=== PATIENT | male | born 1955 | race American Indian/Alaskan Native ===

== ENCOUNTER 2016-07-02 23:49 | Inpatient (IN) | payer MEDICARE, MEDICAID, OTHER ==
[2016-07-02 23:49] VITALS: BMI 31.0
--- NOTE | 2016-07-03 00:04 | C.PDOC ---
History Of Present Illness pt presents with increased shortness of breath, some chest discomfort with coughing. No f/c/n/v. Patient still smokes. Speaking in 3-4 word sentences. Time Seen by Provider: 07/03/16 00:03 History Per: Patient History/Exam Limitations: no limitations Onset/Duration Of Symptoms: Days Current Symptoms Are (Timing): Worse Initiating Event: Upper Respiratory Illness, Other Quality: Dull Exacerbating Factor(s): Coughing Current Respiratory Medications: See Home Med List Severity: Moderate Pain Scale Rating Of: 5 Associated Symptoms: Productive Cough. denies: Fever, Chills, Ankle/Leg Swelling Reports Recently: Seen In ED, Treated By A Physician, Hospitalized Recent travel outside of the [place]: No Additional History Per: Patient Past Medical History Reviewed: Historical Data, Nursing Documentation, Vital Signs Vital Signs: Last Vital Signs Temp 98.7 F 07/03/16 00:12 Pulse 102 H 07/03/16 01:22 Resp 20 07/03/16 01:22 BP 145/76 07/03/16 01:22 Pulse Ox 100 07/03/16 01:22 - Medical History PMH: Anxiety, Asthma, Bronchitis, COPD, Emphysema, HTN, Hypercholesterolemia Denies: Diabetes, Hepatitis, HIV, Chronic Kidney Disease, Seizures, Sexually Transmitted Disease - [facility] Procedures ALCOHOL DETOXIFICATION (07/16/14) DETOXIFICATION SERVICES FOR SUBSTANCE ABUSE TREATMENT (10/01/15) EXCISION OF TOE NAIL, EXTERNAL APPROACH (02/12/15) FLUOROSCOPY OF SUPERIOR VENA CAVA, GUIDANCE (02/21/15) HOME MANAGEMENT TREATMENT (02/12/15) INFLUENZA VACCINATION (12/19/14) INJECT/INFUSE NEC (02/12/14) INSERTION OF INFUSION DEV INTO SUP VENA CAVA, PERC APPROACH (09/09/15) INTRODUCE OF OTH THERAP SUBST INTO RESP TRACT, VIA OPENING (02/12/15) INTRODUCTION OF ANTI-INFLAM INTO RESP TRACT, VIA OPENING (08/27/15) MEDS MGMT FOR SUBSTANCE ABUSE TREATMENT, OTH REPL MED (01/11/16) NEBULIZER THERAPY (12/19/14) OXYGEN ENRICHMENT NEC (09/25/13) THERAPEUTIC EXERCISE TREATMENT OF MUSCULOSK WHOLE (02/12/15) ULTRASONOGRAPHY OF SUPERIOR VENA CAVA, GUIDANCE (02/21/15) VACCINATION NEC (09/25/13) Family History: States: No Known Family Hx - Social History Hx Tobacco Use: Yes Hx Alcohol Use: Yes (drinks vodka every day.) Hx Substance Use: No - Immunization History Hx Tetanus Toxoid Vaccination: Yes Hx Influenza Vaccination: Yes (01/2015) Hx Pneumococcal Vaccination: Yes (2011) Review Of Systems Constitutional: Negative for: Fever, Chills ENT: Negative for: Throat Pain Cardiovascular: Negative for: Chest Pain, Palpitations Respiratory: Positive for: Cough, Shortness of Breath Gastrointestinal: Negative for: Nausea, Vomiting, Abdominal Pain Genitourinary: Negative for: Dysuria Musculoskeletal: Negative for: Back Pain Skin: Negative for: Rash, Lesions, Jaundice Neurological: Negative for: Weakness Psych: Negative for: Anxiety Physical Exam - Physical Exam Appears: Non-toxic Skin: Warm, Dry Head: Atraumatic Teeth: Other (poor dentition) Neck: Supple Chest: Symmetrical Cardiovascular: Rhythm Regular Respiratory: No Rales, No Rhonchi, No Wheezing Gastrointestinal/Abdominal: Soft, No Tenderness, No Distention, No Guarding Back: Normal Inspection Extremity: Normal ROM Extremity: Bilateral: Atraumatic Neurological/Psych: Oriented x3, Normal Speech, Normal Cognition Gait: Other (with walker) ED Course And Treatment - Laboratory Results Result Diagrams: 07/03/16 00:46 07/03/16 01:18 ECG: Interpreted By Me, Viewed By Me ECG Rhythm: Sinus Rhythm (96), Nonspecific Changes Pulse Ox Interpretation: Normal - Radiology CXR: Interpreted by Me, Viewed By Me CXR Interpretation: Yes: Other (unchanged from 05/14/16). No: Infiltrates, Fracture, Pnemothorax Progress Note: blood work, solumedrol, duonebs, cxr, blood cultures. corrected calcium in 6.3 Critical Care Time - Critical Care Note Total Time (in mins): 30 Documented critical care: time excludes all time spent performing seperately billable procedures. Disposition Discussed With : Carlene Mayberry Comment: accepted the pt on her service and took over the care at 2:52 AM Doctor Will See Patient In The: Hospital Counseled Patient/Family Regarding: Studies Performed, Diagnosis - Disposition Disposition: HOSPITALIZED Disposition Time: 00:04 Condition: FAIR - POA Present On Arrival: Poor Glycemic Control - Clinical Impression Clinical Impression: Chronic obstructive lung disease, Dyspnea, Hypokalemia, Hypocalcemia Decision To Admit - Pt Status Changed To: Hospital Disposition Of: Inpatient - Admit Certification Admit to Inpatient:: After my assessment, the patient will require hospitalization for at least two midnights. This is because of the severity of symptoms shown, intensity of services needed, and/or the medical risk in this patient being treated as an outpatient. - InPatient: Physician Admission Certification: I certify that this patient requires 2 or more midnights of care for the following reason:: After my assessment, the patient will require hospitalization for at least two midnights. This is because of the severity of symptoms shown, intensity of services needed, and/or the medical risk in this patient being treated as an outpatient. - . Bed Request Type: Telemetry Admitting Physician: Carlene Mayberry Patient Diagnosis: Chronic obstructive lung disease, Dyspnea, Hypokalemia, Hypocalcemia
[2016-07-03] MEDS ORDERED: Albuterol-Ipratrop 3 mg / 0.5 (3 ml) UD ONE (00:40)
[2016-07-03] MEDS: Albuterol-Ipratrop 3 mg / 0.5 (3 ml) UD IH SCH ×5 (00:45→20:27)
[2016-07-03 00:49] LABS: BASO # 0.1 K/uL (0.0-0.2); EOS # 0.1 K/uL (0.0-0.7); EOS % 0.6 % (0.0-4.0); LYMPH # 1.8 K/uL (1.0-4.3); MEAN CELL VOLUME 79.2 fL (80.0-94.0); MEAN CORPUSCULAR HEMOGLOBIN 24.7 pg (27.0-31.0); MEAN CORPUSCULAR HGB CONC 31.2 g/dL (33.0-37.0); MEAN PLATELET VOLUME 8.9 fL (7.2-11.7); MONO % 9.7 % (0.0-10.0); RED CELL DISTRIBUTION WIDTH 18.6 % (11.5-14.5); WHITE BLOOD COUNT 9.8 K/uL (4.8-10.8)
[2016-07-03 00:50] LABS: ABG ALLEN TEST POS; DRAW SITE RRAD
[2016-07-03 01:02] LABS: INR 1.1
[2016-07-03 01:30] LABS: CHLORIDE 115 mmol/L (98-107); SODIUM 138 mmol/L (132-148)
[2016-07-03 01:32] LABS: ALB/GLOB RATIO 0.8 (1.0-2.1); ALKALINE PHOSPHATASE 39 U/L (38-126); AST/SGOT 18 U/L (17-59); BILIRUBIN,TOTAL 0.5 mg/dL (0.2-1.3); BLOOD UREA NITROGEN 8 mg/dL (9-20); GFR AFRICAN-AMERICAN > 60; TOTAL PROTEIN 4.5 g/dL (6.3-8.3)
[2016-07-03 01:33] LABS: ALT/SGPT 23 U/L (21-72); GLUCOSE,RANDOM 49 mg/dL (75-110)
[2016-07-03 02:08] LABS: POTASSIUM 2.3 mmol/L (3.6-5.2)
[2016-07-03 02:09] LABS: CALCIUM 4.7 mg/dl (8.6-10.4); CARBON DIOXIDE 6 mmol/L (22-30)
[2016-07-03] MEDS ORDERED: Potassium Chloride 20 mEq ER Tab PO STA (02:12)
[2016-07-03] MEDS ORDERED: Potassium Chloride 20 mEq ER Tab PO ONE (02:15)
[2016-07-03] MEDS ORDERED: Potassium Chloride 10 mEq ER Tab PO STA (02:17)
[2016-07-03 04:07] VITALS: RESP 20
--- NOTE | 2016-07-03 08:59 | RAD ---
PROCEDURE: CHEST RADIOGRAPH, 1 VIEW HISTORY: SOB COMPARISON: Comparison is made to 05/14/2016 FINDINGS: LUNGS: No evidence of new infiltrate or consolidation in the lungs. PLEURA: No pneumothorax or pleural fluid seen. CARDIOVASCULAR: Normal. OSSEOUS STRUCTURES: No significant abnormalities. VISUALIZED UPPER ABDOMEN: Normal. OTHER FINDINGS: None. IMPRESSION: No active disease.
[2016-07-03] MEDS: MethylPREDNISolone 40 mg Vial IVP SCH ×2 (09:52→21:18)
[2016-07-03] MEDS: Potassium Chloride 20 mEq ER Tab PO SCH (09:52)
[2016-07-03] MEDS: Magnesium Oxide 400 mg Tab UD PO SCH ×2 (09:52→17:26)
[2016-07-03] MEDS: cefTRIAXone IV 1 gm in Dextros 50 ML IVPB SCH (11:46)
[2016-07-03] MEDS: Azithromycin 500 MG in Sodium Chloride 0.9% 250 ML IVPB SCH (11:48)
[2016-07-03] MEDS: Calcium-Vit D 250 mg-125 Units Tab UD PO SCH ×2 (11:53→13:06)
[2016-07-03 19:18] LABS: RBC URINE < 1 /hpf (0-3); URINE BILIRUBIN NEGATIVE (NEGATIVE); URINE BLOOD 1+ (NEGATIVE); URINE COLOR Yellow (YELLOW); URINE GLUCOSE (UA) 3+ mg/dL (Normal); URINE KETONE 2+ mg/dL (NEGATIVE); URINE LEUKOCYTE ESTERASE NEG Leu/uL (Negative); URINE PROTEIN NEGATIVE (NEGATIVE); URINE UROBILINOGEN NORMAL mg/dL (0.2-1.0); WBC URINE < 1 /hpf (0-5)
[2016-07-03] MEDS: Fluticasone-Salmeterol 500-50mcg Diskus INH SCH (20:26)
--- NOTE | 2016-07-03 21:44 | HP ---
CHIEF COMPLAINT: Shortness of breath, coughing. HISTORY OF PRESENT ILLNESS: The patient is a 61-year-old male with history of asthma, COPD, emphysema, hypertension, degenerative joint disease, history of ethanol abuse. Came with increased shortness of breath, chest discomfort with coughing. No fever, no chills. No nausea, vomiting, diarrhea. The patient actively smokes and drinks. He was not able to say complete sentence. Symptoms started days ago, worse, then he came to the Emergency Room. Started with upper respiratory tract infection. Cough is productive. PAST MEDICAL HISTORY: Anxiety, asthma, bronchitis, COPD, emphysema, hypertension, hypercholesterolemia. FAMILY HISTORY: Father and mother noncontributory. SOCIAL HISTORY: Smoking, according to patient one cigarette per day but this is not possible. Alcohol, drinks vodka every day. Substance abuse denied. REVIEW OF SYSTEMS: The patient seen and examined in his room. Having tremors, coughing with shortness of breath. No hematuria or hematochezia. No swelling of the leg. No chest pain, no palpitation, no headache, no dizziness. PHYSICAL EXAMINATION: VITAL SIGNS: Temperature 98.7, pulse 72, blood pressure 132/73, respiratory rate 20. HEENT: Head normocephalic, atraumatic. Eyes PERRLA. Extraocular muscles intact. Conjunctivae pink. Eyelids unremarkable. Nose patent. Mucous membranes moist. NECK: Supple. No carotid bruit, JVD or thyromegaly. CHEST: Bilaterally symmetrical. HEART: S1, S2 positive. LUNGS: Positive wheezing bilaterally. ABDOMEN: Soft. Bowel sounds positive. No organomegaly. EXTREMITIES: No edema, no cyanosis. NEUROLOGIC: The patient is awake, alert, moving all 4 extremities. No focal deficits. LABORATORY DATA: White blood cells 9.8, hemoglobin 103, hematocrit 33.0, platelets noted , Sodium 138, potassium 2.3, BUN 8, creatinine 0.5, calcium 4.7 , magnesium 1.1. ASSESSMENT AND PLAN: The patient is a 61-year-old male with anemia, hypokalemia , hypocalcemia, hypomagnesemia, replaced; emphysema, bronchitis. EKG and chest x-ray done, reviewed by me. According to chest x-ray, no active disease. History of hypertension, hypercholesterolemia, anxiety, degenerative joint disease. Last admission, he got rehab also. Started on Advair. Calcium is replaced. Potassium is replaced. Magnesium replaced. Gastrointestinal protection given. Started on low dose of Solu-Medrol. Aspirin given. Rocephin , azithromycin started. We will start some Librium also. We will follow up. Carlene Mayberry MD cc: [id number] TT: 07/03/2016 21:44:22 sn MTDDonte
[2016-07-04] MEDS: Albuterol-Ipratrop 3 mg / 0.5 (3 ml) UD IH SCH ×4 (01:26→20:57)
[2016-07-04 07:22] LABS: HEMATOCRIT 29.2 % (35.0-51.0); MEAN CELL VOLUME 77.7 fL (80.0-94.0); MEAN CORPUSCULAR HEMOGLOBIN 24.7 pg (27.0-31.0); MEAN CORPUSCULAR HGB CONC 31.8 g/dL (33.0-37.0); MEAN PLATELET VOLUME 8.7 fL (7.2-11.7); RED CELL DISTRIBUTION WIDTH 18.6 % (11.5-14.5); WHITE BLOOD COUNT 8.7 K/uL (4.8-10.8)
[2016-07-04 08:02] LABS: THYROID STIMULATING HORMONE 0.29 mIU/L (0.46-4.68)
[2016-07-04 08:07] LABS: CHLORIDE 101 mmol/L (98-107)
[2016-07-04 08:08] LABS: SODIUM 136 mmol/L (132-148)
[2016-07-04 08:11] LABS: BLOOD UREA NITROGEN 20 mg/dL (9-20); CALCIUM 8.6 mg/dl (8.6-10.4); CARBON DIOXIDE 20 mmol/L (22-30); GFR AFRICAN-AMERICAN > 60; GLUCOSE,RANDOM 149 mg/dL (75-110)
[2016-07-04] MEDS: Fluticasone-Salmeterol 500-50mcg Diskus INH SCH ×2 (08:21→20:57)
[2016-07-04 09:40] LABS: MAGNESIUM 1.8 mg/dL (1.6-2.3)
[2016-07-04] MEDS: Azithromycin 500 MG in Sodium Chloride 0.9% 250 ML IVPB SCH (10:07)
[2016-07-04] MEDS: MethylPREDNISolone 40 mg Vial IVP SCH ×2 (10:07→21:24)
[2016-07-04] MEDS: cefTRIAXone IV 1 gm in Dextros 50 ML IVPB SCH (10:07)
[2016-07-04] MEDS: Calcium-Vit D 250 mg-125 Units Tab UD PO SCH (10:08)
[2016-07-04] MEDS: Magnesium Oxide 400 mg Tab UD PO SCH (10:08)
[2016-07-04] MEDS: Potassium Chloride 20 mEq ER Tab PO SCH (10:44)
--- NOTE | 2016-07-04 23:18 | CARD ---
APPROVED REPORT EKG Measurement Heart [id number] <Conclusion> Normal sinus rhythm Normal ECG
[2016-07-05] MEDS: Albuterol-Ipratrop 3 mg / 0.5 (3 ml) UD IH SCH ×4 (02:19→19:49)
[2016-07-05 07:58] VITALS: O2SAT 100
--- NOTE | 2016-07-05 09:55 | PN ---
DATE: 07/04/2016 SUBJECTIVE: The patient is seen and examined on the bedside, is comfortable, cough is getting better. Shortness of breath is getting better. No nausea, vomiting, or diarrhea. No hematuria or hematochezia. No swelling of the leg. No chest pain or palpitation. PHYSICAL EXAMINATION: VITAL SIGNS: Temperature 97.8, pulse 80, blood pressure 123/79, respiratory rate 20. HEENT: Head normocephalic, atraumatic. Eyes: PERRLA. Extraocular muscles intact. Conjunctivae pink. Eyelids unremarkable. Nose patent. Mucous membranes moist. NECK: Supple. No carotid bruit, JVD or thyromegaly. CHEST: Bilaterally symmetrical. HEART: S1, S2 positive. LUNGS: Positive wheezing bilaterally. ABDOMEN: Soft. Bowel sounds present. No organomegaly. EXTREMITIES: No edema, no cyanosis. NEUROLOGIC: The patient is awake, alert, moving all 4 extremities. No focal deficits. MEDICATIONS: Advair, azithromycin, vitamins, Pepcid, Rocephin, Singulair, Solu -Medrol, and Tylenol. LABORATORY DATA: White blood cell noted , hemoglobin 9.3, hematocrit 29.2, platelets 297. Sodium 136, potassium 4.0, BUN 20, creatinine 1.0, glucose is 149, magnesium 1.8. TSH 0.29. ASSESSMENT AND PLAN: The patient is a 61-year-old male seen by me on 2016. Has anemia, history of hypokalemia, replaced, now is within normal limits. History of hypomagnesemia, replaced, now it is within normal limits. History of hypocalcemia, replaced, now it is within normal limits. Hypothyroidism, came with elevation of chronic obstructive pulmonary disease, asthma, history of hypertension, degenerative joint disease, history of ethanol abuse, emphysema, hypercholesterolemia, anxiety, multiple times bronchitis and noncompliant. Still drinking and smoking getting Librium for alcohol delirium tremens and getting tapering dose of steroids. Physical therapy, out of bed. GI prophylaxis. Repeat labs. We will follow up. Carlene Mayberry MD cc: [id number] TT: 07/05/2016 09:54:49 Confirmation # [id number] Dictation # [id number] an MTDD
[2016-07-05] MEDS: Fluticasone-Salmeterol 500-50mcg Diskus INH SCH ×2 (10:02→19:49)
[2016-07-05] MEDS: MethylPREDNISolone 40 mg Vial IVP SCH ×3 (11:21→22:55)
[2016-07-05] MEDS: cefTRIAXone IV 1 gm in Dextros 50 ML IVPB SCH (11:21)
[2016-07-05] MEDS: Azithromycin 500 MG in Sodium Chloride 0.9% 250 ML IVPB SCH (11:21)
[2016-07-05] MEDS: Calcium-Vit D 250 mg-125 Units Tab UD PO SCH (11:21)
--- NOTE | 2016-07-06 01:50 | PN ---
DATE: 07/05/2016 SUBJECTIVE: The patient is a 61-year-old male. The patient is seen and examined at the bedside, loo ks comfortable. No nausea, vomiting, or diarrhea. No hematuria or hematochezia. No swelling of the leg. No chest pain, palpitations. No dizziness. No fever, no chills. PHYSICAL EXAMINATION: VITAL SIGNS: Temperature is 97.8, pulse 79, blood pressure 122/70, respiratory rate 20. HEAD: Normocephalic, atraumatic. EYES: PERRLA, extraocular muscles intact, conjunctivae clear. Nose: Patent. Mucous membranes mois t. NECK: Supple. No carotid bruit, JVD, or thyromegaly. CHEST: Bilaterally symmetrical. HEART: S1, S2 positive. LUNGS: Clear to auscultation. ABDOMEN: Soft. Bowel sounds present. No organomegaly. EXTREMITIES: No edema, no cyanosis. NEUROLOGIC: The patient is awake, alert, moving all 4 extremities. No focal deficits. MEDICATIONS: Advair, azithromycin, DuoNeb, heparin, Librium on a tapering dose, Pepcid, Rocephin, Si ngulair, Solu-Medrol tapering dose, Tylenol. LABORATORY DATA: We do not have recent labs today, but I reviewed old labs. ASSESSMENT AND PLAN: The patient is a 61-year-old male with anemia, history of hypokalemia; replaced , hypocalcemia; replaced, diabetes mellitus, glucosuria, ketosuria, hematuria. Came with exacerbatio n of chronic obstructive pulmonary disease, asthma, bronchitis, emphysema. History of hypertension, degenerative joint disease, history of ethanol abuse. Getting a tapering dose of Librium and getting a tapering dose of steroids and antibiotics. We will continue azithromycin and Rocephin for bronchi tis, Advair, Singulair for breathing, Pepcid for GI prophylaxis. Repeat labs. We will follow up. Carlene Mayberry MD cc: [id number] TT: 07/06/2016 01:49:34 Confirmation # [id number] Dictation # [id number] vn
[2016-07-06] MEDS: Albuterol-Ipratrop 3 mg / 0.5 (3 ml) UD IH SCH ×2 (01:56→07:44)
[2016-07-06] MEDS: Fluticasone-Salmeterol 500-50mcg Diskus INH SCH (07:44)
[2016-07-06 08:44] VITALS: BP 109/70; TEMP 98.2
[2016-07-06] MEDS: Calcium-Vit D 250 mg-125 Units Tab UD PO SCH (09:42)
[2016-07-06] MEDS: MethylPREDNISolone 40 mg Vial IVP SCH (09:42)
[2016-07-06] MEDS: cefTRIAXone IV 1 gm in Dextros 50 ML IVPB SCH (09:44)
[2016-07-06] MEDS ORDERED: Pneumococcal 23-Valent Vaccine IM ONE (10:00)
[2016-07-06] MEDS: Azithromycin 500 MG in Sodium Chloride 0.9% 250 ML IVPB SCH (11:53)
[2016-07-06 12:34] VITALS: PULSE 81
--- NOTE | 2016-07-06 12:44 | CP.PCM.PN ---
Subjective - Date & Time of Evaluation Date of Evaluation: 07/06/16 Time of Evaluation: 12:00 - Subjective Subjective: Pt seen an d examined today states feels better, sob improved, denies any chest pain, sob, palpitations no tremors noted Objective - Vital Signs/Intake and Output Vital Signs (last 24 hours): Temp Pulse Resp BP Pulse Ox 98.2 F 81 20 109/70 100 07/06/16 08:42 07/06/16 10:00 07/06/16 08:42 07/06/16 08:42 07/06/16 08:42 Intake and Output: 07/06/16 07/06/16 06:59 18:59 Output Total 450 Balance -450 - Medications Medications: Current Medications Acetaminophen (Tylenol 325mg Tab) 650 mg PO Q4H PRN PRN Reason: pain fever Albuterol/Ipratropium (Duoneb 3 Mg/0.5 Mg (3 Ml) Ud) 3 ml IH RQ6 [facility] Last Admin: 07/06/16 07:44 Dose: 3 ml Calcium/Vitamin D (Oscal-D 250 Mg-125 Units Tab) 1 tab PO DAILY [facility] Last Admin: 07/06/16 09:42 Dose: 1 tab Chlordiazepoxide (Librium) 5 mg PO Q8 [facility] Last Admin: 07/06/16 05:55 Dose: 5 mg Famotidine (Pepcid) 40 mg PO DAILY [facility] Last Admin: 07/06/16 09:43 Dose: 40 mg Heparin Sodium (Porcine) (Heparin) 5,000 units SC Q12 [facility] Last Admin: 07/06/16 09:41 Dose: 5,000 units Azithromycin 500 mg/ Sodium (Chloride) 250 mls @ 250 mls/hr IVPB DAILY [facility] Last Admin: 07/06/16 11:53 Dose: 250 mls/hr Ceftriaxone Sodium (Rocephin Iv 1 Gm Duplex) 50 mls @ 100 mls/hr IVPB DAILY [facility] Last Admin: 07/06/16 09:44 Dose: 100 mls/hr Methylprednisolone (Solu-Medrol) 10 mg IVP Q12 [facility] Last Admin: 07/06/16 09:42 Dose: 10 mg Montelukast Sodium (Singulair) 10 mg PO HS [facility] Last Admin: 07/05/16 21:10 Dose: 10 mg Fluticasone/Salmeterol (Advair Diskus 500/50) 1 puff INH RQ12 [facility] Last Admin: 07/06/16 07:44 Dose: 1 puff - Labs Labs: 07/04/16 07:13 07/04/16 07:13 PT 12.0 SECONDS (9.7-12.2) 07/03/16 00:46 INR 1.1 07/03/16 00:46 APTT 29 SECONDS (21-34) 07/03/16 00:46 Assessment and Plan - Assessment and Plan (Free Text) Assessment: A/P 61 YR old male admitted for exc. asthma/ alcohol intoxication vss- stable spo2- 100 % Room air seen by Dr. Ramirez, cleared for discharge home today an df/u with Dr. Ramirez office next week discharge plan discussed with patient who understands and agrees with plan Pt instructed to returns to ED if symptoms get worse Meds to bedside offered and patient accepted
--- NOTE | 2016-07-19 09:20 | DS ---
CHIEF COMPLAINT: Shortness of breath, coughing. HISTORY OF PRESENT ILLNESS: The patient is a 61-year-old male with history of asthma, COPD, emphysem a, hypertension, degenerative joint disease, history of ethanol abuse. Came with increasing shortnes s of breath, chest discomfort, coughing. No fever, no chills. No nausea, vomiting, diarrhea. The p atient is actively smoking and is drinking. We admitted the patient, gave nebulizer treatment, stero ids, antibiotics, improved, discharged home. Banana bag was given, thiamine given, Librium given. PAST MEDICAL HISTORY: Anxiety, asthma, bronchitis, COPD, emphysema, hypertension, hypercholesterolem ia. FAMILY HISTORY: Father and mother noncontributory. SOCIAL HISTORY: Smoking, according to patient, 1 cigarette per day. Alcohol yes, using vodka every day. Substance abuse denied. REVIEW OF SYSTEMS: The patient was seen and examined on the bedside. Looks comfortable. No nausea, vomiting, diarrhea. No hematuria, no hematochezia. Cough is better. Shortness of breath is better . Wheezing is better. Tremors are better. Feels better. No palpitation. PHYSICAL EXAMINATION: VITAL SIGNS: Temperature 98.2, pulse 81, respiratory rate 20, blood pressure 109/70, pulse oximetry 100%. HEENT: Head normocephalic, atraumatic. Eyes, PERRLA. Extraocular muscles intact. Conjunctivae [place]. Eyelids unremarkable. Nose patent. Mucous membranes moist. NECK: Supple. No carotid bruit, no JVD, no thyromegaly. CHEST: Bilaterally symmetrical. HEART: S1, S2 positive. LUNGS: Clear to auscultation. ABDOMEN: Soft. Bowel sounds present. No organomegaly. EXTREMITIES: No edema, no cyanosis. NEUROLOGIC: The patient is awake, alert, moving all 4 extremities. No focal deficits. LABORATORIES: White blood cells 8.7, hemoglobin 9.3, hematocrit 29.2, platelets 297. Sodium 136, po tassium 4.0, BUN 20, creatinine 1.0, glucose 149. ASSESSMENT AND PLAN: The patient is a 61-year-old male with anemia, hyperglycemia, came with exacerb ation of asthma, chronic obstructive pulmonary disease, bronchitis, history of ethanol toxicity, hype rtension, hypercholesterolemia, noncompliant. The patient was admitted, antibiotics, gave bronchodil ators, Solu-Medrol given, got better, discharged home on 07/06/2016 with followup with primary care ysician next week. Discharge instruction was given. The patient understands and agreed with the susanne n. Prescription of medications given by the nurse practitioner, Opal Link APN. Will follow up a s outpatient. Carlene Mayberry MD cc: [id number] TT: 07/19/2016 09:19:48 en
== END 2016-07-06 14:30 | disposition home or self-care (01) | DRG 191 ==
LOC: C.ER 23:49 → C.9E 07-03 02:53 → C.5T 07-03 03:27
PROVIDERS: ADMIT Internal Medicine; ATTEND Internal Medicine
DX: J44.1 Chronic obstructive pulmonary disease with (acute) exacerbation (principal); F10.231 Alcohol dependence with withdrawal delirium; E83.42 Hypomagnesemia; E83.51 Hypocalcemia; J45.901 Unspecified asthma with (acute) exacerbation; D64.9 Anemia, unspecified; I10 Essential (primary) hypertension; E03.9 Hypothyroidism, unspecified; E78.00 Pure hypercholesterolemia, unspecified; F17.200 Nicotine dependence, unspecified, uncomplicated; E11.9 Type 2 diabetes mellitus without complications; E87.6 Hypokalemia; F41.9 Anxiety disorder, unspecified

== ENCOUNTER 2016-07-29 20:18 | Inpatient (IN) | payer MEDICARE, OTHER ==
[2016-07-29 20:18] VITALS: BMI 31.0
--- NOTE | 2016-07-29 21:18 | C.PDOC ---
History Of Present Illness patient presents with shortness of breath, speaking in 4-5 word sentences. No f/ c/n/v. Still smokes and drinks. No cp or palpitations Time Seen by Provider: 07/29/16 21:18 Chief Complaint (Nursing): Shortness Of Breath History Per: Patient History/Exam Limitations: no limitations Onset/Duration Of Symptoms: Days Current Symptoms Are (Timing): Still Present Initiating Event: Upper Respiratory Illness Quality: Dull Exacerbating Factor(s): Coughing Current Respiratory Medications: See Home Med List Severity: Moderate Pain Scale Rating Of: 5 Associated Symptoms: denies: Fever, Chills, Anxiety Reports Recently: Seen In ED, Treated By A Physician, Hospitalized Recent travel outside of the [place]: No Additional History Per: Patient Past Medical History Reviewed: Historical Data, Nursing Documentation, Vital Signs Vital Signs: Last Vital Signs Temp 98.6 F 07/29/16 20:26 Pulse 100 H 07/29/16 21:30 Resp 24 07/29/16 20:32 BP 134/87 07/29/16 20:26 Pulse Ox 100 07/29/16 22:58 - Medical History PMH: Anxiety, Asthma, Bronchitis, COPD, Emphysema, HTN, Hypercholesterolemia Denies: Diabetes, Hepatitis, HIV, Chronic Kidney Disease, Seizures, Sexually Transmitted Disease - [facility] Procedures ALCOHOL DETOXIFICATION (07/16/14) DETOXIFICATION SERVICES FOR SUBSTANCE ABUSE TREATMENT (10/01/15) EXCISION OF TOE NAIL, EXTERNAL APPROACH (02/12/15) FLUOROSCOPY OF SUPERIOR VENA CAVA, GUIDANCE (02/21/15) HOME MANAGEMENT TREATMENT (02/12/15) INFLUENZA VACCINATION (12/19/14) INJECT/INFUSE NEC (02/12/14) INSERTION OF INFUSION DEV INTO SUP VENA CAVA, PERC APPROACH (09/09/15) INTRODUCE OF OTH THERAP SUBST INTO RESP TRACT, VIA OPENING (02/12/15) INTRODUCTION OF ANTI-INFLAM INTO RESP TRACT, VIA OPENING (08/27/15) MEDS MGMT FOR SUBSTANCE ABUSE TREATMENT, OTH REPL MED (01/11/16) NEBULIZER THERAPY (12/19/14) OXYGEN ENRICHMENT NEC (09/25/13) THERAPEUTIC EXERCISE TREATMENT OF MUSCULOSK WHOLE (02/12/15) ULTRASONOGRAPHY OF SUPERIOR VENA CAVA, GUIDANCE (02/21/15) VACCINATION NEC (09/25/13) Family History: States: No Known Family Hx - Social History Hx Tobacco Use: Yes Hx Alcohol Use: Yes (drinks vodka everyday) Hx Substance Use: No - Immunization History Hx Tetanus Toxoid Vaccination: Yes Hx Influenza Vaccination: Yes (01/2015) Hx Pneumococcal Vaccination: Yes (2011) Review Of Systems Constitutional: Negative for: Fever, Chills Eyes: Negative for: Redness ENT: Negative for: Throat Pain Cardiovascular: Negative for: Chest Pain Respiratory: Positive for: Cough, Shortness of Breath Gastrointestinal: Negative for: Nausea, Vomiting Genitourinary: Negative for: Dysuria Musculoskeletal: Negative for: Back Pain Skin: Negative for: Rash, Lesions, Jaundice, Bruising Neurological: Negative for: Weakness Psych: Negative for: Anxiety Physical Exam - Physical Exam Appears: Non-toxic Skin: Warm, Dry Head: Atraumatic Oral Mucosa: Moist Neck: Supple Chest: Symmetrical Cardiovascular: Rhythm Regular Respiratory: Decreased Breath Sounds, No Rales, No Rhonchi, Wheezing Gastrointestinal/Abdominal: Soft, Tenderness (mild rlq lymph node), No Distention Back: Normal Inspection, No CVA Tenderness Extremity: Normal ROM Extremity: Bilateral: Atraumatic, Normal Color And Temperature, Normal ROM Neurological/Psych: Oriented x3, Normal Speech, Normal Cognition Gait: Steady ED Course And Treatment - Laboratory Results Result Diagrams: 07/29/16 22:08 07/29/16 22:08 ECG: Interpreted By Me, Viewed By Me ECG Rhythm: Sinus Rhythm (102), Nonspecific Changes O2 Sat by Pulse Oximetry: 100 Pulse Ox Interpretation: Normal - Radiology CXR: Interpreted by Me, Viewed By Me CXR Interpretation: Yes: Other (unchanged from 07/03/16). No: Infiltrates, Fracture, Pnemothorax Progress Note: nebs, steroids, fluids Disposition Discussed With : Carlene Mayberry Comment: accepted the pt on his service and took over the care at 12:08AM Doctor Will See Patient In The: Hospital Counseled Patient/Family Regarding: Studies Performed, Diagnosis - Disposition Disposition: HOSPITALIZED Disposition Time: 21:18 Condition: FAIR - POA Present On Arrival: Poor Glycemic Control - Clinical Impression Clinical Impression: COPD (chronic obstructive pulmonary disease), Alcohol abuse, Alcohol withdrawal Decision To Admit - Pt Status Changed To: Hospital Disposition Of: Inpatient - Admit Certification Admit to Inpatient:: After my assessment, the patient will require hospitalization for at least two midnights. This is because of the severity of symptoms shown, intensity of services needed, and/or the medical risk in this patient being treated as an outpatient. - InPatient: Physician Admission Certification: I certify that this patient requires 2 or more midnights of care for the following reason:: After my assessment, the patient will require hospitalization for at least two midnights. This is because of the severity of symptoms shown, intensity of services needed, and/or the medical risk in this patient being treated as an outpatient. - . Bed Request Type: Regular Admitting Physician: Carlene Mayberry Patient Diagnosis: COPD (chronic obstructive pulmonary disease), Alcohol abuse, Alcohol withdrawal
[2016-07-29] MEDS: Albuterol-Ipratrop 3 mg / 0.5 (3 ml) UD IH SCH ×3 (21:30→21:56)
[2016-07-29] MEDS ORDERED: Albuterol-Ipratrop 3 mg / 0.5 (3 ml) UD ONE (21:34)
[2016-07-29 22:11] LABS: HEMATOCRIT 30.4 % (35.0-51.0); MEAN CELL VOLUME 76.8 fL (80.0-94.0); MEAN CORPUSCULAR HEMOGLOBIN 24.7 pg (27.0-31.0); MEAN CORPUSCULAR HGB CONC 32.2 g/dL (33.0-37.0); MEAN PLATELET VOLUME 8.1 fL (7.2-11.7); PLATELET COUNT 367 K/uL (130-400); RED CELL DISTRIBUTION WIDTH 19.8 % (11.5-14.5)
[2016-07-29 22:19] LABS: CHLORIDE 102 mmol/L (98-107)
[2016-07-29 22:20] LABS: POTASSIUM 3.3 mmol/L (3.6-5.2); SODIUM 139 mmol/L (132-148)
[2016-07-29 22:22] LABS: ALB/GLOB RATIO 1.1 (1.0-2.1); ALKALINE PHOSPHATASE 93 U/L (38-126); AST/SGOT 20 U/L (17-59); BILIRUBIN,TOTAL 0.8 mg/dL (0.2-1.3); BLOOD UREA NITROGEN 13 mg/dL (9-20); CARBON DIOXIDE 20 mmol/L (22-30); GFR AFRICAN-AMERICAN > 60; TOTAL PROTEIN 7.5 g/dL (6.3-8.3)
[2016-07-29 22:23] LABS: ALCOHOL SERUM 25 mg/dl (0-10); ALT/SGPT 14 U/L (21-72); CALCIUM 8.7 mg/dl (8.6-10.4); GLUCOSE,RANDOM 133 mg/dL (75-110)
[2016-07-29 22:29] LABS: ABG ALLEN TEST POS; DRAW SITE RRA
[2016-07-30 00:08] LABS: NEUTROPHIL 86 % (50-75); TOTAL CELLS COUNTED 100
[2016-07-30 02:18] VITALS: RESP 20
[2016-07-30] MEDS: Albuterol-Ipratrop 3 mg / 0.5 (3 ml) UD INH SCH ×2 (05:36→08:59)
--- NOTE | 2016-07-30 08:28 | RAD ---
HISTORY: SOB COMPARISON: Chest x-ray performed 07/03/16 TECHNIQUE: Chest, one view. FINDINGS: LUNGS: No focal consolidation. Please note that chest x-ray has limited sensitivity for the detection of pulmonary masses. PLEURA: No significant pleural effusion identified. No definite pneumothorax . CARDIOVASCULAR: The cardiomediastinal silhouette appears within normal limits of size. OSSEOUS STRUCTURES: No acute osseous abnormality identified. VISUALIZED UPPER ABDOMEN: Unremarkable. OTHER FINDINGS: None. IMPRESSION: No focal consolidation, significant pleural effusion, or definite pneumothorax identified.
[2016-07-30] MEDS ORDERED: Potassium Chloride 20 mEq ER Tab PO STA (09:37)
[2016-07-30] MEDS ORDERED: Multivitamin (MVI) 10 ML, Thiamine 100 MG, Folic Acid 1 MG in Sodium Chloride 0.9% 1,00... IV ONE (10:30)
[2016-07-30 11:13] LABS: RBC URINE < 1 /hpf (0-3); URINE BILIRUBIN NEGATIVE (NEGATIVE); URINE BLOOD NEGATIVE (NEGATIVE); URINE COLOR Yellow (YELLOW); URINE GLUCOSE (UA) 3+ mg/dL (Normal); URINE KETONE TRACE mg/dL (NEGATIVE); URINE LEUKOCYTE ESTERASE NEG Leu/uL (Negative); URINE PROTEIN 1+ mg/dL (NEGATIVE); URINE UROBILINOGEN NORMAL mg/dL (0.2-1.0); WBC URINE < 1 /hpf (0-5)
[2016-07-30] MEDS: Albuterol-Ipratrop 3 mg / 0.5 (3 ml) UD IH SCH ×3 (11:38→19:39)
[2016-07-30 12:14] LABS: BASO % 0.2 % (0.0-2.0); HEMATOCRIT 29.4 % (35.0-51.0); LYMPH # 0.3 K/uL (1.0-4.3); LYMPH % 9.8 % (20.0-40.0); MEAN CELL VOLUME 77.4 fL (80.0-94.0); MEAN CORPUSCULAR HEMOGLOBIN 23.9 pg (27.0-31.0); MEAN CORPUSCULAR HGB CONC 30.9 g/dL (33.0-37.0); MEAN PLATELET VOLUME 8.7 fL (7.2-11.7); MONO # 0.2 K/uL (0.0-0.8); MONO % 8.2 % (0.0-10.0); NRBC % 0.1 % (0.0-2.0); PLATELET COUNT 334 K/uL (130-400); RED CELL DISTRIBUTION WIDTH 19.6 % (11.5-14.5); WHITE BLOOD COUNT 2.8 K/uL (4.8-10.8)
[2016-07-30 12:17] LABS: CHLORIDE 101 mmol/L (98-107)
[2016-07-30 12:18] LABS: POTASSIUM 3.7 mmol/L (3.6-5.2); SODIUM 137 mmol/L (132-148)
[2016-07-30 12:20] LABS: ALB/GLOB RATIO 1.2 (1.0-2.1); ALKALINE PHOSPHATASE 74 U/L (38-126); AST/SGOT 17 U/L (17-59); BILIRUBIN,TOTAL 0.9 mg/dL (0.2-1.3); BLOOD UREA NITROGEN 14 mg/dL (9-20); CARBON DIOXIDE 21 mmol/L (22-30); GFR AFRICAN-AMERICAN > 60; TOTAL PROTEIN 6.9 g/dL (6.3-8.3)
[2016-07-30 12:21] LABS: ALT/SGPT 10 U/L (21-72); CALCIUM 8.2 mg/dl (8.6-10.4); GLUCOSE,RANDOM 144 mg/dL (75-110)
[2016-07-30 13:54] LABS: NEUTROPHIL 87 % (50-75); TOTAL CELLS COUNTED 100
[2016-07-30] MEDS: Fluticasone-Salmeterol 500-50mcg Diskus INH SCH (19:39)
[2016-07-30] MEDS: MethylPREDNISolone 40 mg Vial IVP SCH (21:26)
[2016-07-31] MEDS: Albuterol-Ipratrop 3 mg / 0.5 (3 ml) UD IH SCH ×4 (01:39→20:39)
[2016-07-31] MEDS: Fluticasone-Salmeterol 500-50mcg Diskus INH SCH ×2 (07:52→20:39)
--- NOTE | 2016-07-31 09:18 | HP ---
The patient is a 61-year-old male. The patient is seen and examined on 2016. CHIEF COMPLAINT: Shortness of breath, coughing, cannot speak even 1 sentence. HISTORY OF PRESENT ILLNESS: The patient is a 61-year-old male with past medical history of asthma, emphysema. Came with shortness of breath, coughing. No fever, chills. No nausea, vomiting, diarrhea. Still smokes and drinks. No chest pain, no palpitation, but has shortness of breath, not exacerbation and relieving factors. It is from days. Still present at the time of admission. History of upper respiratory tract illness, history of ethanol abuse. Denies fever, chills, anxiety. Tried to use inhalers, but it was not helping as outpatient. She came in the hospital after failure of outpatient treatment. PAST MEDICAL HISTORY: Anxiety, asthma, bronchitis, COPD, emphysema, hypertension, hypercholesterolemia. FAMILY HISTORY: Father and mother noncontributory. HABITS: Smoking yes. Alcohol yes, drinks vodka every day. Substance abuse. ALLERGIES: The patient is not allergic with any medications. HOME MEDICATIONS: Reviewed by me. REVIEW OF SYSTEMS: The patient seen and examined on the bedside, looks comfortable. No nausea, vomiting, diarrhea. No hematuria, no hematochezia. No swelling of the legs, but having shortness of breath, even cannot say a few sentences together. No fever, no chills. PHYSICAL EXAMINATION: VITAL SIGNS: Temperature 98.1, pulse 103, blood pressure 128/74, respiratory rate 20. HEENT: Head normocephalic, atraumatic. Eyes: PERRLA. Extraocular muscles intact. Conjunctivae pink. Eyelids unremarkable. Nose patent. NECK: Supple. No carotid bruit, no JVD, no thyromegaly. CHEST: Bilaterally symmetrical. HEART: S1, S2 positive. LUNGS: Clear to auscultation. ABDOMEN: Soft. Bowel sounds positive. No organomegaly. EXTREMITIES: No edema, no cyanosis. NEUROLOGIC: The patient is awake, alert, moving all 4 extremities. No focal deficits. LABORATORIES: White blood cells 2.8, on admission was 4, hemoglobin 9.1, hematocrit 29.4, platelets 334. Sodium 137, potassium 3.7, BUN 14, creatinine 0.8, glucose 144. Total bilirubin 8.4. ASSESSMENT AND PLAN: The patient is a 61-year-old male with leukopenia, anemia , increased carbon dioxide, hyperglycemia, hypocalcemia, proteinuria, glucosuria. Alcohol level was 25. Came with exacerbation of chronic obstructive pulmonary disease, asthma, ethanol abuse. Put on bana drip and Librium to avoid delirium tremens and withdrawal. History of hypertension, hypercholesterolemia, degenerative joint disease. Gastrointestinal and deep venous thrombosis prophylaxis. Repeat labs. All medication started, even steroids started. Will follow up. Carlene Mayberry MD cc: [id number] TT: 07/31/2016 09:17:42 en MTDD
[2016-07-31] MEDS: Azithromycin 500 MG in Sodium Chloride 0.9% 250 ML IVPB SCH (09:31)
[2016-07-31] MEDS: MethylPREDNISolone 40 mg Vial IVP SCH ×2 (09:32→21:04)
--- NOTE | 2016-07-31 12:27 | CP.PCM.PN ---
Subjective - Date & Time of Evaluation Date of Evaluation: 07/31/16 Time of Evaluation: 12:15 - Subjective Subjective: House Doctor Note: CODE STAR. Code star was called for patient for unwitnessed fall. Patient was admitted for COPD and asthma. He reports feeling overall weakness. He went to the bathroom and fell when he went to lower himself into the toilet. He fell on his "behind" and did not hit his head. He hit his right elbow and it is hurting a bit now as he lays in bed. Fall was unwitnessed and patient reported it to the nurse when she came into the room to dispense medications. No other complaints at this time. No dizziness, chest pain, fevers, chills, nausea, vomiting. He is still a little SOB secondary to asthma. Will X ray right wrist and elbow. No CT head needed since patient did not hit his head and maintained consciousness. PT order recommended. Bed side commode and urinal ordered. Gen: AAO X3, NAD Cardio: RRR, no murmurs Pulm: some wheezing and rhonchi Skin: clean with no bruising, cuts or abrasions. Extremities: moving all extremities and no edema Farzana, DO- PGY 2 Objective - Vital Signs/Intake and Output Vital Signs (last 24 hours): Temp Pulse Resp BP Pulse Ox 98.2 F 95 H 20 157/80 H 98 07/31/16 08:04 07/31/16 08:04 07/31/16 08:04 07/31/16 08:04 07/31/16 08:04 Intake and Output: 07/31/16 07/31/16 06:59 18:59 Intake Total 120 Output Total 220 Balance -100 - Medications Medications: Current Medications Acetaminophen (Tylenol 325mg Tab) 650 mg PO Q4H PRN PRN Reason: pain fever Albuterol/Ipratropium (Duoneb 3 Mg/0.5 Mg (3 Ml) Ud) 3 ml IH RQ6 [facility] Last Admin: 07/31/16 07:52 Dose: 3 ml Chlordiazepoxide (Librium) 25 mg PO Q8 PRN PRN Reason: anxiety , ethnol withdrawl Famotidine (Pepcid) 40 mg PO DAILY [facility] Last Admin: 07/31/16 09:31 Dose: 40 mg Heparin Sodium (Porcine) (Heparin) 5,000 units SC Q12 [facility] Last Admin: 07/31/16 09:31 Dose: 5,000 units Azithromycin 500 mg/ Sodium (Chloride) 250 mls @ 166.667 mls/hr IVPB DAILY [facility] Last Admin: 07/31/16 09:31 Dose: 166.667 mls/hr Methylprednisolone (Solu-Medrol) 40 mg IVP Q12 [facility] [place] Last Admin: 07/31/16 09:32 Dose: 40 mg Fluticasone/Salmeterol (Advair Diskus 500/50) 1 puff INH RQ12 [facility] [place] Last Admin: 07/31/16 07:52 Dose: 1 puff - Labs Labs: 07/30/16 11:55 07/30/16 11:55 PT 10.8 SECONDS (9.7-12.2) 07/29/16 22:08 INR 1.0 07/29/16 22:08 APTT 27 SECONDS (21-34) 07/29/16 22:08 - Constitutional Appears: No Acute Distress - Head Exam Head Exam: NORMAL INSPECTION, NORMOCEPHALIC - Eye Exam Eye Exam: EOMI, Normal appearance - ENT Exam ENT Exam: Mucous Membranes Moist - Neck Exam Neck Exam: Full ROM - Respiratory Exam Respiratory Exam: Wheezes, NORMAL BREATHING PATTERN - Cardiovascular Exam Cardiovascular Exam: REGULAR RHYTHM, +S1, +S2 - GI/Abdominal Exam GI & Abdominal Exam: Soft. absent: Distended, Tenderness - Extremities Exam Extremities Exam: Normal Inspection, Tenderness (right wrist). absent: Pedal Edema - Back Exam Back Exam: NORMAL INSPECTION - Neurological Exam Neurological Exam: Alert, Awake, Oriented x3 - Psychiatric Exam Psychiatric exam: Normal Affect, Normal Mood - Skin Skin Exam: Normal Color, Warm
--- NOTE | 2016-07-31 15:07 | RAD ---
PROCEDURE: Right Wrist Radiographs. HISTORY: code star COMPARISON: None available. FINDINGS: BONES: No acute displaced fracture. JOINTS: No dislocation. SOFT TISSUES: Unremarkable. No evidence of radiopaque foreign body OTHER FINDINGS: None. IMPRESSION: No acute displaced fracture, dislocation, or significant joint effusion identified. If symptoms persist, or if there is continued clinical concern, x-ray follow-up in 7-10 days should be considered.
--- NOTE | 2016-07-31 15:10 | RAD ---
PROCEDURE: Radiographs of the right elbow. HISTORY: code star COMPARISON: None available. FINDINGS: BONES: No acute displaced fracture. Well corticated ossific density medial to the ulna likely related to remote injury. JOINTS: No dislocation. SOFT TISSUES: Unremarkable. No evidence of radiopaque foreign body. JOINT EFFUSION: No significant joint effusion. OTHER FINDINGS: None IMPRESSION: No acute displaced fracture, dislocation, or significant joint effusion identified. If high clinical index of suspicion for occult fracture persists, recommend cross-sectional imaging for further evaluation.
[2016-08-01] MEDS: Albuterol-Ipratrop 3 mg / 0.5 (3 ml) UD IH SCH ×4 (03:19→20:03)
--- NOTE | 2016-08-01 08:29 | PN ---
DATE: 07/31/2016 The patient is a 61-year-old male. The patient was seen and examined on the bedside early in the [place] emergency department, looks comfortable, just complaining of pain in the hip area. Otherwise, no nausea, vomiting, d iarrhea. No hematuria, no hematochezia. No swelling of the legs. No chest pain, no palpitation, no headache, no dizziness, no fever, no chills. Later on, I heard that patient has fall. Seen by the house physician and patient was put on fall precautions and x-rays were done. PHYSICAL EXAMINATION: VITAL SIGNS: Temperature 98.8, pulse 80, blood pressure 143/84, respiratory rate 20. HEENT: Head normocephalic, atraumatic. Eyes, PERRLA. Extraocular muscles intact. Conjunctivae pin k, clear. Nose patent. NECK: Supple. No carotid bruit, no JVD, no thyromegaly. CHEST: Bilaterally symmetrical. HEART: S1, S2 positive. LUNGS: Clear to auscultation. ABDOMEN: Soft, bowel sounds positive. No organomegaly. EXTREMITIES: No edema, no cyanosis. NEUROLOGIC: The patient is awake, alert and moving all 4 extremities, no focal deficit. MEDICATIONS: Advair, azithromycin, DuoNeb, heparin, Librium, Pepcid, Solu-Medrol, Tylenol, tramadol. LABORATORIES: White blood cells 2.8, hemoglobin 9.1, hematocrit 29.4, platelets 334. Sodium 134, po tassium 3.7, BUN 14, creatinine 0.8, glucose 144. ASSESSMENT AND PLAN: The patient is a 61-year-old male with leukopenia, anemia, hyperglycemia, hypoc alcemia, proteinuria, glucosuria, history of ethanol abuse, had fall today, sent for x-rays, wrist an d elbow by house physician. No acute displaced fracture, dislocation or significant joint effusion i dentified in the elbow in 3 views routine and in wrist. The patient has history of chronic obstructi ve pulmonary disease, asthma, hypertension, hypercholesterolemia, degenerative joint disease, has [facility] admissions for ethanol abuse. The patient is getting Librium and tapering dose of steroids. C ontalbino present treatment. Gastrointestinal and deep venous thrombosis prophylaxis. Repeat labs. W e will follow up. Carlene Mayberry MD cc: [id number] TT: 08/01/2016 08:29:11 Confirmation # [id number] Dictation # [id number]
[2016-08-01 08:33] LABS: HEMATOCRIT 28.3 % (35.0-51.0); MEAN CELL VOLUME 76.6 fL (80.0-94.0); MEAN CORPUSCULAR HEMOGLOBIN 24.9 pg (27.0-31.0); MEAN CORPUSCULAR HGB CONC 32.4 g/dL (33.0-37.0); MEAN PLATELET VOLUME 8.7 fL (7.2-11.7); RED CELL DISTRIBUTION WIDTH 19.8 % (11.5-14.5)
[2016-08-01 08:36] LABS: WHITE BLOOD COUNT 8.1 K/uL (4.8-10.8)
[2016-08-01 08:55] LABS: CHLORIDE 105 mmol/L (98-107); SODIUM 138 mmol/L (132-148)
[2016-08-01 08:56] LABS: POTASSIUM 4.2 mmol/L (3.6-5.2)
[2016-08-01 08:58] LABS: ALB/GLOB RATIO 1.1 (1.0-2.1); ALKALINE PHOSPHATASE 68 U/L (38-126); ALT/SGPT 13 U/L (21-72); AST/SGOT 14 U/L (17-59); BILIRUBIN,TOTAL 0.6 mg/dL (0.2-1.3); BLOOD UREA NITROGEN 23 mg/dL (9-20); CARBON DIOXIDE 22 mmol/L (22-30); GFR AFRICAN-AMERICAN > 60; TOTAL PROTEIN 6.4 g/dL (6.3-8.3)
[2016-08-01 08:59] LABS: CALCIUM 8.3 mg/dl (8.6-10.4); GLUCOSE,RANDOM 92 mg/dL (75-110)
[2016-08-01] MEDS: Fluticasone-Salmeterol 500-50mcg Diskus INH SCH ×2 (09:50→20:03)
[2016-08-01] MEDS: MethylPREDNISolone 40 mg Vial IVP SCH ×2 (10:02→22:08)
[2016-08-01] MEDS: Azithromycin 500 MG in Sodium Chloride 0.9% 250 ML IVPB SCH (10:03)
[2016-08-01 15:26] LABS: LYMPH # 0.8 K/uL (1.0-4.3); MONO # 0.7 K/uL (0.0-0.8)
[2016-08-02] MEDS: Albuterol-Ipratrop 3 mg / 0.5 (3 ml) UD IH SCH ×3 (02:13→14:41)
--- NOTE | 2016-08-02 06:41 | PN ---
DATE: 08/01/2016 SUBJECTIVE: The patient was seen and examined on the bedside. Looks comfortable. No nausea, vomiti ng, or diarrhea. No hematuria or hematochezia. No swelling of the leg. Tremors are getting better. Breathing is getting better. PHYSICAL EXAMINATION: VITAL SIGNS: Temperature 98.4, pulse 90, blood pressure 134/76, respiratory rate 20. HEENT: Head normocephalic, atraumatic. Eyes: PERRLA. Extraocular muscles intact. Conjunctivae cl ear. Nose patent. Mucous membranes moist. NECK: Supple. No carotid bruit, JVD or thyromegaly. CHEST: Bilaterally symmetrical. HEART: S1, S2 positive. LUNGS: Clear to auscultation. ABDOMEN: Soft. Bowel sounds present. No organomegaly. EXTREMITIES: No edema, no cyanosis. NEUROLOGIC: The patient is awake, alert, moving all 4 extremities. No focal deficit. MEDICATIONS: Advair, azithromycin, DuoNeb, heparin, Librium, Pepcid, Solu-Medrol, acetaminophen. LABORATORY DATA: White blood cells 8.1, hemoglobin 9.2, hematocrit 28.3, platelets 341. Sodium 138, potassium 4.2, BUN 26, creatinine 0.9, calcium 8.3, ALT 14, AST 30. ASSESSMENT AND PLAN: The patient is a 61-year-old male with leukopenia, anemia, abnormal liver funct ion test, proteinuria, glucosuria, has history of chronic obstructive pulmonary disease, asthma, hist ory of ethanol abuse, has fall. X-ray of the wrist and elbow done, cannot see any fracture. The pat ient has ataxic giving physical therapy. Tapering dose of steroid and Librium. Continue Advair, alb uterol, heparin, Librium tapering dose, Solu-Medrol. Gastrointestinal and deep venous thrombosis pro phylaxis. Repeat labs. We will follow up. Carlene Mayberry MD cc: [id number] TT: 08/02/2016 06:40:39 Confirmation # [id number] Dictation # [id number] tn
[2016-08-02] MEDS: Fluticasone-Salmeterol 500-50mcg Diskus INH SCH (08:57)
[2016-08-02] MEDS: Azithromycin 500 MG in Sodium Chloride 0.9% 250 ML IVPB SCH (10:43)
[2016-08-02] MEDS: MethylPREDNISolone 40 mg Vial IVP SCH (10:43)
[2016-08-02 15:30] VITALS: BP 145/81; PULSE 84; TEMP 98.3; O2SAT 100
--- NOTE | 2016-08-02 16:53 | CP.PCM.PN ---
Subjective - Date & Time of Evaluation Date of Evaluation: 08/02/16 Time of Evaluation: 13:30 - Subjective Subjective: Pt seen and examined today, states sob improved, denies any chest pain, sob, OOb with PT , ambulates without sob No tremors noted Objective - Vital Signs/Intake and Output Vital Signs (last 24 hours): Temp Pulse Resp BP Pulse Ox 98.3 F 84 20 145/81 100 08/02/16 15:24 08/02/16 15:24 08/02/16 15:24 08/02/16 15:24 08/02/16 15:24 Intake and Output: 08/02/16 08/02/16 06:59 18:59 Intake Total 480 Output Total 600 Balance -120 - Medications Medications: Current Medications Acetaminophen (Tylenol 325mg Tab) 650 mg PO Q4H PRN PRN Reason: pain fever Albuterol/Ipratropium (Duoneb 3 Mg/0.5 Mg (3 Ml) Ud) 3 ml IH RQ6 [facility] Last Admin: 08/02/16 14:41 Dose: 3 ml Chlordiazepoxide (Librium) 10 mg PO Q8 PRN PRN Reason: anxiety , ethnol withdrawl Famotidine (Pepcid) 40 mg PO DAILY [facility] Last Admin: 08/02/16 10:43 Dose: 40 mg Azithromycin 500 mg/ Sodium (Chloride) 250 mls @ 166.667 mls/hr IVPB DAILY [facility] Last Admin: 08/02/16 10:43 Dose: 166.667 mls/hr Methylprednisolone (Solu-Medrol) 20 mg IVP Q12 [facility] Last Admin: 08/02/16 10:43 Dose: 20 mg Fluticasone/Salmeterol (Advair Diskus 500/50) 1 puff INH RQ12 [facility] Last Admin: 08/02/16 08:57 Dose: 1 puff Tramadol HCl (Ultram) 50 mg PO TID PRN PRN Reason: Pain, moderate (4-7) - Labs Labs: 08/01/16 08:22 08/01/16 08:22 PT 10.8 SECONDS (9.7-12.2) 07/29/16 22:08 INR 1.0 07/29/16 22:08 APTT 27 SECONDS (21-34) 07/29/16 22:08 Assessment and Plan - Assessment and Plan (Free Text) Assessment: A/P 61 YR OLD male admitted for exc. COPD/ ETOH withdrawl sob improved with steroid iv Pt accepted at [facility] for rehab and pt in agreement D/W with Dr. Ramirez, stable for discharge to [facility] today and Dr. Ramirez will follow the patient at [facility]
--- NOTE | 2016-08-03 08:53 | CARD ---
APPROVED REPORT EKG Measurement Heart [id number] <Conclusion> Sinus tachycardia Otherwise normal ECG
--- NOTE | 2016-08-06 17:21 | DS ---
CHIEF COMPLAINT: Shortness of breath, coughing, cannot speak even one sentence. HISTORY OF PRESENT ILLNESS: The patient is a 61-year-old male with a past medical history of asthma, emphysema, came for shortness of breath. Even he cannot complete his sentence. No fever, no chills , no nausea, vomiting, or diarrhea. No hematuria or hematochezia. No swelling of the leg. No chest pain, no palpitation. I admitted the patient, gave Solu-Medrol, antibiotics, tapering dose of Libri um, physical therapy. Got better, transferred to [facility] for continued care and for [facility] sical therapy. PAST MEDICAL HISTORY: Anxiety, asthma, bronchitis, COPD, emphysema, hypertension, and hypercholester olemia. FAMILY HISTORY: Father and mother noncontributory. SOCIAL HISTORY: Smoking yes. Alcohol yes, drinking vodka every day. No substance abuse as per edith ent. ALLERGIES: The patient is not allergic to any medications. HOME MEDICATIONS: Reviewed by me. REVIEW OF SYSTEMS: The patient was seen and examined on the bedside, looks comfortable. No nausea, vomiting, or diarrhea. Cough is better. Shortness of breath is better. Now is able to complete one sentence, but still having tremors, that is why we are taking him to subacute rehabilitation. Denie s chest pain. Ambulates without shortness of breath. PHYSICAL EXAMINATION: VITAL SIGNS: Temperature 98.3, pulse 84, respiratory rate 20, blood pressure 145/81, pulse oximetry 100. HEENT: Head normocephalic, atraumatic. Eyes: PERRLA. Extraocular muscles intact. Conjunctivae pin k. Eyelids unremarkable. Nose patent. Mucous membranes moist. NECK: Supple. No carotid bruit, JVD or thyromegaly. CHEST: Bilaterally symmetrical. HEART: S1, S2 positive. LUNGS: Positive wheezing mildly at the bases. ABDOMEN: Soft. Bowel sounds present. No organomegaly. EXTREMITIES: No edema, no cyanosis. NEUROLOGIC: The patient is awake, alert, moving all 4 extremities. No focal deficits. MEDICATIONS: Tylenol, DuoNeb, Librium tapering dose, Pepcid, azithromycin, Solu-Medrol tapering dose , Tramadol. LABORATORY DATA: White blood cells 8.1, hemoglobin 9.2, hematocrit 28.2, platelets 341. Sodium 138, potassium 4.2, BUN 23, creatinine 0.9, glucose 92. ASSESSMENT AND PLAN: The patient is a 61-year-old male with anemia with high BUN, dehydration, came with exacerbation of chronic obstructive pulmonary disease, asthma with ethanol withdrawal, given Nancy rium and got better. Shortness of breath improved with IV steroid tapering dose. The patient was ac cepted to [place] for rehabilitation and patient agreed. Discussion done with nurse practitioner, Ann WELLS. So, discharge patient to ____ will follow up with Dr. Mayberry there. We will cont inue physical therapy and medicine there. The patient has history of hypertension getting under cont rol, abnormal liver function test is getting under control, history of proteinuria glucosuria, histor y of ethanol abuse. Urged to quit smoking and urged to quit drinking. The patient is ataxic, got ph ysical therapy. We will follow up in [place]. Carlene Mayberry MD cc: [id number] TT: 08/06/2016 17:21:00 jn
== END 2016-08-02 20:04 | DRG 191 ==
LOC: C.ER 20:18 → C.5T 07-30 00:10
PROVIDERS: ADMIT Internal Medicine; ATTEND Internal Medicine
DX: J44.1 Chronic obstructive pulmonary disease with (acute) exacerbation (principal); F10.239 Alcohol dependence with withdrawal, unspecified; E83.51 Hypocalcemia; I10 Essential (primary) hypertension; E86.0 Dehydration; W19.XXXA Unspecified fall, initial encounter; F17.210 Nicotine dependence, cigarettes, uncomplicated; E78.00 Pure hypercholesterolemia, unspecified; M19.90 Unspecified osteoarthritis, unspecified site; J45.909 Unspecified asthma, uncomplicated; D64.9 Anemia, unspecified; D72.819 Decreased white blood cell count, unspecified; M25.521 Pain in right elbow; M25.531 Pain in right wrist; R27.0 Ataxia, unspecified; Y90.1 Blood alcohol level of 20-39 mg/100 ml

== ENCOUNTER 2016-09-13 01:25 | Emergency (ER) | payer MEDICARE ==
[2016-09-13 01:25] VITALS: BMI 31.0
--- NOTE | 2016-09-13 01:27 | C.PDOC ---
History Of Present Illness Pt with worsening shortness of breath, for the last 3-4 hours. Received 125 mg solumedrol, 2 nebs. Speaking in complete sentences. No f/c/n/v. Time Seen by Provider: 09/13/16 01:26 History Per: Patient History/Exam Limitations: no limitations Onset/Duration Of Symptoms: Hrs Current Symptoms Are (Timing): Still Present Associated Symptoms: Dyspnea. denies: Fever, Hives, Itching Preciptating Factors: None Severity: Severe Pain Scale Rating Of: 6 Recent travel outside of the [place]: No Additional History Per: EMS - Asthma History Medication Use: Daily Rescue Medications: See Home Medication List Control Medications: See Home Medication List Past Medical History Reviewed: Historical Data, Nursing Documentation, Vital Signs Vital Signs: Last Vital Signs Temp 98.7 F 09/13/16 01:33 Pulse 109 H 09/13/16 01:33 Resp 19 09/13/16 02:56 BP 129/82 09/13/16 01:33 Pulse Ox 98 09/13/16 02:56 - Medical History PMH: Anxiety, Asthma, Bronchitis, COPD, Emphysema, HTN, Hypercholesterolemia Denies: Diabetes, Hepatitis, HIV, Chronic Kidney Disease, Seizures, Sexually Transmitted Disease - [facility] Procedures ALCOHOL DETOXIFICATION (07/16/14) DETOXIFICATION SERVICES FOR SUBSTANCE ABUSE TREATMENT (10/01/15) EXCISION OF TOE NAIL, EXTERNAL APPROACH (02/12/15) FLUOROSCOPY OF SUPERIOR VENA CAVA, GUIDANCE (02/21/15) HOME MANAGEMENT TREATMENT (02/12/15) INFLUENZA VACCINATION (12/19/14) INJECT/INFUSE NEC (02/12/14) INSERTION OF INFUSION DEV INTO SUP VENA CAVA, PERC APPROACH (09/09/15) INTRODUCE OF OTH THERAP SUBST INTO RESP TRACT, VIA OPENING (02/12/15) INTRODUCTION OF ANTI-INFLAM INTO RESP TRACT, VIA OPENING (08/27/15) MEDS MGMT FOR SUBSTANCE ABUSE TREATMENT, OTH REPL MED (01/11/16) NEBULIZER THERAPY (12/19/14) OXYGEN ENRICHMENT NEC (09/25/13) THERAPEUTIC EXERCISE TREATMENT OF MUSCULOSK WHOLE (02/12/15) ULTRASONOGRAPHY OF SUPERIOR VENA CAVA, GUIDANCE (02/21/15) VACCINATION NEC (09/25/13) Family History: States: No Known Family Hx - Social History Hx Tobacco Use: Yes Hx Alcohol Use: Yes (Vodka) Hx Substance Use: Yes (Alcohol) - Immunization History Hx Tetanus Toxoid Vaccination: Yes Hx Influenza Vaccination: Yes (01/2015) Hx Pneumococcal Vaccination: Yes (2011) Review Of Systems Constitutional: Negative for: Fever, Chills Eyes: Negative for: Vision Change ENT: Negative for: Throat Pain Cardiovascular: Negative for: Chest Pain, Palpitations Respiratory: Positive for: Cough, Shortness of Breath, Wheezing Gastrointestinal: Negative for: Nausea, Vomiting, Abdominal Pain Genitourinary: Negative for: Dysuria Musculoskeletal: Negative for: Back Pain Skin: Negative for: Rash, Lesions, Jaundice, Bruising Neurological: Negative for: Weakness Psych: Negative for: Anxiety Physical Exam - Physical Exam Appears: Non-toxic Skin: Warm, Dry Head: Normacephalic Eye(s): bilateral: Normal Inspection Oral Mucosa: Moist Neck: Supple Chest: Symmetrical Cardiovascular: Rhythm Regular Respiratory: Decreased Breath Sounds, No Rales, Rhonchi, Wheezing Gastrointestinal/Abdominal: Soft, No Tenderness, No Distention Back: No CVA Tenderness Extremity: Normal ROM Extremity: Bilateral: Atraumatic Neurological/Psych: Oriented x3, Normal Speech, Normal Cognition Gait: Steady ED Course And Treatment - Laboratory Results Result Diagrams: 09/13/16 02:12 09/13/16 02:12 ECG: Interpreted By Me, Viewed By Me ECG Rhythm: Sinus Rhythm (107), Nonspecific Changes (occ pvc's) O2 Sat by Pulse Oximetry: 98 Pulse Ox Interpretation: Normal - Radiology CXR: Interpreted by Me, Viewed By Me CXR Interpretation: No: Infiltrates, Fracture, Pnemothorax Progress Note: blood work, cxr, nebs Reevaluation Time: 05:51 Reassessment Condition: Improved Critical Care Time - Critical Care Note Total Time (in mins): 30 Documented critical care: time excludes all time spent performing seperately billable procedures. Disposition Counseled Patient/Family Regarding: Studies Performed, Diagnosis, Need For Followup, Rx Given - Disposition Referrals: Shaik Huitron MD [Staff Provider] - Disposition: HOME/ ROUTINE Disposition Time: 01:27 Condition: FAIR Prescriptions: Prednisone [Deltasone] 20 mg PO DAILY #5 tablet Instructions: Asthma (DC) - Clinical Impression Clinical Impression: Exacerbation of asthma
[2016-09-13] MEDS: Albuterol-Ipratrop 3 mg / 0.5 (3 ml) UD IH SCH ×3 (01:45→02:15)
[2016-09-13] MEDS ORDERED: Albuterol-Ipratrop 3 mg / 0.5 (3 ml) UD ONE ×3 (01:54→01:55)
[2016-09-13 02:15] LABS: BASO # 0.1 K/uL (0.0-0.2); BASO % 0.7 % (0.0-2.0); EOS # 0.1 K/uL (0.0-0.7); EOS % 0.9 % (0.0-4.0); HEMATOCRIT 36.4 % (35.0-51.0); LYMPH # 2.3 K/uL (1.0-4.3); LYMPH % 26.5 % (20.0-40.0); MEAN CELL VOLUME 73.5 fL (80.0-94.0); MEAN CORPUSCULAR HGB CONC 31.3 g/dL (33.0-37.0); MEAN PLATELET VOLUME 7.9 fL (7.2-11.7); MONO # 0.5 K/uL (0.0-0.8); MONO % 5.8 % (0.0-10.0); RED CELL DISTRIBUTION WIDTH 19.1 % (11.5-14.5); WHITE BLOOD COUNT 8.8 K/uL (4.8-10.8)
[2016-09-13 02:16] LABS: ABG ALLEN TEST POS; DRAW SITE RR
[2016-09-13 02:24] LABS: INR 0.9
[2016-09-13 02:27] LABS: CHLORIDE 103 mmol/L (98-107)
[2016-09-13 02:28] LABS: POTASSIUM 3.3 mmol/L (3.6-5.2); SODIUM 141 mmol/L (132-148)
[2016-09-13 02:30] LABS: BILIRUBIN,TOTAL 0.6 mg/dL (0.2-1.3); GFR AFRICAN-AMERICAN > 60
[2016-09-13 02:31] LABS: ALB/GLOB RATIO 1.1 (1.0-2.1); ALKALINE PHOSPHATASE 121 U/L (38-126); ALT/SGPT 22 U/L (21-72); AST/SGOT 40 U/L (17-59); BLOOD UREA NITROGEN 15 mg/dL (9-20); CALCIUM 8.6 mg/dl (8.6-10.4); CARBON DIOXIDE 21 mmol/L (22-30); GLUCOSE,RANDOM 104 mg/dL (75-110)
[2016-09-13 02:58] VITALS: O2SAT 98
[2016-09-13 06:09] VITALS: BP 137/83; PULSE 110; RESP 20; TEMP 98.6
--- NOTE | 2016-09-13 14:12 | RAD ---
PROCEDURE: CHEST RADIOGRAPH, 1 VIEW HISTORY: SOB COMPARISON: 07/29/2016 FINDINGS: LUNGS: Clear. PLEURA: No pneumothorax or pleural fluid seen. CARDIOVASCULAR: Normal. OSSEOUS STRUCTURES: No significant abnormalities. VISUALIZED UPPER ABDOMEN: Normal. OTHER FINDINGS: None. IMPRESSION: No active disease.
== END 2016-09-13 06:09 | disposition home or self-care (01) ==
LOC: C.ER 01:25
DX: J45.901 Unspecified asthma with (acute) exacerbation (principal); Z72.0 Tobacco use

== ENCOUNTER 2016-10-12 14:20 | Inpatient (IN) | payer MEDICARE ==
[2016-10-12 14:20] VITALS: BMI 31.0
--- NOTE | 2016-10-12 14:50 | C.PDOC ---
History Of Present Illness 61 y/o male presents to the ED with complaints of syncope [employer]. Pt states he was sitting on the stoop drinking alcohol "and I passed out." Pt states he only had "half my usual" prior to syncope. He also reports "heart racing" and COPD exacerbation, wheezing. Denies associated chest pain, fever, cough, nausea, vomiting or any other complaints. Pt reports history of HTN. No prior history of syncope. SYNCOPE [employer]ER. PS WAS SITTING ON STOOP DRINKING ETOH "AND I JUST PASSED OUT". PS HAD ONLY DRANK "HALF MY USUAL" PRIOR TO SYNCOPE. NO ASSOC CP. +PRIOR HEART RACING". NO PRIOR HO SYNCOPE. ALSO CO COPD EXAC, WHEEZE. NO FEVER, COUGH, NV. PS HO HTN. EXAM MILD DIST NONTOXIC. SBP 99 lungs B/L EXP WHEEZE W RETRACTIONS. SPEAKING FULL SENTENCES CV RRR PSYCH CALM COOPERATIVE MILD INTOX CLEAR SPEECH AND THOUGHT. NEURO INTACT Time Seen by Provider: 10/12/16 14:34 Chief Complaint (Nursing): Substance Abuse History Per: Patient History/Exam Limitations: no limitations Onset/Duration Of Symptoms: Mins Current Symptoms Are (Timing): Gone Activity At Onset Of Symptoms: Sitting Fall Associated With With Symptoms: No Severity: Mild Recent travel outside of the [place]: No Past Medical History Reviewed: Historical Data, Nursing Documentation, Vital Signs Vital Signs: Last Vital Signs Temp 97.9 F 10/12/16 17:38 Pulse 86 10/12/16 17:38 Resp 20 10/12/16 17:38 BP 107/73 10/12/16 17:38 Pulse Ox 96 10/12/16 17:38 - Medical History PMH: Anxiety, Asthma, Bronchitis, COPD, Emphysema, HTN, Hypercholesterolemia - [facility] Procedures ALCOHOL DETOXIFICATION (07/16/14) DETOXIFICATION SERVICES FOR SUBSTANCE ABUSE TREATMENT (10/01/15) EXCISION OF TOE NAIL, EXTERNAL APPROACH (02/12/15) FLUOROSCOPY OF SUPERIOR VENA CAVA, GUIDANCE (02/21/15) HOME MANAGEMENT TREATMENT (02/12/15) INFLUENZA VACCINATION (12/19/14) INJECT/INFUSE NEC (02/12/14) INSERTION OF INFUSION DEV INTO SUP VENA CAVA, PERC APPROACH (09/09/15) INTRODUCE OF OTH THERAP SUBST INTO RESP TRACT, VIA OPENING (02/12/15) INTRODUCTION OF ANTI-INFLAM INTO RESP TRACT, VIA OPENING (08/27/15) MEDS MGMT FOR SUBSTANCE ABUSE TREATMENT, OTH REPL MED (01/11/16) NEBULIZER THERAPY (12/19/14) OXYGEN ENRICHMENT NEC (09/25/13) THERAPEUTIC EXERCISE TREATMENT OF MUSCULOSK WHOLE (02/12/15) ULTRASONOGRAPHY OF SUPERIOR VENA CAVA, GUIDANCE (02/21/15) VACCINATION NEC (09/25/13) Family History: States: Unknown Family Hx - Social History Hx Tobacco Use: Yes Hx Alcohol Use: Yes (Vodka) Hx Substance Use: Yes (Alcohol) - Immunization History Hx Tetanus Toxoid Vaccination: Yes Hx Influenza Vaccination: Yes (01/2015) Hx Pneumococcal Vaccination: Yes (2011) Review Of Systems Except As Marked, All Systems Reviewed And Found Negative. Constitutional: Negative for: Fever Cardiovascular: Negative for: Chest Pain Respiratory: Positive for: Wheezing. Negative for: Cough Gastrointestinal: Negative for: Nausea, Vomiting Neurological: Positive for: Other (syncopal episode) Physical Exam - Physical Exam Appears: Non-toxic, In Acute Distress (mild) Skin: Warm, Dry, No Rash Head: Atraumatic, Normacephalic Nose: Normal, No Epistaxis Neck: Normal, Normal ROM, Supple Chest: Symmetrical Cardiovascular: Rhythm Regular, No Murmur Respiratory: Accessory Muscle Use, No Rales, No Rhonchi, Wheezing (bilateral expiratory wheeze), Other (speaking in full sentences) Extremity: Normal ROM Extremity: Bilateral: Atraumatic Neurological/Psych: Oriented x3, Normal Speech, Normal Cognition, Normal Motor, Normal Sensation, Other (calm, cooperative, mild intoxication, clear speech and thought) ED Course And Treatment - Laboratory Results Result Diagrams: 10/12/16 15:53 10/12/16 15:53 ECG: Interpreted By Me, Viewed By Me ECG Rhythm: Sinus Rhythm Rate From EC (BPM) O2 Sat by Pulse Oximetry: 98 (room air) Pulse Ox Interpretation: Normal Progress - Re-Evaluation Re-evaluation Note: 10/12/16 17:04 PT VERY POOR IV ACCESS. UNABLE TO GET APPROPRIATE IV ACCESS FOR CTA PENDING CALL BACK MED [facility] [employer] 10/12/16 17:26 D/W DR AVELINO STEWARD [employer]GER. CT HEAD PRIOR TO TX FOR POSSIBLE PE 10/12/16 17:35 107/73 PS FEELS BETTER BREATHING IMPROVED. AGREES W ADMISSION 10/12/16 18:21 resident notified - Data Reviewed Data Reviewed: Lab, Diagnostic imaging, EKG, Old records Medical Decision Making Medical Decision Making: Plan: * labs * EKG * CXR * UA * IV fluids * nebulizer treatment Disposition Counseled Patient/Family Regarding: Studies Performed, Diagnosis - Disposition Disposition: HOSPITALIZED Disposition Time: 18:19 Condition: STABLE - POA Present On Arrival: None - Clinical Impression Clinical Impression: COPD with acute exacerbation, Syncope, D-dimer, elevated, Alcohol abuse - Scribe Statement The provider has reviewed the documentation as recorded by the Gia Sanderson Provider Attestation: All medical record entries made by the Gia were at my direction and personally dictated by me. I have reviewed the chart and agree that the record accurately reflects my personal performance of the history, physical exam, medical decision making, and the department course for this patient. I have also personally directed, reviewed, and agree with the discharge instructions and disposition. Decision To Admit - Pt Status Changed To: Hospital Disposition Of: Observation - InPatient: Physician Admission Certification: I certify that this patient requires 2 or more midnights of care for the following reason:: see note - . Bed Request Type: Telemetry Admitting Physician: Gil Mishra Jr. Patient Diagnosis: COPD with acute exacerbation, Syncope, D-dimer, elevated, Alcohol abuse
[2016-10-12] MEDS ORDERED: Sodium Chloride 0.9% 1,000 ML IV ONE (14:55)
[2016-10-12] MEDS ORDERED: MethylPREDNISolone 40 mg Vial IVP STA (14:56)
[2016-10-12] MEDS ORDERED: Sodium Chloride 0.9% 1,000 ML ONE (15:04)
[2016-10-12] MEDS ORDERED: MethylPREDNISolone 40 mg Vial ONE (15:04)
[2016-10-12] MEDS ORDERED: Albuterol-Ipratrop 3 mg / 0.5 (3 ml) UD ONE (15:09)
--- NOTE | 2016-10-12 15:18 | RAD ---
PROCEDURE: CHEST RADIOGRAPH, 1 VIEW HISTORY: syncope, sob COMPARISON: 09/13/2016. FINDINGS: LUNGS: The lungs are well inflated and clear. PLEURA: No pneumothorax or pleural fluid seen. CARDIOVASCULAR: Normal. OSSEOUS STRUCTURES: No significant abnormalities. VISUALIZED UPPER ABDOMEN: Normal. OTHER FINDINGS: None. IMPRESSION: No active pulmonary disease.
[2016-10-12] MEDS: Albuterol-Ipratrop 3 mg / 0.5 (3 ml) UD IH SCH ×3 (15:25→15:45)
[2016-10-12 16:00] LABS: BASO # 0.1 K/uL (0.0-0.2); BASO % 1.1 % (0.0-2.0); EOS # 0.2 K/uL (0.0-0.7); EOS % 2.7 % (0.0-4.0); HEMOGLOBIN 10.1 g/dL (12.0-18.0); LYMPH # 3.2 K/uL (1.0-4.3); LYMPH % 57.2 % (20.0-40.0); MEAN CORPUSCULAR HEMOGLOBIN 24.1 pg (27.0-31.0); MEAN CORPUSCULAR HGB CONC 31.5 g/dL (33.0-37.0); MEAN PLATELET VOLUME 7.6 fL (7.2-11.7); MONO # 0.3 K/uL (0.0-0.8); MONO % 5.4 % (0.0-10.0); NEUT # 1.9 K/uL (1.8-7.0); NEUT % 33.6 % (50.0-75.0); RBC 4.2 Mil/uL (4.40-5.90); RED CELL DISTRIBUTION WIDTH 20.7 % (11.5-14.5); WHITE BLOOD COUNT 5.7 K/uL (4.8-10.8)
[2016-10-12 16:01] LABS: VENOUS BLOOD GAS BASE EXCESS 0.3 mmol/L (0.0-2.0); VENOUS BLOOD GAS PCO2 45 mmHg (40-60); VENOUS BLOOD GAS PO2 50 mm/Hg (30-55); VENOUS BLOOD PH 7.37 (7.32-7.43)
[2016-10-12 16:03] LABS: MEAN CELL VOLUME 76.4 fL (80.0-94.0)
[2016-10-12 16:14] LABS: ALBUMIN 3.3 g/dL (3.5-5.0)
[2016-10-12 16:17] LABS: PROTHROMBIN TIME 11.2 SECONDS (9.7-12.2)
[2016-10-12 16:17] LABS: AST/SGOT 34 U/L (17-59); GFR AFRICAN-AMERICAN > 60; GFR NON-AFRICAN AMERICAN > 60
[2016-10-12 16:18] LABS: ALT/SGPT 20 U/L (21-72); BLOOD UREA NITROGEN 12 mg/dL (9-20); CALCIUM 7.5 mg/dl (8.6-10.4)
[2016-10-12 16:26] LABS: B-TYPE NATRIURETIC PEPTIDE 113 pg/mL (0-900)
[2016-10-12] MEDS ORDERED: Iodixanol 320 MG/ML 100 ML BOTTLE IV ONE (17:23)
[2016-10-12 18:09] LABS: BARBITURATES, UR NEGATIVE (NEGATIVE); BENZODIAZEPINES, UR POSITIVE (NEGATIVE)
[2016-10-12 18:12] LABS: OPIATES, UR NEGATIVE (NEGATIVE)
--- NOTE | 2016-10-12 18:14 | CT ---
PROCEDURE: CT HEAD WITHOUT CONTRAST. HISTORY: SYNCOPE COMPARISON: None available. TECHNIQUE: Axial computed tomography images were obtained through the head/brain without intravenous contrast. Radiation dose: Total exam DLP = 1057.23 mGy-cm. This CT exam was performed using one or more of the following dose reduction techniques: Automated exposure control, adjustment of the mA and/or kV according to patient size, and/or use of iterative reconstruction technique. FINDINGS: HEMORRHAGE: No acute parenchymal, subarachnoid or extra-axial al hemorrhage. BRAIN: No evidence of large acute infarct. There may be some minimal chronic periventricular white matter ischemic changes. . Mild generalized volume loss. VENTRICLES: No obstructive hydrocephalus . Incidental note made of a cavum velum interpositum CALVARIUM: No acute calvarial fractures. PARANASAL SINUSES: Minor mucosal thickening present within both maxillary antra as well as few ethmoid air cells MASTOID AIR CELLS: Unremarkable as visualized. No inflammatory changes. OTHER FINDINGS: None. IMPRESSION: No acute intracranial hemorrhage. Suspect minor chronic periventricular white matter ischemic changes. Mild generalized volume loss.
[2016-10-12 18:24] LABS: PHENCYCLIDINE, UR NEGATIVE (NEGATIVE)
[2016-10-12 18:49] LABS: SQUAMOUS EPITHIAL < 1 /hpf (0-5); URINE BILIRUBIN NEGATIVE (NEGATIVE); URINE BLOOD NEGATIVE (NEGATIVE); URINE CLARITY Clear (Clear); URINE COLOR Yellow (YELLOW); URINE GLUCOSE (UA) NORMAL (Normal); URINE LEUKOCYTE ESTERASE NEG Leu/uL (Negative); URINE NITRATE NEGATIVE (NEGATIVE); URINE PROTEIN NEGATIVE (NEGATIVE); URINE UROBILINOGEN NORMAL mg/dL (0.2-1.0)
--- NOTE | 2016-10-12 19:34 | CP.PCM.HP ---
History of Present Illness - History of Present Illness History of Present Illness: Medicine Note CC: syncope HPI: 61M with PMHx of HTN, HLD, COPD, ETOH Abuse, Tobacco Abuse presents to the ED after a syncopal episode. Patient reports drinking on the stoop earlier today with friends. He recalls passing out, but does not remember the events afterwards. He was told by friends that he landed flat on his back and it appeared that he hit his head. Denied any urinary or bowel incontinence, and tremors or convulsions prior. This has never happened to him before. Patient ambulates with a walker at all times. Denies any history of falls, trauma, weakness, or changes in gait. Denied fever, chills, headache, chest pain, SOB, abdominal pain, n/v/d/c, or urinary symptoms. PMHx: HTN, HLD, COPD, ETOH Abuse, Tobacco Abuse PSHx: Denied Meds: Takes 3 medications but does not recall the names or dosages All: NKDA SHx: Admitted to [address] [place] [address] of [facility], 2-3 times a week for the past 40 years, smokes 1-3 cigarettes per day for the past 40 years, and denied any illicit drug use FHx: Unremarkable PMD: Dr. Eller Present on Admission - Present on Admission Any Indicators Present on Admission: No Review of Systems - Constitutional Constitutional: absent: Headache - EENT Eyes: absent: Change in Vision Ears: absent: Tinnitus Nose/Mouth/Throat: absent: Dysphagia - Cardiovascular Cardiovascular: absent: Chest Pain, Chest Pain at Rest - Respiratory Respiratory: absent: Cough, Dyspnea, Dyspnea on Exertion - Gastrointestinal Gastrointestinal: absent: Abdominal Pain, Change in Bowel Habits - Genitourinary Genitourinary: absent: Dysuria, Hematuria - Musculoskeletal Musculoskeletal: absent: Back Pain - Integumentary Integumentary: absent: Skin Pain, Wounds - Neurological Neurological: Syncope. absent: Abnormal Gait, Abnormal Speech, Confusion, Dizziness, Numbness, Focal Weakness, Headaches, Tremor, Weakness - Psychiatric Psychiatric: absent: Anxiety - Hematologic/Lymphatic Hematologic: absent: Easy Bleeding, Easy Bruising Past Patient History - Infectious Disease Hx of Infectious Diseases: None - Past Medical History & Family History Past Medical History?: Yes - Past Social History Smoking Status: Light Smoker < 10 Cigarettes Daily - CARDIAC Hx Hypercholesterolemia: Yes Hx Hypertension: Yes - PULMONARY Hx Asthma: Yes Hx Bronchitis: Yes Hx Chronic Obstructive Pulmonary Disease (COPD): Yes Hx Emphysema: Yes - NEUROLOGICAL Hx Seizures: No - HEENT Hx HEENT Problems: No - RENAL Hx Chronic Kidney Disease: No - ENDOCRINE/METABOLIC Hx Endocrine Disorders: No - HEMATOLOGICAL/ONCOLOGICAL Hx Human Immunodeficiency Virus (HIV): No - INTEGUMENTARY Hx Dermatological Problems: No - MUSCULOSKELETAL/RHEUMATOLOGICAL Hx Falls: Yes (last fall was last week) - GASTROINTESTINAL Hx Gastrointestinal Disorders: No - GENITOURINARY/GYNECOLOGICAL Hx Sexually Transmitted Disorders: No - PSYCHIATRIC Hx Anxiety: Yes Hx Substance Use: Yes (Alcohol) - SURGICAL HISTORY Hx Surgeries: No - ANESTHESIA Hx Anesthesia: No Hx Anesthesia Reactions: No Hx Malignant Hyperthermia: No Meds Allergies/Adverse Reactions: Allergies Allergy/AdvReac Type Severity Reaction Status Date / Time No Known Allergies Allergy Verified 10/05/16 09:36 Physical Exam - Constitutional Appears: No Acute Distress - Head Exam Head Exam: NORMAL INSPECTION, NORMOCEPHALIC - Eye Exam Eye Exam: EOMI, Normal appearance, PERRL Pupil Exam: NORMAL ACCOMODATION - ENT Exam ENT Exam: Mucous Membranes Moist, Normal Exam - Neck Exam Neck exam: Positive for: Normal Inspection - Respiratory Exam Respiratory Exam: Wheezes (BL lower lung bases ), NORMAL BREATHING PATTERN - Cardiovascular Exam Cardiovascular Exam: REGULAR RHYTHM, RRR, +S1, +S2 - GI/Abdominal Exam GI & Abdominal Exam: Normal Bowel Sounds, Soft. absent: Distended, Tenderness - Extremities Exam Extremities exam: Positive for: normal inspection, pedal pulses present. Negative for: pedal edema, tenderness - Neurological Exam Neurological exam: Alert, CN II-XII Intact, Oriented x3 - Skin Skin Exam: Dry, Intact, Normal Color, Warm Results - Vital Signs Recent Vital Signs: Last Vital Signs Temp 97.9 F 10/12/16 17:38 Pulse 86 10/12/16 17:38 Resp 20 10/12/16 17:38 BP 107/73 10/12/16 17:38 Pulse Ox 98 10/12/16 18:21 - Labs Result Diagrams: 10/12/16 15:53 10/12/16 15:53 Assessment & Plan - Assessment and Plan (Free Text) Assessment: 61M with PMHx of HTN, HLD, COPD, ETOH Abuse, Tobacco Abuse presents to the ED after a syncopal episode. Plan: Syncope * Head CT: negative * EKG: NSR @89 * F/U ECHO, Carotid dopplers, labs Elevated D-Dimer * 270 * CTA unable to be done due to poor IV access * Continue to monitor the patient clinically Hypokalemia * 3.3 * Kdur given * Check AM labs Hx HTN * BP in the ED: 107/73 * Monitor Hx HLD * F/U lipid Panel ETOH Abuse Disorder * Serum Alcohol: 341 * Ativan PRN * Thiamine, Folic Acid, and MV dailly * NS @ 100cc/hr Prophylactic Measures * GI PPX: Protonix 40mg PO daily * DVT PPX: Heparin 5000 SC Q12, SCDs * Heart Healthy Diet * Fall Precautions DW Sherita Vivas DO, PGY-1
[2016-10-12] MEDS: Albuterol-Ipratrop 3 mg / 0.5 (3 ml) UD INH SCH (20:00)
[2016-10-12] MEDS: Sodium Chloride 0.9% 1,000 ML IV SCH (21:43)
[2016-10-13] MEDS: Albuterol-Ipratrop 3 mg / 0.5 (3 ml) UD INH SCH ×4 (02:29→19:35)
[2016-10-13] MEDS: Sodium Chloride 0.9% 1,000 ML IV SCH ×2 (05:45→15:45)
[2016-10-13 08:15] LABS: ALBUMIN 3.2 g/dL (3.5-5.0)
[2016-10-13] MEDS: Fluticasone-Salmeterol 500-50mcg Diskus INH SCH ×2 (08:15→19:34)
[2016-10-13 08:17] LABS: ALB/GLOB RATIO 1.1 (1.0-2.1); ALT/SGPT 17 U/L (21-72); AST/SGOT 20 U/L (17-59); BLOOD UREA NITROGEN 18 mg/dL (9-20); GFR AFRICAN-AMERICAN > 60; GFR NON-AFRICAN AMERICAN > 60
[2016-10-13 08:18] LABS: MAGNESIUM 1.8 mg/dL (1.6-2.3)
[2016-10-13 08:31] LABS: LDL CHOLESTEROL 69 mg/dL (0-129)
[2016-10-13 08:56] LABS: HDL CHOLESTEROL 143 mg/dL (30-70)
[2016-10-13 09:34] LABS: FOLATE 3.9 ng/mL
[2016-10-13] MEDS ORDERED: MethylPREDNISolone 40 mg Vial IVP SCH ×2 (10:00)
--- NOTE | 2016-10-13 10:26 | VASCLAB ---
PROCEDURE: Lower Extremity Venous Duplex Exam. HISTORY: SYNCOPE, SOB PRIORS: None. TECHNIQUE: Bilateral common femoral, femoral, popliteal and posterior tibial, peroneal and great saphenous veins were evaluated. Flow was assessed with color Doppler, compressibility, assessment of phasic flow and augmentation response. Report prepared by Rainer Douglas, KARLEY, RVT FINDINGS: RIGHT: 1. Common Femoral Vein: 1.1. Compressibility - Fully compressible: Thrombus - None : Flow - Phasic: Augmentation -Normal: Reflux - None. 2. Femoral Vein: 2.1. Compressibility - Fully compressible: Thrombus - None : Flow - Phasic: Augmentation -Normal: Reflux - None. 3. Popliteal Vein: 3.1. Compressibility - Fully compressible: Thrombus - None : Flow - Phasic: Augmentation -Normal: Reflux - None. 4. Posterior Tibial Vein: 4.1. Compressibility - Fully compressible: Thrombus - None: Flow - Phasic: Augmentation -Normal: Reflux - None. 5. Peroneal Vein: 5.1. Compressibility - Fully compressible: Thrombus - None: Flow - Phasic: Augmentation -Normal: Reflux - None. 6. Great Saphenous Vein: 6.1. Compressibility - Fully compressible: Thrombus - None: Flow - Phasic: Augmentation - Normal: Reflux - None. LEFT: 1. Common Femoral Vein: 1.1. Compressibility - Fully compressible: Thrombus - None: Flow - Phasic: Augmentation -Normal: Reflux - None. 2. Femoral Vein: 2.1. Compressibility - Fully compressible: Thrombus - None: Flow - Phasic: Augmentation -Normal: Reflux - None. 3. Popliteal Vein: 3.1. Compressibility - Fully compressible: Thrombus - None : Flow - Phasic: Augmentation -Normal: Reflux - None. 4. Posterior Tibial Vein: 4.1. Compressibility - Fully compressible: Thrombus - None: Flow - Phasic: Augmentation -Normal: Reflux - None. 5. Peroneal Vein: 5.1. Compressibility - Fully compressible: Thrombus - None: Flow - Phasic: Augmentation -Normal: Reflux - None. 6. Great Saphenous Vein: 6.1. Compressibility - Fully compressible: Thrombus - None: Flow - Phasic: Augmentation - Normal: Reflux - None. OTHER FINDINGS: Right: None significant. Left: None significant. IMPRESSION: Right: No evidence of deep or superficial vein thrombosis of the right lower extremity. Normal valve function noted of the right side. Left: No evidence of deep or superficial vein thrombosis of the left lower extremity. Normal valve function noted of the left side.
[2016-10-13] MEDS: Pantoprazole 40 mg EC Tab PO SCH (10:59)
[2016-10-13] MEDS: Multiple Vitamins Tab PO SCH (10:59)
[2016-10-13] MEDS: Enoxaparin 40 mg Syringe SC SCH (10:59)
[2016-10-13 11:58] LABS: HEMOGLOBIN 9.5 g/dL (12.0-18.0); MEAN CELL VOLUME 76.4 fL (80.0-94.0); MEAN CORPUSCULAR HEMOGLOBIN 24.3 pg (27.0-31.0); MEAN CORPUSCULAR HGB CONC 31.8 g/dL (33.0-37.0); MEAN PLATELET VOLUME 8.4 fL (7.2-11.7); PLATELET COUNT 265 K/uL (130-400); RBC 3.91 Mil/uL (4.40-5.90); RED CELL DISTRIBUTION WIDTH 20.3 % (11.5-14.5); WHITE BLOOD COUNT 9.8 K/uL (4.8-10.8)
[2016-10-13 12:23] LABS: LYMPH # 0.8 K/uL (1.0-4.3); MONO # 0.2 K/uL (0.0-0.8); NEUT # 8.8 K/uL (1.8-7.0)
[2016-10-13 12:25] LABS: LYMPHOCYTE 7 % (20-40); MONOCYTE 4 % (0-10); NEUTROPHIL 89 % (50-75); PLATELET ESTIMATE NORMAL (NORMAL); TOTAL CELLS COUNTED 100
[2016-10-13 12:26] LABS: ANISOCYTOSIS SLIGHT; HYPOCHROMIC SLIGHT; OVALOCYTES SLIGHT; POLYCHROMIC SLIGHT
--- NOTE | 2016-10-13 14:28 | VASCLAB ---
PROCEDURE: HISTORY: syncope COMPARISON: None available. TECHNIQUE: Grayscale and duplex Doppler evaluation of the cervical carotid and vertebral arteries were performed. The common carotid, carotid bifurcations and cervical Internal Carotid Artery (ICA) and proximal External Carotid Artery (ECA) were evaluated. The vertebral arteries were evaluated for gross patency and flow direction. Report prepared by Rainer Douglas, BS, RVT FINDINGS: RIGHT CAROTID ARTERIES: 1. Common Carotid Artery: No significant focal plaque formation of the right common carotid artery. Maximum Peak Systolic velocity: 71 cm/sec: End-diastolic velocity 11 cm/sec. 2. Carotid Bifurcation: plaque formation. Maximum Peak Systolic velocity: 57 cm/sec: End-diastolic velocity 11 cm/sec. 3. Internal Carotid Artery: Plaque description: 3.1. Proximal Segment: Peak systolic velocity 89 cm/sec: End-diastolic velocity 21 cm/sec - % stenosis 0-15% 3.2. Middle Segment: Peak systolic velocity 78 cm/sec: End-diastolic velocity 25 cm/sec - % stenosis 0-15% 3.3. Distal Segment: Peak systolic velocity 86 cm/sec: End-diastolic velocity 25 cm/sec - % stenosis 0-15% 4. External Carotid Artery: No significant focal plaque formation. Peak systolic velocity 118 cm/sec 5. ICA/CCA Ratio: 1.3 LEFT CAROTID ARTERIES: 1. Common Carotid Artery: No significant focal plaque formation of the left common carotid artery. Maximum Peak Systolic velocity: 85 cm/sec: End-diastolic velocity 9 cm/sec. 2. Carotid Bifurcation: plaque formation. Maximum Peak Systolic velocity: 70 cm/sec: End-diastolic velocity 7 cm/sec. 3. Internal Carotid Artery: Plaque description: 3.1. Proximal Segment: Peak systolic velocity 129 cm/sec: End-diastolic velocity 22 cm/sec - % stenosis 0-15% 3.2. Middle Segment: Peak systolic velocity 66 cm/sec: End-diastolic velocity 21 cm/sec - % stenosis 0-15% 3.3. Distal Segment: Peak systolic velocity 134 cm/sec: End-diastolic velocity 30 cm/sec - % stenosis 0-15% 4. External Carotid Artery: No significant focal plaque formation. Peak systolic velocity 93 cm/sec 5. ICA/CCA Ratio: 1.6 VERTEBRAL ARTERIES: 1. Right Vertebral Artery: The right vertebral artery flow direction is antegrade. 2. Left Vertebral Artery: The left vertebral artery flow direction is antegrade. OTHER FINDINGS: 1. Right Brachial Blood pressure: 172 mmHg. 2. Left Brachial Blood pressure: 170 mmHg. IMPRESSION: RIGHT: Duplex scan does not suggest hemodynamically significant stenosis of the right extracranial carotid arteries. LEFT: Duplex scan does not suggest hemodynamically significant stenosis of the left extracranial carotid arteries.
--- NOTE | 2016-10-13 18:08 | CP.PCM.PN ---
<Deana Wang - Last Filed: 10/13/16 18:06> Subjective - Date & Time of Evaluation Date of Evaluation: 10/13/16 Time of Evaluation: 07:00 - Subjective Subjective: PGY1-Medicine Note-Dr. Mishra's Service Patient seen and examined at bedside and in no acute distress. Patient says his breathing is better than yesterday but he still feels some shortness of breath. Patient denies chest pain, palpitations, nausea, vomiting, abdominal pain, constipation, diarrhea. Patient has mild tremor in hands bilaterally. Patient has extremely poor IV access. Objective - Vital Signs/Intake and Output Vital Signs (last 24 hours): Temp Pulse Resp BP Pulse Ox 98.5 F 78 20 156/81 H 99 10/13/16 15:20 10/13/16 16:26 10/13/16 15:20 10/13/16 15:20 10/13/16 15:20 Intake and Output: 10/13/16 10/13/16 06:59 18:59 Intake Total 1000 450 Output Total 950 700 Balance 50 -250 - Medications Medications: Current Medications Albuterol/Ipratropium (Duoneb 3 Mg/0.5 Mg (3 Ml) Ud) 3 ml INH RQ4 [facility] Amlodipine Besylate (Norvasc) 5 mg PO DAILY [facility] Enoxaparin Sodium (Lovenox) 40 mg SC DAILY [facility] Last Admin: 10/13/16 10:59 Dose: 40 mg Folic Acid (Folic Acid) 1 mg PO DAILY [facility] Last Admin: 10/13/16 10:58 Dose: 1 mg Sodium Chloride (Sodium Chloride 0.9%) 1,000 mls @ 100 mls/hr IV .Q10H [facility] Last Admin: 10/13/16 05:45 Dose: Not Given Lorazepam (Ativan) 1 mg IVP Q6H PRN PRN Reason: Anxiety Last Admin: 10/13/16 05:25 Dose: 1 mg Methylprednisolone (Solu-Medrol) 40 mg IVP Q12H [facility] Last Admin: 10/13/16 11:41 Dose: Not Given Multivitamins (Hexavitamin) 1 tab PO DAILY [facility] Last Admin: 10/13/16 10:59 Dose: 1 tab Nicotine (Nicoderm Cq) 1 patch TD DAILY [facility] Last Admin: 10/13/16 10:58 Dose: 1 patch Pantoprazole Sodium (Protonix Ec Tab) 40 mg PO DAILY [facility] Last Admin: 10/13/16 10:59 Dose: 40 mg Fluticasone/Salmeterol (Advair Diskus 500/50) 1 puff INH RQ12 [facility] Last Admin: 10/13/16 08:15 Dose: Not Given Fluticasone/Salmeterol (Advair Diskus 250/50) 1 puff INH RQ12 [facility] Thiamine HCl (Vitamin B1 Tab) 100 mg PO DAILY [facility] Last Admin: 10/13/16 10:58 Dose: 100 mg Tiotropium [place] (Spiriva) 18 mcg INH RQ24 [facility] Tiotropium [place] (Spiriva Inhalation Handihaler Device) 1 inhaler INH ONCE ONE Stop: 10/13/16 18:04 - Labs Labs: 10/13/16 11:36 10/13/16 07:28 PT 11.2 SECONDS (9.7-12.2) 10/12/16 15:54 INR 1.0 10/12/16 15:54 APTT 30 SECONDS (21-34) 10/12/16 15:54 - Constitutional Appears: Non-toxic, No Acute Distress - Eye Exam Eye Exam: EOMI, Normal appearance, PERRL - ENT Exam ENT Exam: Mucous Membranes Moist, Normal Exam - Neck Exam Neck Exam: Full ROM, Normal Inspection. absent: Lymphadenopathy - Respiratory Exam Respiratory Exam: Wheezes, NORMAL BREATHING PATTERN. absent: Respiratory Distress - Cardiovascular Exam Cardiovascular Exam: REGULAR RHYTHM, RRR. absent: Gallop, Rubs, Murmur - GI/Abdominal Exam GI & Abdominal Exam: Soft, Normal Bowel Sounds. absent: Distended, Firm, Guarding, Rigid - Extremities Exam Extremities Exam: Full ROM, Normal Inspection - Back Exam Back Exam: NORMAL INSPECTION. absent: rash noted - Neurological Exam Neurological Exam: Alert, Awake, Oriented x3 - Psychiatric Exam Psychiatric exam: Normal Affect, Normal Mood - Skin Skin Exam: Intact, Normal Color, Warm Assessment and Plan - Assessment and Plan (Free Text) Assessment: COPD Exacerbation * Duoneb treatment q4 * Advair 250/50 BID * Spiriva * Prednisone 40 mg BID * Dr. Burks consulted, help appreciated * pt using 2l nasal canula, 02 sat 100% Syncope * Head CT: negative * EKG: NSR @89 * F/U ECHO, Carotid dopplers-mild dysfunction * vit b12: 299, folate:3.9 vit D:<12.8, tsh:.13 Elevated D-Dimer * 270 * CTA unable to be done due to poor IV access * Continue to monitor the patient clinically Hypokalemia * 3.3 * Kdur given * Check AM labs HTN * Amlodipine 5mg po daily * Monitor Hx HLD * lipids- Cholesterol:220, HDL:143, LDL:69 ETOH Abuse Disorder * Serum Alcohol: 341 * Ativan PRN * Thiamine, Folic Acid, and MV dailly * encourage fluid drinking, poor IV access Prophylactic Measures * GI PPX: Protonix 40mg PO daily * DVT PPX: Heparin 5000 SC Q12, SCDs * Heart Healthy Diet * Fall Precautions <Gil Mishra Jr. - Last Filed: 10/15/16 10:25> Objective - Vital Signs/Intake and Output Vital Signs (last 24 hours): Temp Pulse Resp BP Pulse Ox 98.4 F 54 L 18 149/79 100 10/15/16 07:25 10/15/16 07:25 10/15/16 07:25 10/15/16 07:25 10/15/16 07:25 - Medications Medications: Current Medications Albuterol/Ipratropium (Duoneb 3 Mg/0.5 Mg (3 Ml) Ud) 3 ml INH RQ4 [facility] Last Admin: 10/15/16 08:08 Dose: 3 ml Amlodipine Besylate (Norvasc) 5 mg PO DAILY [facility] Last Admin: 10/14/16 09:06 Dose: 5 mg Enoxaparin Sodium (Lovenox) 40 mg SC DAILY [facility] Last Admin: 10/14/16 09:04 Dose: 40 mg Folic Acid (Folic Acid) 1 mg PO DAILY [facility] Last Admin: 10/14/16 09:04 Dose: 1 mg Lorazepam (Ativan) 1 mg IVP Q6H PRN PRN Reason: Anxiety Last Admin: 10/14/16 00:09 Dose: 1 mg Multivitamins (Hexavitamin) 1 tab PO DAILY [facility] Last Admin: 10/14/16 09:04 Dose: 1 tab Nicotine (Nicoderm Cq) 1 patch TD DAILY [facility] Last Admin: 10/14/16 09:04 Dose: 1 patch Pantoprazole Sodium (Protonix Ec Tab) 40 mg PO DAILY [facility] Last Admin: 10/14/16 09:04 Dose: 40 mg Prednisone (Prednisone Tab) 40 mg PO BID [facility] Last Admin: 10/14/16 18:06 Dose: 40 mg Fluticasone/Salmeterol (Advair Diskus 500/50) 1 puff INH RQ12 [facility] Last Admin: 10/15/16 08:08 Dose: 1 500 Thiamine HCl (Vitamin B1 Tab) 100 mg PO DAILY [facility] Last Admin: 10/14/16 09:04 Dose: 100 mg Tiotropium [place] (Spiriva) 18 mcg INH RQ24 [facility] Last Admin: 10/15/16 08:10 Dose: 18 mcg - Labs Labs: 10/15/16 08:17 10/15/16 08:17 PT 11.2 SECONDS (9.7-12.2) 10/12/16 15:54 INR 1.0 10/12/16 15:54 APTT 30 SECONDS (21-34) 10/12/16 15:54 Attending/Attestation - Attestation I have personally seen and examined this patient.: Yes I have fully participated in the care of the patient.: Yes I have reviewed all pertinent clinical information, including history, physical exam and plan: Yes Notes (Text): 10/15/16 10:25 Agree with resident note and findings
[2016-10-13] MEDS ORDERED: Potassium Chloride 20 mEq ER Tab PO ONE (19:37)
[2016-10-13] MEDS ORDERED: Fluticasone-Salmeterol 250-50mcg Diskus INH SCH (20:00)
--- NOTE | 2016-10-13 22:38 | CARD ---
APPROVED REPORT EXAM: Two-dimensional and M-mode echocardiogram with Doppler and color Doppler. Other Information Quality : GoodRhythm : NSR INDICATION Chest Pain Syncope COPD ALCOHOL ABUSE M-Mode DIMENSIONS RVDd2.26 (2.1-3.2cm)Left Atrium (MM)3.98 (2.5-4.0cm) IVSd1.52 (0.7-1.1cm)Aortic Root2.66 (2.2-3.7cm) LVDd4.80 (4.0-5.6cm)Aortic Cusp Exc.2.11 (1.5-2.0cm) PWd1.37 (0.7-1.1cm)FS (%) 49 % LVDs2.46 (2.0-3.8cm)LVEF (%)80 (>50%) Mitral Valve MV E Suntcobk376.1cm/sMV A Lbfpcrjp65.9cm/sE/A ratio1.3 TDI E/Lateral E'0.0E/Medial E'0.0 Tricuspid Valve TR Peak Nkkpzyzn659xf/sTR Peak Gr.[id number] LEFT VENTRICLE The left ventricle is normal size. There is mild concentric left ventricular hypertrophy. Left ventricle systolic function is normal. The Ejection Fraction is >70%. There is normal LV segmental wall motion. The left ventricular diastolic function is normal. There is no ventricular septal defect visualized. There is no left ventricular aneurysm. RIGHT VENTRICLE The right ventricle is normal size. The right ventricular systolic function is normal. ATRIA The left atrium is moderately dilated. The right atrium size is normal. AORTIC VALVE The aortic valve is mildly sclerotic. The aortic valve is tri-cuspid. No aortic regurgitation is present. There is no aortic valvular stenosis. MITRAL VALVE The mitral valve is normal in structure. There is no evidence of mitral valve prolapse. Mitral regurgitation is trace to mild. TRICUSPID VALVE The tricuspid valve is normal in structure. There is no tricuspid valve regurgitation noted. Right ventricular systolic pressure is estimated at 50-60 mmHg. There is moderate-severe pulmonary hypertension. PULMONIC VALVE The pulmonic valve is not well visualized. There is no pulmonic valvular regurgitation. GREAT VESSELS The IVC is normal in size and collapses >50% with inspiration. PERICARDIAL EFFUSION There is no pericardial effusion. <Conclusion> There is mild concentric left ventricular hypertrophy. Left ventricle systolic function is normal. The Ejection Fraction is >70%. The left ventricular diastolic function is normal. Mitral regurgitation is trace to mild. There is moderate-severe pulmonary hypertension.
--- NOTE | 2016-10-14 00:35 | CARD ---
APPROVED REPORT EKG Measurement Heart [id number] <Conclusion> Normal sinus rhythm Normal ECG
[2016-10-14] MEDS: Albuterol-Ipratrop 3 mg / 0.5 (3 ml) UD INH SCH ×6 (00:47→19:37)
[2016-10-14 07:38] LABS: ALB/GLOB RATIO 1.1 (1.0-2.1); ALBUMIN 3.4 g/dL (3.5-5.0); ALT/SGPT 21 U/L (21-72); AST/SGOT 21 U/L (17-59); BLOOD UREA NITROGEN 13 mg/dL (9-20); CALCIUM 8.3 mg/dl (8.6-10.4); MAGNESIUM 1.6 mg/dL (1.6-2.3)
[2016-10-14 07:40] LABS: GFR AFRICAN-AMERICAN > 60; GFR NON-AFRICAN AMERICAN > 60
[2016-10-14 07:44] LABS: MEAN CELL VOLUME 76.6 fL (80.0-94.0); MEAN CORPUSCULAR HEMOGLOBIN 24.4 pg (27.0-31.0); MEAN CORPUSCULAR HGB CONC 31.9 g/dL (33.0-37.0); MEAN PLATELET VOLUME 8.3 fL (7.2-11.7); RBC 4.07 Mil/uL (4.40-5.90); RED CELL DISTRIBUTION WIDTH 20.6 % (11.5-14.5); WHITE BLOOD COUNT 8.9 K/uL (4.8-10.8)
[2016-10-14] MEDS: Fluticasone-Salmeterol 500-50mcg Diskus INH SCH ×2 (08:03→19:37)
[2016-10-14] MEDS: Tiotropium 18 mcg Cap For Inhalation INH SCH (08:04)
[2016-10-14] MEDS: Pantoprazole 40 mg EC Tab PO SCH (09:04)
[2016-10-14] MEDS: Multiple Vitamins Tab PO SCH (09:04)
[2016-10-14] MEDS: Enoxaparin 40 mg Syringe SC SCH (09:04)
[2016-10-14 10:03] LABS: LYMPH # 1.1 K/uL (1.0-4.3); MONO # 0.3 K/uL (0.0-0.8); NEUT # 7.6 K/uL (1.8-7.0)
--- NOTE | 2016-10-14 10:08 | CP.PCM.PN ---
<Deana Wang - Last Filed: 10/14/16 17:30> Subjective - Date & Time of Evaluation Date of Evaluation: 10/14/16 Time of Evaluation: 08:00 - Subjective Subjective: PGY1- Medicine Note- Dr. Mishra's Service Patient seen and examined at bedside and in no acute distress. Patient complains that he is still short of breath and feels like he cannot get a full breath. Patient denies chest pain, palpitations, abdominal pain, nausea, vomiting, constipation, or diarrhea. Objective - Vital Signs/Intake and Output Vital Signs (last 24 hours): Temp Pulse Resp BP Pulse Ox 98.1 F 61 18 153/87 H 100 10/14/16 07:55 10/14/16 07:55 10/14/16 07:55 10/14/16 07:55 10/14/16 07:55 Intake and Output: 10/14/16 10/14/16 06:59 18:59 Intake Total 320 Output Total 1300 Balance -980 - Medications Medications: Current Medications Albuterol/Ipratropium (Duoneb 3 Mg/0.5 Mg (3 Ml) Ud) 3 ml INH RQ4 [facility] Last Admin: 10/14/16 07:27 Dose: 3 ml Amlodipine Besylate (Norvasc) 5 mg PO DAILY [facility] Last Admin: 10/14/16 09:06 Dose: 5 mg Enoxaparin Sodium (Lovenox) 40 mg SC DAILY [facility] Last Admin: 10/14/16 09:04 Dose: 40 mg Folic Acid (Folic Acid) 1 mg PO DAILY [facility] Last Admin: 10/14/16 09:04 Dose: 1 mg Lorazepam (Ativan) 1 mg IVP Q6H PRN PRN Reason: Anxiety Last Admin: 10/14/16 00:09 Dose: 1 mg Multivitamins (Hexavitamin) 1 tab PO DAILY [facility] Last Admin: 10/14/16 09:04 Dose: 1 tab Nicotine (Nicoderm Cq) 1 patch TD DAILY [facility] Last Admin: 10/14/16 09:04 Dose: 1 patch Pantoprazole Sodium (Protonix Ec Tab) 40 mg PO DAILY [facility] Last Admin: 10/14/16 09:04 Dose: 40 mg Prednisone (Prednisone Tab) 40 mg PO BID [facility] Last Admin: 10/14/16 09:04 Dose: 40 mg Fluticasone/Salmeterol (Advair Diskus 500/50) 1 puff INH RQ12 [facility] Last Admin: 10/14/16 08:03 Dose: Not Given Thiamine HCl (Vitamin B1 Tab) 100 mg PO DAILY [facility] Last Admin: 10/14/16 09:04 Dose: 100 mg Tiotropium [place] (Spiriva) 18 mcg INH RQ24 [facility] Last Admin: 10/14/16 08:04 Dose: Not Given - Labs Labs: 10/14/16 07:05 10/14/16 07:05 PT 11.2 SECONDS (9.7-12.2) 10/12/16 15:54 INR 1.0 10/12/16 15:54 APTT 30 SECONDS (21-34) 10/12/16 15:54 - Constitutional Appears: Non-toxic, No Acute Distress - Head Exam Head Exam: ATRAUMATIC, NORMAL INSPECTION, NORMOCEPHALIC - Eye Exam Eye Exam: EOMI, Normal appearance, PERRL - ENT Exam ENT Exam: Mucous Membranes Moist, Normal Exam - Neck Exam Neck Exam: Full ROM, Normal Inspection. absent: Lymphadenopathy - Respiratory Exam Respiratory Exam: Rales, Wheezes, NORMAL BREATHING PATTERN. absent: Rhonchi, Respiratory Distress, Stridor - Cardiovascular Exam Cardiovascular Exam: REGULAR RHYTHM, RRR. absent: Gallop, Rubs, Murmur - GI/Abdominal Exam GI & Abdominal Exam: Soft, Normal Bowel Sounds. absent: Distended, Guarding, Tenderness - Extremities Exam Extremities Exam: Normal Inspection. absent: Pedal Edema, Tenderness - Back Exam Back Exam: NORMAL INSPECTION - Neurological Exam Neurological Exam: Alert, Awake, Oriented x3 - Psychiatric Exam Psychiatric exam: Normal Affect, Normal Mood - Skin Skin Exam: Normal Color, Warm. absent: Rash Assessment and Plan - Assessment and Plan (Free Text) Assessment: COPD Exacerbation * Duoneb treatment q4 * Advair 250/50 BID * Spiriva * Prednisone 40 mg BID * Dr. Burks consulted, help appreciated * pt using 2l nasal canula, 02 sat 100% Syncope * Head CT: negative * EKG: NSR @89 * F/U ECHO, Carotid dopplers-mild dysfunction * vit b12: 299, folate:3.9 vit D:<12.8, tsh:.13 Elevated D-Dimer * 270 * CTA unable to be done due to poor IV access * Continue to monitor the patient clinically Hypokalemia * 3.3 * Kdur given * Check AM labs HTN * Amlodipine 5mg po daily * Monitor Hx HLD * lipids- Cholesterol:220, HDL:143, LDL:69 ETOH Abuse Disorder * Serum Alcohol: 341 * Ativan PRN * Thiamine, Folic Acid, and MV dailly * encourage fluid drinking, poor IV access Prophylactic Measures * GI PPX: Protonix 40mg PO daily * DVT PPX: Heparin 5000 SC Q12, SCDs * Heart Healthy Diet * Fall Precautions <Gil Mishra Jr. - Last Filed: 10/15/16 10:27> Objective - Vital Signs/Intake and Output Vital Signs (last 24 hours): Temp Pulse Resp BP Pulse Ox 98.4 F 54 L 18 149/79 100 10/15/16 07:25 10/15/16 07:25 10/15/16 07:25 10/15/16 07:25 10/15/16 07:25 - Medications Medications: Current Medications Albuterol/Ipratropium (Duoneb 3 Mg/0.5 Mg (3 Ml) Ud) 3 ml INH RQ4 [facility] Last Admin: 10/15/16 08:08 Dose: 3 ml Amlodipine Besylate (Norvasc) 5 mg PO DAILY [facility] Last Admin: 10/14/16 09:06 Dose: 5 mg Enoxaparin Sodium (Lovenox) 40 mg SC DAILY [facility] Last Admin: 10/14/16 09:04 Dose: 40 mg Folic Acid (Folic Acid) 1 mg PO DAILY [facility] Last Admin: 10/14/16 09:04 Dose: 1 mg Lorazepam (Ativan) 1 mg IVP Q6H PRN PRN Reason: Anxiety Last Admin: 10/14/16 00:09 Dose: 1 mg Multivitamins (Hexavitamin) 1 tab PO DAILY [facility] Last Admin: 10/14/16 09:04 Dose: 1 tab Nicotine (Nicoderm Cq) 1 patch TD DAILY [facility] Last Admin: 10/14/16 09:04 Dose: 1 patch Pantoprazole Sodium (Protonix Ec Tab) 40 mg PO DAILY [facility] Last Admin: 10/14/16 09:04 Dose: 40 mg Prednisone (Prednisone Tab) 40 mg PO BID [facility] Last Admin: 10/14/16 18:06 Dose: 40 mg Fluticasone/Salmeterol (Advair Diskus 500/50) 1 puff INH RQ12 [facility] Last Admin: 10/15/16 08:08 Dose: 1 500 Thiamine HCl (Vitamin B1 Tab) 100 mg PO DAILY [facility] Last Admin: 10/14/16 09:04 Dose: 100 mg Tiotropium [place] (Spiriva) 18 mcg INH RQ24 [facility] Last Admin: 10/15/16 08:10 Dose: 18 mcg - Labs Labs: 10/15/16 08:17 10/15/16 08:17 PT 11.2 SECONDS (9.7-12.2) 10/12/16 15:54 INR 1.0 10/12/16 15:54 APTT 30 SECONDS (21-34) 10/12/16 15:54 Attending/Attestation - Attestation I have personally seen and examined this patient.: Yes I have fully participated in the care of the patient.: Yes I have reviewed all pertinent clinical information, including history, physical exam and plan: Yes Notes (Text): 10/15/16 10:27 Agree with resident note and findings
--- NOTE | 2016-10-14 13:24 | CP.PCM.CON ---
History of Present Illness - History of Present Illness History of Present Illness: reason for consultation: history of COPD and shortness of breatyh 61M with PMHx of HTN, HLD, COPD, Alcohol abuse presented to the ED after a syncopal episode. patient states that he was earlier drinking with friendss. He recalls passing out, but does not remember the events afterwards. also complaining of shortness of breath. Denies cough, denies fever chills PMHx: HTN, HLD, COPD, ETOH Abuse, Tobacco Abuse PSHx: Denied Meds: Takes 3 medications but does not recall the names or dosages All: NKDA SHx: Ad[facility] to [facility], 2-3 times a week for the past 40 years, smokes 1-3 cigarettes per day for the past 40 years, and denied any illicit drug use Review of Systems - Review of Systems All systems: reviewed and no additional remarkable complaints except (shortness of breath and syncope) Past Patient History - Infectious Disease Hx of Infectious Diseases: None - Past Medical History & Family History Past Medical History?: Yes - Past Social History Smoking Status: Light Smoker < 10 Cigarettes Daily - CARDIAC Hx Cardiac Disorders: Yes Hx Hypercholesterolemia: Yes Hx Hypertension: Yes - PULMONARY Hx Respiratory Disorders: Yes Hx Asthma: Yes Hx Bronchitis: Yes Hx Chronic Obstructive Pulmonary Disease (COPD): Yes Hx Emphysema: Yes - NEUROLOGICAL Hx Neurological Disorder: No Hx Seizures: No - HEENT Hx HEENT Problems: No - RENAL Hx Chronic Kidney Disease: No - ENDOCRINE/METABOLIC Hx Endocrine Disorders: No - HEMATOLOGICAL/ONCOLOGICAL Hx Blood Disorders: No Hx Human Immunodeficiency Virus (HIV): No - INTEGUMENTARY Hx Dermatological Problems: No - MUSCULOSKELETAL/RHEUMATOLOGICAL Hx Musculoskeletal Disorders: Yes Hx Falls: Yes (last fall was last week) - GASTROINTESTINAL Hx Gastrointestinal Disorders: No - GENITOURINARY/GYNECOLOGICAL Hx Genitourinary Disorders: No Hx Sexually Transmitted Disorders: No - PSYCHIATRIC Hx Psychophysiologic Disorder: Yes Hx Anxiety: Yes Hx Substance Use: Yes (Alcohol) - SURGICAL HISTORY Hx Surgeries: No - ANESTHESIA Hx Anesthesia: No Hx Anesthesia Reactions: No Hx Malignant Hyperthermia: No Meds Allergies/Adverse Reactions: Allergies Allergy/AdvReac Type Severity Reaction Status Date / Time No Known Allergies Allergy Verified 10/05/16 09:36 - Medications Medications: Current Medications Albuterol/Ipratropium (Duoneb 3 Mg/0.5 Mg (3 Ml) Ud) 3 ml INH RQ4 [facility] Last Admin: 10/14/16 11:27 Dose: 3 ml Amlodipine Besylate (Norvasc) 5 mg PO DAILY [facility] Last Admin: 10/14/16 09:06 Dose: 5 mg Enoxaparin Sodium (Lovenox) 40 mg SC DAILY [facility] Last Admin: 10/14/16 09:04 Dose: 40 mg Folic Acid (Folic Acid) 1 mg PO DAILY [facility] Last Admin: 10/14/16 09:04 Dose: 1 mg Lorazepam (Ativan) 1 mg IVP Q6H PRN PRN Reason: Anxiety Last Admin: 10/14/16 00:09 Dose: 1 mg Multivitamins (Hexavitamin) 1 tab PO DAILY [facility] Last Admin: 10/14/16 09:04 Dose: 1 tab Nicotine (Nicoderm Cq) 1 patch TD DAILY [facility] Last Admin: 10/14/16 09:04 Dose: 1 patch Pantoprazole Sodium (Protonix Ec Tab) 40 mg PO DAILY [facility] Last Admin: 10/14/16 09:04 Dose: 40 mg Prednisone (Prednisone Tab) 40 mg PO BID [facility] Last Admin: 10/14/16 09:04 Dose: 40 mg Fluticasone/Salmeterol (Advair Diskus 500/50) 1 puff INH RQ12 [facility] Last Admin: 10/14/16 08:03 Dose: Not Given Thiamine HCl (Vitamin B1 Tab) 100 mg PO DAILY [facility] Last Admin: 10/14/16 09:04 Dose: 100 mg Tiotropium [place] (Spiriva) 18 mcg INH RQ24 [facility]S [facility] Last Admin: 10/14/16 08:04 Dose: Not Given Physical Exam - Head Exam Head Exam: ATRAUMATIC, NORMOCEPHALIC - Eye Exam Eye Exam: Normal appearance - ENT Exam ENT Exam: Mucous Membranes Moist - Neck Exam Neck exam: Positive for: Normal Inspection - Respiratory Exam Respiratory Exam: Decreased Breath Sounds - Cardiovascular Exam Cardiovascular Exam: REGULAR RHYTHM - GI/Abdominal Exam GI & Abdominal Exam: Normal Bowel Sounds, Soft - Extremities Exam Extremities exam: Positive for: normal inspection Results - Vital Signs Recent Vital Signs: Last Vital Signs Temp 98.1 F 10/14/16 07:55 Pulse 61 10/14/16 07:55 Resp 18 10/14/16 07:55 BP 153/87 H 10/14/16 07:55 Pulse Ox 100 10/14/16 07:55 - Labs Result Diagrams: 10/14/16 07:05 10/14/16 07:05 Labs: Laboratory Results - last 24 hr 10/14/16 10/14/16 07:05 07:05 WBC 8.9 RBC 4.07 L Hgb 10.0 L Hct 31.2 L MCV 76.6 L MCH 24.4 L MCHC 31.9 L RDW 20.6 H Plt Count 235 MPV 8.3 Neut % (Auto) 85.0 H Lymph % (Auto) 12.0 L Hopkins % (Auto) 3.0 Eos % (Auto) 0.0 Baso % (Auto) 0.0 Neut # 7.6 H Lymph # 1.1 [place] # 0.3 Eos # 0.0 Baso # 0.0 Sodium 132 Potassium 4.3 Chloride 102 Carbon Dioxide 24 Anion Gap 10 BUN 13 Creatinine 0.9 Est GFR ( Amer) > 60 Est GFR (Non-Af Amer) > 60 Random Glucose 122 H Calcium 8.3 L Phosphorus 3.5 Magnesium 1.6 Total Bilirubin 0.8 AST 21 ALT 21 D Alkaline Phosphatase 82 Total Protein 6.4 Albumin 3.4 L Globulin 3.1 Albumin/Globulin Ratio 1.1 Assessment & Plan (1) COPD (chronic obstructive pulmonary disease) Status: Acute Comment: continue nebulizer treatment and inhaled steroids. Monitor for delirium tremens. Thiamine, folic acid. nicotine patch (2) Syncope Status: Acute (3) Alcohol dependence Status: Acute
[2016-10-15] MEDS: Albuterol-Ipratrop 3 mg / 0.5 (3 ml) UD INH SCH ×7 (00:40→23:33)
--- NOTE | 2016-10-15 07:55 | CP.PCM.PN ---
Subjective - Date & Time of Evaluation Date of Evaluation: 10/15/16 Time of Evaluation: 09:26 - Subjective Subjective: PGY 2 Medicine Note- Dr. Mishra's service Pt seen and examined in no acute distress. Patient states that he is complying with medications for his COPD. Patient proceeded to tell insurance underwriter sales about the different medications commercially available to treat COPD. Patient states that he has been told to ambulate more with the assistance of another person. He admits to constipation. He denies subjective fevers or chills, dyspnea at rest, chest pain, palpitations, headaches, nausea or vomiting at this time. Objective - Vital Signs/Intake and Output Vital Signs (last 24 hours): Temp Pulse Resp BP Pulse Ox 98.4 F 69 20 128/76 97 10/14/16 23:25 10/14/16 23:25 10/14/16 23:25 10/14/16 23:25 10/14/16 23:25 - Medications Medications: Current Medications Albuterol/Ipratropium (Duoneb 3 Mg/0.5 Mg (3 Ml) Ud) 3 ml INH RQ4 [facility] Last Admin: 10/15/16 04:20 Dose: Not Given Amlodipine Besylate (Norvasc) 5 mg PO DAILY [facility] Last Admin: 10/14/16 09:06 Dose: 5 mg Enoxaparin Sodium (Lovenox) 40 mg SC DAILY [facility] Last Admin: 10/14/16 09:04 Dose: 40 mg Folic Acid (Folic Acid) 1 mg PO DAILY [facility] Last Admin: 10/14/16 09:04 Dose: 1 mg Lorazepam (Ativan) 1 mg IVP Q6H PRN PRN Reason: Anxiety Last Admin: 10/14/16 00:09 Dose: 1 mg Multivitamins (Hexavitamin) 1 tab PO DAILY [facility] Last Admin: 10/14/16 09:04 Dose: 1 tab Nicotine (Nicoderm Cq) 1 patch TD DAILY [facility] Last Admin: 10/14/16 09:04 Dose: 1 patch Pantoprazole Sodium (Protonix Ec Tab) 40 mg PO DAILY [facility] Last Admin: 10/14/16 09:04 Dose: 40 mg Prednisone (Prednisone Tab) 40 mg PO BID [facility] Last Admin: 10/14/16 18:06 Dose: 40 mg Fluticasone/Salmeterol (Advair Diskus 500/50) 1 puff INH RQ12 [facility] Last Admin: 10/14/16 19:37 Dose: Not Given Thiamine HCl (Vitamin B1 Tab) 100 mg PO DAILY [facility] Last Admin: 10/14/16 09:04 Dose: 100 mg Tiotropium [place] (Spiriva) 18 mcg INH RQ24 [facility] Last Admin: 10/14/16 08:04 Dose: Not Given - Labs Labs: 10/14/16 07:05 10/14/16 07:05 PT 11.2 SECONDS (9.7-12.2) 10/12/16 15:54 INR 1.0 10/12/16 15:54 APTT 30 SECONDS (21-34) 10/12/16 15:54 - Constitutional Appears: Non-toxic, No Acute Distress - Head Exam Head Exam: ATRAUMATIC, NORMAL INSPECTION, NORMOCEPHALIC - Eye Exam Eye Exam: EOMI, Normal appearance, PERRL Pupil Exam: NORMAL ACCOMODATION - ENT Exam ENT Exam: Mucous Membranes Moist - Neck Exam Neck Exam: Full ROM - Respiratory Exam Respiratory Exam: Rales, Rhonchi, Wheezes - Cardiovascular Exam Cardiovascular Exam: +S1, +S2 - GI/Abdominal Exam GI & Abdominal Exam: Soft, Normal Bowel Sounds - Extremities Exam Extremities Exam: Full ROM, Normal Capillary Refill - Back Exam Back Exam: Full ROM - Neurological Exam Neurological Exam: Alert, Awake, Oriented x3 - Psychiatric Exam Psychiatric exam: Normal Affect, Normal Mood - Skin Skin Exam: Dry, Warm Assessment and Plan - Assessment and Plan (Free Text) Assessment: COPD Exacerbation * Duoneb treatment q4 * Advair 250/50 BID * Spiriva * Prednisone 40 mg BID * Dr. Burks consulted, help appreciated * pt using 2l nasal canula, 02 sat 100% * Patient ambulated a 1/4 distance of the hospital hallway and maintained an O2 saturation of 100%. 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
[2016-10-15] MEDS: Fluticasone-Salmeterol 500-50mcg Diskus INH SCH ×2 (08:08→19:49)
[2016-10-15] MEDS: Tiotropium 18 mcg Cap For Inhalation INH SCH (08:10)
[2016-10-15 08:48] LABS: BASO % 0.2 % (0.0-2.0); HEMOGLOBIN 10.6 g/dL (12.0-18.0); LYMPH # 2.1 K/uL (1.0-4.3); MEAN CELL VOLUME 75.8 fL (80.0-94.0); MEAN CORPUSCULAR HEMOGLOBIN 23.8 pg (27.0-31.0); MEAN CORPUSCULAR HGB CONC 31.4 g/dL (33.0-37.0); MEAN PLATELET VOLUME 8.5 fL (7.2-11.7); MONO # 0.7 K/uL (0.0-0.8); MONO % 5.9 % (0.0-10.0); NEUT # 9.3 K/uL (1.8-7.0); NEUT % 76.9 % (50.0-75.0); NRBC % 0.1 % (0.0-2.0); RBC 4.45 Mil/uL (4.40-5.90); RED CELL DISTRIBUTION WIDTH 20.2 % (11.5-14.5); WHITE BLOOD COUNT 12.2 K/uL (4.8-10.8)
[2016-10-15 08:55] LABS: ALBUMIN 3.6 g/dL (3.5-5.0)
[2016-10-15 08:58] LABS: ALB/GLOB RATIO 1.2 (1.0-2.1); AST/SGOT 16 U/L (17-59); BLOOD UREA NITROGEN 18 mg/dL (9-20); GFR AFRICAN-AMERICAN > 60; GFR NON-AFRICAN AMERICAN > 60
[2016-10-15 08:59] LABS: ALT/SGPT 19 U/L (21-72); CALCIUM 8.8 mg/dl (8.6-10.4); MAGNESIUM 1.8 mg/dL (1.6-2.3)
[2016-10-15] MEDS: Enoxaparin 40 mg Syringe SC SCH (10:44)
[2016-10-15] MEDS: Multiple Vitamins Tab PO SCH (10:47)
[2016-10-15] MEDS: Pantoprazole 40 mg EC Tab PO SCH (10:47)
[2016-10-16] MEDS: Albuterol-Ipratrop 3 mg / 0.5 (3 ml) UD INH SCH ×6 (03:10→23:41)
[2016-10-16 07:44] LABS: HEMOGLOBIN 10.6 g/dL (12.0-18.0); MEAN CELL VOLUME 76.6 fL (80.0-94.0); MEAN CORPUSCULAR HEMOGLOBIN 23.8 pg (27.0-31.0); MEAN CORPUSCULAR HGB CONC 31.1 g/dL (33.0-37.0); RBC 4.43 Mil/uL (4.40-5.90); RED CELL DISTRIBUTION WIDTH 20.2 % (11.5-14.5); WHITE BLOOD COUNT 12.3 K/uL (4.8-10.8)
[2016-10-16] MEDS: Fluticasone-Salmeterol 500-50mcg Diskus INH SCH ×2 (08:00→19:46)
[2016-10-16] MEDS: Tiotropium 18 mcg Cap For Inhalation INH SCH (08:00)
[2016-10-16 08:10] LABS: ALBUMIN 3.3 g/dL (3.5-5.0)
[2016-10-16 08:13] LABS: ALB/GLOB RATIO 1.1 (1.0-2.1); ALT/SGPT 22 U/L (21-72); AST/SGOT 18 U/L (17-59); BLOOD UREA NITROGEN 24 mg/dL (9-20); GFR AFRICAN-AMERICAN > 60; GFR NON-AFRICAN AMERICAN > 60
[2016-10-16 08:14] LABS: CALCIUM 8.6 mg/dl (8.6-10.4); MAGNESIUM 1.9 mg/dL (1.6-2.3)
--- NOTE | 2016-10-16 08:20 | CP.PCM.PN ---
Subjective - Date & Time of Evaluation Date of Evaluation: 10/16/16 Time of Evaluation: 09:20 - Subjective Subjective: PGY 2 Medicine Note- Dr. Mishra's service Pt seen and examined in no acute distress. Patient would like to shower however does not feel that he would be stable enough without the use of a shower chair and is thus requesting a shower chair. He is attempting to ambulate more. He denies subjective fevers or chills, dyspnea at rest, chest pain, palpitations, headaches, paresthesias, nausea or vomiting at this time. Objective - Vital Signs/Intake and Output Vital Signs (last 24 hours): Temp Pulse Resp BP Pulse Ox 98.2 F 82 20 154/79 H 99 10/16/16 04:48 10/16/16 04:48 10/16/16 04:48 10/16/16 04:48 10/16/16 04:48 Intake and Output: 10/16/16 10/16/16 06:59 18:59 Intake Total 240 Output Total 250 Balance -10 - Medications Medications: Current Medications Albuterol/Ipratropium (Duoneb 3 Mg/0.5 Mg (3 Ml) Ud) 3 ml INH RQ4 [facility] Last Admin: 10/16/16 07:26 Dose: 3 ml Amlodipine Besylate (Norvasc) 5 mg PO DAILY [facility] Last Admin: 10/15/16 10:48 Dose: 5 mg Enoxaparin Sodium (Lovenox) 40 mg SC DAILY [facility] Last Admin: 10/15/16 10:44 Dose: 40 mg Folic Acid (Folic Acid) 1 mg PO DAILY [facility] Last Admin: 10/15/16 10:48 Dose: 1 mg Lorazepam (Ativan) 1 mg IVP Q6H PRN PRN Reason: Anxiety Last Admin: 10/14/16 00:09 Dose: 1 mg Multivitamins (Hexavitamin) 1 tab PO DAILY [facility] Last Admin: 10/15/16 10:47 Dose: 1 tab Nicotine (Nicoderm Cq) 1 patch TD DAILY [facility] Last Admin: 10/15/16 10:45 Dose: 1 patch Pantoprazole Sodium (Protonix Ec Tab) 40 mg PO DAILY [facility] Last Admin: 10/15/16 10:47 Dose: 40 mg Prednisone (Prednisone Tab) 40 mg PO BID [facility] Last Admin: 10/15/16 18:53 Dose: 40 mg Fluticasone/Salmeterol (Advair Diskus 500/50) 1 puff INH RQ12 [facility] Last Admin: 10/15/16 19:49 Dose: Not Given Thiamine HCl (Vitamin B1 Tab) 100 mg PO DAILY [facility] Last Admin: 10/15/16 10:48 Dose: 100 mg Tiotropium [place] (Spiriva) 18 mcg INH RQ24 [facility] Last Admin: 10/15/16 08:10 Dose: 18 mcg - Labs Labs: 10/16/16 07:38 10/16/16 07:38 PT 11.2 SECONDS (9.7-12.2) 10/12/16 15:54 INR 1.0 10/12/16 15:54 APTT 30 SECONDS (21-34) 10/12/16 15:54 - Constitutional Appears: Non-toxic, No Acute Distress - Head Exam Head Exam: ATRAUMATIC, NORMAL INSPECTION, NORMOCEPHALIC - Eye Exam Eye Exam: EOMI, Normal appearance, PERRL Pupil Exam: NORMAL ACCOMODATION, PERRL - ENT Exam ENT Exam: Mucous Membranes Moist - Neck Exam Neck Exam: Full ROM - Respiratory Exam Respiratory Exam: Rales, Wheezes - Cardiovascular Exam Cardiovascular Exam: REGULAR RHYTHM, +S1, +S2 - GI/Abdominal Exam GI & Abdominal Exam: Soft, Normal Bowel Sounds - Extremities Exam Extremities Exam: Full ROM, Normal Capillary Refill - Back Exam Back Exam: Full ROM - Neurological Exam Neurological Exam: Alert, Awake, Oriented x3 - Psychiatric Exam Psychiatric exam: Normal Affect, Normal Mood - Skin Skin Exam: Dry, Intact, Normal Color, Warm Additional comments: onychomycosis of toenails Assessment and Plan - Assessment and Plan (Free Text) Assessment: COPD Exacerbation * Duoneb treatment q4 * Advair 250/50 BID * Spiriva * Prednisone 40 mg BID * Dr. Burks consulted, help appreciated * Pt using 2L nasal canula, 02 sat 100% * Patient ambulated a 1/4 distance of the hospital hallway and maintained an O2 saturation of 100%. 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
[2016-10-16] MEDS: Pantoprazole 40 mg EC Tab PO SCH (10:19)
[2016-10-16] MEDS: Multiple Vitamins Tab PO SCH (10:19)
[2016-10-16] MEDS: Enoxaparin 40 mg Syringe SC SCH (10:19)
[2016-10-16 10:52] LABS: LYMPH # 1.2 K/uL (1.0-4.3); MONO # 1.1 K/uL (0.0-0.8)
--- NOTE | 2016-10-16 17:08 | CP.PCM.PN ---
Subjective - Date & Time of Evaluation Date of Evaluation: 10/16/16 Time of Evaluation: 14:00 - Subjective Subjective: Patient seen and examined Complaining of slight cough and dyspnea on exertion Patient states he is able to walk with support Denies fever chills Objective - Vital Signs/Intake and Output Vital Signs (last 24 hours): Temp Pulse Resp BP Pulse Ox 98.7 F 72 20 115/62 99 10/16/16 15:20 10/16/16 15:20 10/16/16 15:20 10/16/16 15:20 10/16/16 15:20 Intake and Output: 10/16/16 10/16/16 06:59 18:59 Intake Total 240 Output Total 250 Balance -10 - Medications Medications: Current Medications Albuterol/Ipratropium (Duoneb 3 Mg/0.5 Mg (3 Ml) Ud) 3 ml INH RQ4 [facility] Last Admin: 10/16/16 15:56 Dose: 3 ml Amlodipine Besylate (Norvasc) 5 mg PO DAILY [facility] Last Admin: 10/16/16 10:19 Dose: 5 mg Docusate Sodium (Colace) 100 mg PO DAILY [facility] Last Admin: 10/16/16 12:29 Dose: 100 mg Enoxaparin Sodium (Lovenox) 40 mg SC DAILY [facility] Last Admin: 10/16/16 10:19 Dose: 40 mg Folic Acid (Folic Acid) 1 mg PO DAILY [facility] Last Admin: 10/16/16 10:19 Dose: 1 mg Lorazepam (Ativan) 1 mg IVP Q6H PRN PRN Reason: Anxiety Last Admin: 10/14/16 00:09 Dose: 1 mg Multivitamins (Hexavitamin) 1 tab PO DAILY [facility] Last Admin: 10/16/16 10:19 Dose: 1 tab Nicotine (Nicoderm Cq) 1 patch TD DAILY [facility] Last Admin: 10/16/16 10:19 Dose: 1 patch Pantoprazole Sodium (Protonix Ec Tab) 40 mg PO DAILY [facility] Last Admin: 10/16/16 10:19 Dose: 40 mg Prednisone (Prednisone Tab) 40 mg PO BID [facility] Last Admin: 10/16/16 10:19 Dose: 40 mg Fluticasone/Salmeterol (Advair Diskus 500/50) 1 puff INH RQ12 [facility] Last Admin: 10/16/16 08:00 Dose: 1 puff Thiamine HCl (Vitamin B1 Tab) 100 mg PO DAILY [facility] Last Admin: 10/16/16 10:19 Dose: 100 mg Tiotropium [place] (Spiriva) 18 mcg INH RQ24 [facility] Last Admin: 10/16/16 08:00 Dose: 18 mcg - Labs Labs: 10/16/16 07:38 10/16/16 07:38 PT 11.2 SECONDS (9.7-12.2) 10/12/16 15:54 INR 1.0 10/12/16 15:54 APTT 30 SECONDS (21-34) 10/12/16 15:54 - Head Exam Head Exam: ATRAUMATIC, NORMOCEPHALIC - Eye Exam Eye Exam: Normal appearance - ENT Exam ENT Exam: Mucous Membranes Moist - Neck Exam Neck Exam: Normal Inspection - Respiratory Exam Respiratory Exam: Decreased Breath Sounds - Cardiovascular Exam Cardiovascular Exam: REGULAR RHYTHM Assessment and Plan (1) COPD (chronic obstructive pulmonary disease) Assessment & Plan: continue nebuliatment and steroid Status: Acute (2) Syncope Status: Acute (3) Alcohol dependence Status: Acute
[2016-10-17] MEDS: Albuterol-Ipratrop 3 mg / 0.5 (3 ml) UD INH SCH ×4 (03:02→15:22)
--- NOTE | 2016-10-17 07:06 | CP.PCM.PN ---
Subjective - Date & Time of Evaluation Date of Evaluation: 10/17/16 Time of Evaluation: 07:06 - Subjective Subjective: PGY-[address] Mishra Pt seen and examined at bedside. Nursing reports no acute events overnight. He states his breathing is improved since admission, and reports he is able to ambulate "around the nurses station" without becoming SOB. He does report that he is "unsteady" on his feet, and feels wobbly without his walker. He would like to shower today but is still waiting on shower chair. He denies subjective fevers or chills, dyspnea at rest, chest pain, palpitations, headaches, paresthesias, nausea, vomiting, or diarrhea. Objective - Vital Signs/Intake and Output Vital Signs (last 24 hours): Temp Pulse Resp BP Pulse Ox 98.3 F 73 20 111/67 100 10/16/16 23:33 10/16/16 23:33 10/16/16 23:33 10/16/16 23:33 10/16/16 23:33 Intake and Output: 10/17/16 10/17/16 06:59 18:59 Intake Total 750 Output Total 1100 Balance -350 - Medications Medications: Current Medications Albuterol/Ipratropium (Duoneb 3 Mg/0.5 Mg (3 Ml) Ud) 3 ml INH RQ4 [facility] Last Admin: 10/17/16 03:02 Dose: Not Given Amlodipine Besylate (Norvasc) 5 mg PO DAILY [facility] Last Admin: 10/16/16 10:19 Dose: 5 mg Docusate Sodium (Colace) 100 mg PO DAILY [facility] Last Admin: 10/16/16 12:29 Dose: 100 mg Enoxaparin Sodium (Lovenox) 40 mg SC DAILY [facility] Last Admin: 10/16/16 10:19 Dose: 40 mg Folic Acid (Folic Acid) 1 mg PO DAILY [facility] Last Admin: 10/16/16 10:19 Dose: 1 mg Lorazepam (Ativan) 1 mg IVP Q6H PRN PRN Reason: Anxiety Last Admin: 10/14/16 00:09 Dose: 1 mg Multivitamins (Hexavitamin) 1 tab PO DAILY [facility] Last Admin: 10/16/16 10:19 Dose: 1 tab Nicotine (Nicoderm Cq) 1 patch TD DAILY [facility] Last Admin: 10/16/16 10:19 Dose: 1 patch Pantoprazole Sodium (Protonix Ec Tab) 40 mg PO DAILY [facility] Last Admin: 10/16/16 10:19 Dose: 40 mg Prednisone (Prednisone Tab) 40 mg PO BID [facility] Last Admin: 10/16/16 18:11 Dose: 40 mg Fluticasone/Salmeterol (Advair Diskus 500/50) 1 puff INH RQ12 [facility] Last Admin: 10/16/16 19:46 Dose: 1 puff Thiamine HCl (Vitamin B1 Tab) 100 mg PO DAILY [facility] Last Admin: 10/16/16 10:19 Dose: 100 mg Tiotropium [place] (Spiriva) 18 mcg INH RQ24 [facility] Last Admin: 10/16/16 08:00 Dose: 18 mcg - Labs Labs: 10/16/16 07:38 10/16/16 07:38 PT 11.2 SECONDS (9.7-12.2) 10/12/16 15:54 INR 1.0 10/12/16 15:54 APTT 30 SECONDS (21-34) 10/12/16 15:54 - Constitutional Appears: Non-toxic, No Acute Distress - Head Exam Head Exam: ATRAUMATIC, NORMOCEPHALIC - Eye Exam Eye Exam: EOMI Pupil Exam: PERRL - ENT Exam ENT Exam: Mucous Membranes Moist - Respiratory Exam Respiratory Exam: Wheezes, NORMAL BREATHING PATTERN. absent: Accessory Muscle Use, Clear to Ausculation Bilateral - Cardiovascular Exam Cardiovascular Exam: REGULAR RHYTHM, +S1, +S2 - GI/Abdominal Exam GI & Abdominal Exam: Soft, Normal Bowel Sounds. absent: Tenderness - Extremities Exam Extremities Exam: Normal Inspection. absent: Pedal Edema, Tenderness - Neurological Exam Neurological Exam: Alert, Awake, Oriented x3 - Psychiatric Exam Psychiatric exam: Normal Affect, Normal Mood - Skin Skin Exam: Normal Color, Warm - Additional Findings Additional findings: - Constitutional Appears: Non-toxic, No Acute Distress - Head Exam Head Exam: ATRAUMATIC, NORMAL INSPECTION, NORMOCEPHALIC - Eye Exam Eye Exam: EOMI, Normal appearance, PERRL Pupil Exam: NORMAL ACCOMODATION, PERRL - ENT Exam ENT Exam: Mucous Membranes Moist - Neck Exam Neck Exam: Full ROM - Respiratory Exam Respiratory Exam: Rales, Wheezes - Cardiovascular Exam Cardiovascular Exam: REGULAR RHYTHM, +S1, +S2 - GI/Abdominal Exam GI & Abdominal Exam: Soft, Normal Bowel Sounds - Extremities Exam Extremities Exam: Full ROM, Normal Capillary Refill - Back Exam Back Exam: Full ROM - Neurological Exam Neurological Exam: Alert, Awake, Oriented x3 - Psychiatric Exam Psychiatric exam: Normal Affect, Normal Mood - Skin Skin Exam: Dry, Intact, Normal Color, Warm Additional comments: onychomycosis of toenails Assessment and Plan - Assessment and Plan (Free Text) Plan: COPD Exacerbation * Duoneb treatment q4 * Advair 250/50 BID * Spiriva * Prednisone 40 mg BID * Dr. Burks consulted, help appreciated * Pt using 2L nasal canula, 02 sat 100% * Pt on 2L home oxygen * Patient ambulated around nursing station and maintained an O2 saturation of 100%. Syncope * Head CT: negative * EKG: NSR @ 89 * ECHO (10/12/16): EF 70%, mild LVH, mod-severe pulm HTN * Carotid dopplers- No significant stenosis * vit b12: 299, folate:3.9 vit D:<12.8, tsh:.13 * Gait instability- F/U PT recommendations Elevated D-Dimer * 270 * CTA unable to be done due to poor IV access * Continue to monitor the patient clinically * Venous dopplers are negative bilaterally HTN * Amlodipine 5mg po daily * Monitor Hx HLD * lipids- Cholesterol:220, HDL:143, LDL:69 * Info Specialist on diet and exercise Vitamin D Deficiency * vit D:<12.8 * Start ergocalciferol 50,000 units Q7D ETOH Abuse Disorder * Serum Alcohol: 341 * Ativan PRN * Thiamine, Folic Acid, and MV dailly * Encourage increased water intake * Counseled on alcohol cessation Prophylactic Measures * GI PPX: Protonix 40mg PO daily * DVT PPX: Lovenox 40 mg SC daily * Heart Healthy Diet * Fall Precautions
[2016-10-17] MEDS: Fluticasone-Salmeterol 500-50mcg Diskus INH SCH (07:30)
[2016-10-17] MEDS: Tiotropium 18 mcg Cap For Inhalation INH SCH (07:30)
[2016-10-17 07:36] LABS: GFR AFRICAN-AMERICAN > 60; GFR NON-AFRICAN AMERICAN > 60
[2016-10-17 07:37] LABS: ALT/SGPT 23 U/L (21-72); AST/SGOT 14 U/L (17-59); BLOOD UREA NITROGEN 27 mg/dL (9-20); CALCIUM 8.3 mg/dl (8.6-10.4)
[2016-10-17 07:38] LABS: ALB/GLOB RATIO 1.1 (1.0-2.1)
[2016-10-17 07:39] LABS: BASO % 0.4 % (0.0-2.0); HEMOGLOBIN 9.8 g/dL (12.0-18.0); LYMPH # 1.4 K/uL (1.0-4.3); LYMPH % 11.7 % (20.0-40.0); MEAN CELL VOLUME 75.8 fL (80.0-94.0); MEAN CORPUSCULAR HGB CONC 31.7 g/dL (33.0-37.0); MEAN PLATELET VOLUME 9.4 fL (7.2-11.7); MONO # 1.3 K/uL (0.0-0.8); MONO % 10.6 % (0.0-10.0); NEUT # 9.1 K/uL (1.8-7.0); NEUT % 77.3 % (50.0-75.0); NRBC % 0.2 % (0.0-2.0); RBC 4.1 Mil/uL (4.40-5.90); RED CELL DISTRIBUTION WIDTH 19.7 % (11.5-14.5); WHITE BLOOD COUNT 11.8 K/uL (4.8-10.8)
[2016-10-17] MEDS: Pantoprazole 40 mg EC Tab PO SCH (09:29)
[2016-10-17] MEDS: Multiple Vitamins Tab PO SCH (09:29)
[2016-10-17] MEDS: Enoxaparin 40 mg Syringe SC SCH (09:29)
[2016-10-17] MEDS ORDERED: Ergocalciferol 50,000 Intl Units Cap PO SCH (10:00)
--- NOTE | 2016-10-17 12:41 | CP.PCM.DIS ---
Provider - Provider Date of Admission: 10/13/16 18:25 Attending physician: Gil Mishra Jr, MD Primary care physician: Dr. Mishra as hospitalist Pt report PMD is Dr. Mayberry Consults: Dr. Burks (pulmonology) Time Spent in preparation of Discharge (in minutes): 45 Diagnosis - Discharge Diagnosis (1) Alcohol abuse Status: Chronic Comment: Given ativan for signs of withdrawal. Pt refuses need for long-term rehab (2) COPD with acute exacerbation Status: Chronic Comment: Given education on stopping smoking (3) D-dimer, elevated Status: Acute Comment: [address] angio not performed. US VDL negative b/l for DVT (4) Hypertension Status: Chronic Priority: Medium Comment: Started on home amlodipine; BP normal Hospital Course - Lab Results Lab Results: Most Recent Lab Values WBC 11.8 K/uL (4.8-10.8) H 10/17/16 06:58 RBC 4.10 Mil/uL (4.40-5.90) L 10/17/16 06:58 Hgb 9.8 g/dL (12.0-18.0) L 10/17/16 06:58 Hct 31.1 % (35.0-51.0) L 10/17/16 06:58 MCV 75.8 fL (80.0-94.0) L 10/17/16 06:58 MCH 24.0 pg (27.0-31.0) L 10/17/16 06:58 MCHC 31.7 g/dL (33.0-37.0) L 10/17/16 06:58 RDW 19.7 % (11.5-14.5) H 10/17/16 06:58 Plt Count 201 K/uL (130-400) 10/17/16 06:58 MPV 9.4 fL (7.2-11.7) 10/17/16 06:58 Neut % (Auto) 77.3 % (50.0-75.0) H 10/17/16 06:58 Lymph % (Auto) 11.7 % (20.0-40.0) L 10/17/16 06:58 Davison % (Auto) 10.6 % (0.0-10.0) H 10/17/16 06:58 Eos % (Auto) 0.0 % (0.0-4.0) 10/17/16 06:58 Baso % (Auto) 0.4 % (0.0-2.0) 10/17/16 06:58 Neut # 9.1 K/uL (1.8-7.0) H 10/17/16 06:58 Lymph # 1.4 K/uL (1.0-4.3) 10/17/16 06:58 Davison # 1.3 K/uL (0.0-0.8) H 10/17/16 06:58 Eos # 0.0 K/uL (0.0-0.7) 10/17/16 06:58 Baso # 0.0 K/uL (0.0-0.2) 10/17/16 06:58 Neutrophils % (Manual) 89 % (50-75) H 10/13/16 11:36 Lymphocytes % (Manual) 7 % (20-40) L 10/13/16 11:36 Monocytes % (Manual) 4 % (0-10) 10/13/16 11:36 Platelet Estimate Normal (NORMAL) 10/13/16 11:36 Polychromasia Slight 10/13/16 11:36 Hypochromasia (manual) Slight 10/13/16 11:36 Anisocytosis (manual) Slight 10/13/16 11:36 Ovalocytes Slight 10/13/16 11:36 PT 11.2 SECONDS (9.7-12.2) 10/12/16 15:54 INR 1.0 10/12/16 15:54 APTT 30 SECONDS (21-34) 10/12/16 15:54 D-Dimer, Quantitative 270 ng/mlDDU (0-243) H 10/12/16 15:54 pO2 50 mm/Hg (30-55) 10/12/16 15:58 VBG pH 7.37 (7.32-7.43) 10/12/16 15:58 VBG pCO2 45 mmHg (40-60) 10/12/16 15:58 VBG HCO3 24.8 mmol/L 10/12/16 15:58 VBG Total CO2 27.4 mmol/L (22-28) 10/12/16 15:58 VBG O2 Sat (Calc) 85.8 % (40-65) H 10/12/16 15:58 VBG Base Excess 0.3 mmol/L (0.0-2.0) 10/12/16 15:58 VBG Potassium 3.1 mmol/L (3.6-5.2) L 10/12/16 15:58 Sodium 148.0 mmol/l (132-148) 10/12/16 15:58 Chloride 117.0 mmol/L (98-107) H 10/12/16 15:58 Glucose 110 mg/dl (75-110) 10/12/16 15:58 Lactate 2.3 mmol/L (0.7-2.1) H 10/12/16 15:58 Sodium 135 mmol/L (132-148) 10/17/16 06:58 Potassium 4.0 mmol/L (3.6-5.2) 10/17/16 06:58 Chloride 103 mmol/L (98-107) 10/17/16 06:58 Carbon Dioxide 23 mmol/L (22-30) 10/17/16 06:58 Anion Gap 14 (10-20) 10/17/16 06:58 BUN 27 mg/dL (9-20) H 10/17/16 06:58 Creatinine 1.2 MG/DL (0.8-1.5) 10/17/16 06:58 Est GFR ( Amer) > 60 10/17/16 06:58 Est GFR (Non-Af Amer) > 60 10/17/16 06:58 POC Glucose (mg/dL) 69 mg/dL (65-110) 10/12/16 14:32 Random Glucose 81 mg/dL (75-110) 10/17/16 06:58 Calcium 8.3 mg/dl (8.6-10.4) L 10/17/16 06:58 Phosphorus 3.7 mg/dL (2.5-4.5) 10/17/16 06:58 Magnesium 2.0 mg/dL (1.6-2.3) 10/17/16 06:58 Total Bilirubin 0.5 mg/dL (0.2-1.3) 10/17/16 06:58 AST 14 U/L (17-59) L D 10/17/16 06:58 ALT 23 U/L (21-72) 10/17/16 06:58 Alkaline Phosphatase 78 U/L (38-126) 10/17/16 06:58 Troponin I < 0.0120 ng/mL (0.00-0.120) 10/12/16 15:53 NT-Pro-B Natriuret Pep 113 pg/mL (0-900) 10/12/16 15:53 Total Protein 5.8 g/dL (6.3-8.3) L 10/17/16 06:58 Albumin 3.0 g/dL (3.5-5.0) L 10/17/16 06:58 Globulin 2.8 gm/dL (2.2-3.9) 10/17/16 06:58 Albumin/Globulin Ratio 1.1 (1.0-2.1) 10/17/16 06:58 Triglycerides 34 mg/dL (0-149) D 10/13/16 07:28 Cholesterol 220 mg/dL (0-199) H 10/13/16 07:28 LDL Cholesterol Direct 69 mg/dL (0-129) 10/13/16 07:28 HDL Cholesterol 143 mg/dL (30-70) H 10/13/16 07:28 Vitamin B12 299 pg/mL (239-931) 10/13/16 07:28 25-OH Vitamin D Total < 12.8 NG/ML (30.0-100.0) L 10/13/16 07:28 Folate 3.9 ng/mL 10/13/16 07:28 TSH 3rd Generation 0.13 mIU/L (0.46-4.68) L 10/13/16 07:28 Venous Blood Potassium 3.1 mmol/L (3.6-5.2) L 10/12/16 15:58 Urine Color Yellow (YELLOW) 10/12/16 17:46 Urine Clarity Clear (Clear) 10/12/16 17:46 Urine pH 5.0 (5.0-8.0) 10/12/16 17:46 Ur Specific [place] 1.016 (1.003-1.030) 10/12/16 17:46 Urine Protein Negative mg/dL (NEGATIVE) 10/12/16 17:46 Urine Glucose (UA) Normal mg/dL (Normal) 10/12/16 17:46 Urine Ketones Negative mg/dL (NEGATIVE) 10/12/16 17:46 Urine Blood Negative (NEGATIVE) 10/12/16 17:46 Urine Nitrate Negative (NEGATIVE) 10/12/16 17:46 Urine Bilirubin Negative (NEGATIVE) 10/12/16 17:46 Urine Urobilinogen Normal mg/dL (0.2-1.0) 07 17:46 Ur Leukocyte Esterase Neg Bhavani/uL (Negative) 10/12/16 17:46 Urine RBC (Auto) < 1 /hpf (0-3) 10/12/16 17:46 Ur Squamous Epith Cells < 1 /hpf (0-5) 10/12/16 17:46 Urine Opiates Screen Negative (NEGATIVE) 10/12/16 17:46 Urine Methadone Screen Negative (NEGATIVE) 10/12/16 17:46 Ur Barbiturates Screen Negative (NEGATIVE) 10/12/16 17:46 Ur Phencyclidine Scrn Negative (NEGATIVE) 10/12/16 17:46 Ur Amphetamines Screen Negative (NEGATIVE) 10/12/16 17:46 U Benzodiazepines Scrn Positive (NEGATIVE) 10/12/16 17:46 U Oth Cocaine Metabols Negative (NEGATIVE) 10/12/16 17:46 U Cannabinoids Screen Negative (NEGATIVE) 10/12/16 17:46 Alcohol, Quantitative 341 mg/dl (0-10) H 10/12/16 15:51 RPR Nonreactive (NONREACTIVE) 10/13/16 11:36 - Hospital Course Hospital Course: On admission: HPI: 61M with PMHx of HTN, HLD, COPD, ETOH Abuse, Tobacco Abuse presents to the ED after a syncopal episode. Patient reports drinking on the stoop earlier today with friends. He recalls passing out, but does not remember the events afterwards. He was told by friends that he landed flat on his back and it appeared that he hit his head. Denied any urinary or bowel incontinence, and tremors or convulsions prior. This has never happened to him before. Patient ambulates with a walker at all times. Denies any history of falls, trauma, weakness, or changes in gait. Denied fever, chills, headache, chest pain, SOB, abdominal pain, n/v/d/c, or urinary symptoms. PMHx: HTN, HLD, COPD, ETOH Abuse, Tobacco Abuse PSHx: Denied Meds: Takes 3 medications but does not recall the names or dosages All: NKDA SHx: [facility], 2-3 times a week for the past 40 years, smokes 1-3 cigarettes per day for the past 40 years, and denied any illicit drug use FHx: Unremarkable Hospital Course: Patient presented to the ED on 10/12/16 with complaints of syncope while drinking EtOH. CXR showed no abnormalities. ECG showed normal sinus rhythm, normal ECG. Bilateral lower extremity venous duplex exam due to elevated D- Dimer of 270, which was negative for DVT bilaterally. Patient also received a head CT without contrast, which showed mild generalized volume loss, but no other significant findings. Patient was found to have a serum alcohol level of 341 and was given Ativan, thiamine, folic acid and a multivitamin. CTA was attempted due to elevated D-Dimer but was unable to be completed due to poor IV access. A carotid duplex scan on 10/12/16 did not demonstrate hemodynamically significant stenosis of the right or left extracranial carotid arteries. An echocardiogram done on 10/12/16 showed mild concentric left ventricular hypertrophy, moderate-severe pulmonary hypertension and normal left ventricle systolic function with an EF of >70%. Patient was admitted to Internal Medicine on 10/13/16 for syncope. Patient was also treated for chronic diseases, including: Hypertension, prescribed amlodipine and a heart healthy diet. COPD exacerbation, prescribed duoneb, advair, spiriva, prednisone, and was started on a 2L nasal canula. Anxiety was treated with ativan. On 10/14/16, Dr. Wing Burks was consulted due to patient's history of COPD and current shortness of breath. Patient was continued on nebulizer, inhaled steroids, thiamine and folic acid. Patient was started on a nicotine patch. Further recommendations included monitoring patient for delirium tremens. Over course patient ambulated 1/4 distance of the hospital hallway and maintained an O2 saturation of 100%. Patient was counseled on diet and exercise for hyperlipidemia. Patient was encouraged to increase water intake and was counseled on alcohol cessation for alcohol abuse disorder. On 10/17/16 Physical Therapist completed therapeutic exercises and gait training. Pt deemed stable for discharge on 10/[address] Mishra. This is a brief summary of events. For a complete course, refer to the medical record. . - Date & Time of H&P Date of H&P: 10/12/16 Time of H&P: 19:34 Discharge Exam - Additional Findings Additional findings: - Constitutional Appears: Non-toxic, No Acute Distress - Head Exam Head Exam: ATRAUMATIC, NORMOCEPHALIC - Eye Exam Eye Exam: EOMI Pupil Exam: PERRL - ENT Exam ENT Exam: Mucous Membranes Moist - Respiratory Exam Respiratory Exam: Wheezes, NORMAL BREATHING PATTERN. absent: Accessory Muscle Use, Clear to Ausculation Bilateral - Cardiovascular Exam Cardiovascular Exam: REGULAR RHYTHM, +S1, +S2 - GI/Abdominal Exam GI & Abdominal Exam: Soft, Normal Bowel Sounds. absent: Tenderness - Extremities Exam Extremities Exam: Normal Inspection. absent: Pedal Edema, Tenderness - Neurological Exam Neurological Exam: Alert, Awake, Oriented x3 - Psychiatric Exam Psychiatric exam: Normal Affect, Normal Mood - Skin Skin Exam: Normal Color, Warm - Additional Findings Additional findings: - Constitutional Appears: Non-toxic, No Acute Distress - Head Exam Head Exam: ATRAUMATIC, NORMAL INSPECTION, NORMOCEPHALIC - Eye Exam Eye Exam: EOMI, Normal appearance, PERRL Pupil Exam: NORMAL ACCOMODATION, PERRL - ENT Exam ENT Exam: Mucous Membranes Moist - Neck Exam Neck Exam: Full ROM - Respiratory Exam Respiratory Exam: Wheezes (slight with expiration), NO rales, No respiratory distress - Cardiovascular Exam Cardiovascular Exam: REGULAR RHYTHM, +S1, +S2 - GI/Abdominal Exam GI & Abdominal Exam: Soft, Normal Bowel Sounds - Extremities Exam Extremities Exam: Full ROM, Normal Capillary Refill - Back Exam Back Exam: Full ROM - Neurological Exam Neurological Exam: Alert, Awake, Oriented x3 - Psychiatric Exam Psychiatric exam: Normal Affect, Normal Mood - Skin Skin Exam: Dry, Intact, Normal Color, Warm Additional comments: onychomycosis of toenails Discharge Plan - Discharge Medications Prescriptions: Ergocalciferol [Drisdol 50,000 Intl Units Cap] 1 cap PO Q7D #4 cap Fluticasone/Salmeterol 500/50 [Advair Diskus 500/50] 1 puff INH RQ12 #1 puff Folic Acid 1 mg PO DAILY #30 tab Thiamine [Vitamin B1 Tab] 100 mg PO DAILY #30 tab - Follow Up Plan Condition: GOOD Disposition: HOME/ ROUTINE Patient education suggested?: No Instructions: Thiamine (Vitamin B-1) (By mouth), Folic Acid (By mouth), Ergocalciferol (By mouth), Fluticasone/Salmeterol (By breathing), Tiotropium ( By breathing), Heart Failure (DC), Heart Healthy Diet (DC), Syncope (DC), COPD ( Chronic Obstructive Pulmonary Disease) (DC), Alcohol Intoxication (DC), Abuse of Alcohol (DC) Additional Instructions: Patient stable for discharge per Dr. Mishra. Patient may resume his home medications. He denies need for refills. He has been prescribed the following medications: Folic acid, thiamine Advair, and Ergocalciferol. Patient is make an appointment with their PMD, Dr. Mayberry, within one week of discharge for follow-up. He should also make an appointment to follow up with specialist, Dr. Burks, [employer], to continue evaluation of his COPD. He is advised to return to the emergency department if symptoms return or worsen. These instructions were given to the pt in Salvadorean. Patient expressed verbal understanding of these instructions. Pt reports having rolling walker at home and thus was not discharged with new prescription. Prescribed medications: Folic acid 1mg by mouth daily Thiamine 100mg, by mouth, daily Advair 500/50, 1 puff every 12hrs Ergocalciferol, one tab every monday for 3 months - follow up with PMD regarding Vitamin d Level Referrals: Gil Mishra Jr., MD [Medical Doctor] -
[2016-10-17 13:59] VITALS: RESP 20
[2016-10-17 16:01] VITALS: BP 129/77; PULSE 90; TEMP 98.2; O2SAT 100
--- NOTE | 2016-10-17 17:03 | CP.PCM.PN ---
Subjective - Date & Time of Evaluation Date of Evaluation: 10/17/16 Time of Evaluation: 08:30 - Subjective Subjective: Patient seen and examined in the morning Getting physical therapy Breathing much improved Afebrile Denies any chest pain Stable from pulmonary standpoint Patient advised to use medicine Objective - Vital Signs/Intake and Output Vital Signs (last 24 hours): Temp Pulse Resp BP Pulse Ox 98.2 F 90 20 129/77 100 10/17/16 15:00 10/17/16 15:00 10/17/16 15:00 10/17/16 15:00 10/17/16 15:00 Intake and Output: 10/17/16 10/17/16 06:59 18:59 Intake Total 750 700 Output Total 1100 500 Balance -350 200 - Medications Medications: Current Medications Albuterol/Ipratropium (Duoneb 3 Mg/0.5 Mg (3 Ml) Ud) 3 ml INH RQ4 [facility] Last Admin: 10/17/16 15:22 Dose: 3 ml Amlodipine Besylate (Norvasc) 5 mg PO DAILY [facility] Last Admin: 10/17/16 09:29 Dose: 5 mg Docusate Sodium (Colace) 100 mg PO DAILY [facility] Last Admin: 10/17/16 09:30 Dose: 100 mg Enoxaparin Sodium (Lovenox) 40 mg SC DAILY [facility] Last Admin: 10/17/16 09:29 Dose: 40 mg Ergocalciferol (Drisdol 50,000 Intl Units Cap) 1 cap PO Q7D [facility] Last Admin: 10/17/16 09:57 Dose: 1 cap Folic Acid (Folic Acid) 1 mg PO DAILY [facility] Last Admin: 10/17/16 09:29 Dose: 1 mg Lorazepam (Ativan) 1 mg IVP Q6H PRN PRN Reason: Anxiety Last Admin: 10/14/16 00:09 Dose: 1 mg Multivitamins (Hexavitamin) 1 tab PO DAILY [facility] Last Admin: 10/17/16 09:29 Dose: 1 tab Nicotine (Nicoderm Cq) 1 patch TD DAILY [facility] Last Admin: 10/17/16 09:29 Dose: 1 patch Pantoprazole Sodium (Protonix Ec Tab) 40 mg PO DAILY [facility] Last Admin: 10/17/16 09:29 Dose: 40 mg Prednisone (Prednisone Tab) 40 mg PO BID [facility] Last Admin: 10/17/16 09:29 Dose: 40 mg Fluticasone/Salmeterol (Advair Diskus 500/50) 1 puff INH RQ12 [facility] Last Admin: 10/17/16 07:30 Dose: 1 puff Thiamine HCl (Vitamin B1 Tab) 100 mg PO DAILY [facility] Last Admin: 10/17/16 09:31 Dose: 100 mg Tiotropium [place] (Spiriva) 18 mcg INH RQ24 [facility] Last Admin: 10/17/16 07:30 Dose: 18 mcg - Labs Labs: 10/17/16 06:58 10/17/16 06:58 PT 11.2 SECONDS (9.7-12.2) 10/12/16 15:54 INR 1.0 10/12/16 15:54 APTT 30 SECONDS (21-34) 10/12/16 15:54 Assessment and Plan (1) COPD (chronic obstructive pulmonary disease) Status: Acute (2) Syncope Status: Acute (3) Alcohol dependence Status: Acute
== END 2016-10-17 18:25 | disposition home or self-care (01) | DRG 192 ==
LOC: C.ER 14:20 → C.9E 18:21 → C.6T 18:21 → OBSVTOIN 10-13 18:25 → C.3T 10-17 13:35
PROVIDERS: ADMIT Internal Medicine; ATTEND Internal Medicine
DX: J44.1 Chronic obstructive pulmonary disease with (acute) exacerbation (principal); R55 Syncope and collapse; F10.20 Alcohol dependence, uncomplicated; E87.6 Hypokalemia; I27.2 Other secondary pulmonary hypertension; I10 Essential (primary) hypertension; Y90.8 Blood alcohol level of 240 mg/100 ml or more; E55.9 Vitamin D deficiency, unspecified; J43.9 Emphysema, unspecified; E78.5 Hyperlipidemia, unspecified; F41.9 Anxiety disorder, unspecified; E78.00 Pure hypercholesterolemia, unspecified; K59.00 Constipation, unspecified; F17.210 Nicotine dependence, cigarettes, uncomplicated; J45.909 Unspecified asthma, uncomplicated

== ENCOUNTER 2016-10-28 17:41 | Emergency (ER) | payer MEDICARE ==
[2016-10-28 17:41] VITALS: BMI 31.0
[2016-10-28 18:04] VITALS: TEMP 97.8
[2016-10-28] MEDS ORDERED: Sodium Chloride 0.9% 1,000 ML IV ONE (19:19)
[2016-10-28] MEDS ORDERED: Albuterol-Ipratrop 3 mg / 0.5 (3 ml) UD INH STA (19:21)
[2016-10-28] MEDS ORDERED: Multivitamin (MVI) 10 ML, Thiamine 100 MG, Folic Acid 1 MG in Sodium Chloride 0.9% 1,00... IV ONE (19:22)
--- NOTE | 2016-10-28 19:33 | C.PDOC ---
History Of Present Illness 61 year old male with a Hx of chronic ETOH abuse brought in to the ER via [facility] with a complaint of right sided chest pain and SOB for the past few days that has increased tonight. Patient was found to be wheezing and hypotensive in the field; denies nausea, vomiting, fever, or chills. Chief Complaint (Nursing): Shortness Of Breath History Per: Patient History/Exam Limitations: no limitations Onset/Duration Of Symptoms: Hrs Current Symptoms Are (Timing): Still Present Initiating Event: Other (Not known) Associated Symptoms: denies: Fever, Chills Recent travel outside of the [place]: No Past Medical History Reviewed: Historical Data, Nursing Documentation, Vital Signs Vital Signs: Last Vital Signs Temp 97.8 F 10/28/16 17:52 Pulse 88 10/29/16 00:11 Resp 18 10/29/16 00:11 BP 144/76 10/29/16 00:11 Pulse Ox 98 10/29/16 00:11 - Medical History PMH: Anxiety, Asthma, Bronchitis, COPD (Emphysema), Emphysema, HTN, Hypercholesterolemia - [facility] Procedures ALCOHOL DETOXIFICATION (07/16/14) DETOXIFICATION SERVICES FOR SUBSTANCE ABUSE TREATMENT (10/01/15) EXCISION OF TOE NAIL, EXTERNAL APPROACH (02/12/15) FLUOROSCOPY OF SUPERIOR VENA CAVA, GUIDANCE (02/21/15) HOME MANAGEMENT TREATMENT (02/12/15) INFLUENZA VACCINATION (12/19/14) INJECT/INFUSE NEC (02/12/14) INSERTION OF INFUSION DEV INTO SUP VENA CAVA, PERC APPROACH (09/09/15) INTRODUCE OF OTH THERAP SUBST INTO RESP TRACT, VIA OPENING (02/12/15) INTRODUCTION OF ANTI-INFLAM INTO RESP TRACT, VIA OPENING (08/27/15) MEDS MGMT FOR SUBSTANCE ABUSE TREATMENT, OTH REPL MED (01/11/16) NEBULIZER THERAPY (12/19/14) OXYGEN ENRICHMENT NEC (09/25/13) THERAPEUTIC EXERCISE TREATMENT OF MUSCULOSK WHOLE (02/12/15) ULTRASONOGRAPHY OF SUPERIOR VENA CAVA, GUIDANCE (02/21/15) VACCINATION NEC (09/25/13) Family History: States: Unknown Family Hx - Social History Hx Tobacco Use: Yes Hx Alcohol Use: Yes Hx Substance Use: No (Alcohol) - Immunization History Hx Tetanus Toxoid Vaccination: (unk) Hx Influenza Vaccination: Yes (01/2015) Hx Pneumococcal Vaccination: Yes Review Of Systems Constitutional: Negative for: Fever, Chills Cardiovascular: Positive for: Chest Pain Respiratory: Positive for: Shortness of Breath, Wheezing Gastrointestinal: Negative for: Nausea, Vomiting Physical Exam - Physical Exam Appears: Non-toxic, Other (Awake, alert, conscious) Skin: Normal Color, Warm, Dry Head: Atraumatic, Normacephalic Oral Mucosa: Moist Chest: Symmetrical, Tenderness (Right sided) Cardiovascular: Rhythm Regular, No Murmur Respiratory: No Rales, Rhonchi (Bilateral), Wheezing (Occasional) Gastrointestinal/Abdominal: Soft, No Tenderness Extremity: Normal ROM, No Pedal Edema Neurological/Psych: Oriented x3, Normal Speech, Normal Cognition ED Course And Treatment - Laboratory Results Result Diagrams: 10/28/16 19:40 10/28/16 19:40 O2 Sat by Pulse Oximetry: 96 (Room air) Pulse Ox Interpretation: Normal - Radiology CXR: Interpreted by Me, Viewed By Me CXR Interpretation: Yes: No Acute Disease. No: Infiltrates Progress Note: EKG, CXR, and blood work ordered. Toradol, nebulizer treatment, IV fluids administered. Disposition Counseled Patient/Family Regarding: Diagnosis - Disposition Referrals: [facility] [Outside] Disposition Time: 00:57 Condition: STABLE Prescriptions: Albuterol HFA [Ventolin HFA 90 mcg/actuation (8 g)] 2 puff IH [id number] #1 bottle Instructions: Abuse of Alcohol (ED), Wheezing (ED) Forms: [facility] (Welsh) - POA Present On Arrival: None - Clinical Impression Clinical Impression: Alcohol abuse with intoxication, Asthma - Scribe Statement The provider has reviewed the documentation as recorded by the Scribhaleigh Burns All medical record entries made by the Scribe were at my direction and personally dictated by me. I have reviewed the chart and agree that the record accurately reflects my personal performance of the history, physical exam, medical decision making, and the department course for this patient. I have also personally directed, reviewed, and agree with the discharge instructions and disposition.
[2016-10-28] MEDS ORDERED: Albuterol-Ipratrop 3 mg / 0.5 (3 ml) UD ONE (19:34)
[2016-10-28 19:43] VITALS: RESP 18
[2016-10-28] MEDS ORDERED: Sodium Chloride 0.9% 1,000 ML ONE (19:46)
[2016-10-28 19:51] LABS: CHLORIDE 107 mmol/L (98-107)
[2016-10-28 19:52] LABS: SODIUM 143 mmol/L (132-148)
[2016-10-28 19:53] LABS: POTASSIUM 3.7 mmol/L (3.6-5.2)
[2016-10-28 19:55] LABS: ALKALINE PHOSPHATASE 97 U/L (38-126); ALT/SGPT 17 U/L (21-72); AST/SGOT 21 U/L (17-59); BILIRUBIN,TOTAL 0.5 mg/dL (0.2-1.3); BLOOD UREA NITROGEN 8 mg/dL (9-20); CARBON DIOXIDE 20 mmol/L (22-30); GFR AFRICAN-AMERICAN > 60; GLUCOSE,RANDOM 126 mg/dL (75-110)
[2016-10-28 19:56] LABS: ALCOHOL SERUM 235 mg/dl (0-10); CALCIUM 8.3 mg/dl (8.6-10.4)
[2016-10-28 19:57] LABS: BASO # 0.1 K/uL (0.0-0.2); BASO % 1.1 % (0.0-2.0); EOS % 0.6 % (0.0-4.0); HEMATOCRIT 32.8 % (35.0-51.0); LYMPH # 0.5 K/uL (1.0-4.3); LYMPH % 9.2 % (20.0-40.0); MEAN CELL VOLUME 76.2 fL (80.0-94.0); MEAN CORPUSCULAR HEMOGLOBIN 24.4 pg (27.0-31.0); MEAN PLATELET VOLUME 8.2 fL (7.2-11.7); MONO # 0.1 K/uL (0.0-0.8); MONO % 2.7 % (0.0-10.0); NRBC % 0.1 % (0.0-2.0); PLATELET COUNT 262 K/uL (130-400); RED CELL DISTRIBUTION WIDTH 21.2 % (11.5-14.5)
[2016-10-28 19:59] LABS: WHITE BLOOD COUNT 5.4 K/uL (4.8-10.8)
[2016-10-28 20:40] LABS: NEUTROPHIL 84 % (50-75); TOTAL CELLS COUNTED 100
[2016-10-29 00:11] VITALS: PULSE 88
[2016-10-29 01:00] VITALS: BP 139/85; O2SAT 96
--- NOTE | 2016-10-29 08:50 | RAD ---
PROCEDURE: CHEST RADIOGRAPH, 1 VIEW HISTORY: Chest pain COMPARISON: 10/12/2016. FINDINGS: LUNGS: The lungs are well inflated and clear. PLEURA: No pneumothorax or pleural fluid seen. CARDIOVASCULAR: Normal. OSSEOUS STRUCTURES: No significant abnormalities. VISUALIZED UPPER ABDOMEN: Normal. OTHER FINDINGS: None. IMPRESSION: No active pulmonary disease.
--- NOTE | 2016-10-31 14:38 | CARD ---
APPROVED REPORT EKG Measurement Heart [id number] <Conclusion> Sinus rhythm with premature atrial complexes Left axis deviation Abnormal ECG
== END 2016-10-29 01:03 | disposition home or self-care (01) ==
LOC: C.ER 17:41
DX: F10.129 Alcohol abuse with intoxication, unspecified (principal); J45.909 Unspecified asthma, uncomplicated; I10 Essential (primary) hypertension; E78.00 Pure hypercholesterolemia, unspecified
CPT/HCPCS: 71010; 80053; 84484; 85025; 93005; 94640; 96374; 99285; G0480; J1885; J3411; J7040

== ENCOUNTER 2016-11-06 20:44 | Emergency (ER) | payer MEDICARE ==
[2016-11-06 20:44] VITALS: BMI 31.0
[2016-11-06 20:59] VITALS: TEMP 98.2
[2016-11-07 00:46] VITALS: PULSE 109; RESP 16; O2SAT 99
[2016-11-07 00:53] VITALS: BP 134/81
== END 2016-11-07 01:38 | disposition home or self-care (01) ==
LOC: C.ER 20:44
DX: F10.120 Alcohol abuse with intoxication, uncomplicated (principal); Y90.9 Presence of alcohol in blood, level not specified; Z76.5 Malingerer [conscious simulation]

== ENCOUNTER 2016-12-15 10:08 | Inpatient (IN) | payer MEDICARE ==
[2016-12-15 10:08] VITALS: BMI 31.0
[2016-12-15] MEDS ORDERED: Albuterol-Ipratrop 3 mg / 0.5 (3 ml) UD IH SCH (11:00)
--- NOTE | 2016-12-15 11:09 | C.PDOC ---
History Of Present Illness 61 y/o male, with PMHx of Asthma, COPD, HTN, and alcohol abuse, presents to the ED for evaluation of shortness of breath which began at around 0500 this morning. Patient was unable to find relief after using his inhaler. Patient also complains of alcohol withdrawal. Patient states he was binge drinking earlier this week and his last drink was yesterday. Patient was unable to have a drink today because he was feeling too sick and the liquor store was closed. Otherwise, patient denies fever, chills, chest pain, extremity numbness/ weakness. Time Seen by Provider: 12/15/16 10:37 Chief Complaint (Nursing): Shortness Of Breath History Per: Patient History/Exam Limitations: no limitations Onset/Duration Of Symptoms: Hrs Current Symptoms Are (Timing): Still Present Quality: denies: "Pain" Current Respiratory Medications: See Home Med List Associated Symptoms: denies: Fever, Chills, Chest Pain, Tingling In Hands Or Face Additional History Per: Patient Past Medical History Reviewed: Historical Data, Nursing Documentation, Vital Signs Vital Signs: Last Vital Signs Temp 99.3 F 12/15/16 13:24 Pulse 94 H 12/15/16 15:51 Resp 18 12/15/16 15:51 BP 149/75 12/15/16 15:51 Pulse Ox 97 12/15/16 15:51 - Medical History PMH: Anxiety, Asthma, Bronchitis, COPD (Emphysema), Emphysema, HTN, Hypercholesterolemia Surgical History: No Surg Hx - [facility] Procedures ALCOHOL DETOXIFICATION (07/16/14) DETOXIFICATION SERVICES FOR SUBSTANCE ABUSE TREATMENT (10/01/15) EXCISION OF TOE NAIL, EXTERNAL APPROACH (02/12/15) FLUOROSCOPY OF SUPERIOR VENA CAVA, GUIDANCE (02/21/15) HOME MANAGEMENT TREATMENT (02/12/15) INFLUENZA VACCINATION (12/19/14) INJECT/INFUSE NEC (02/12/14) INSERTION OF INFUSION DEV INTO SUP VENA CAVA, PERC APPROACH (09/09/15) INTRODUCE OF OTH THERAP SUBST INTO RESP TRACT, VIA OPENING (02/12/15) INTRODUCTION OF ANTI-INFLAM INTO RESP TRACT, VIA OPENING (08/27/15) MEDS MGMT FOR SUBSTANCE ABUSE TREATMENT, OTH REPL MED (01/11/16) NEBULIZER THERAPY (12/19/14) OXYGEN ENRICHMENT NEC (09/25/13) THERAPEUTIC EXERCISE TREATMENT OF MUSCULOSK WHOLE (02/12/15) ULTRASONOGRAPHY OF SUPERIOR VENA CAVA, GUIDANCE (02/21/15) VACCINATION NEC (09/25/13) Family History: States: Unknown Family Hx - Social History Hx Tobacco Use: Yes Hx Alcohol Use: Yes Hx Substance Use: No (Alcohol) - Immunization History Hx Tetanus Toxoid Vaccination: Yes Hx Influenza Vaccination: Yes (01/2015) Hx Pneumococcal Vaccination: Yes Review Of Systems Constitutional: Negative for: Fever, Chills Cardiovascular: Negative for: Chest Pain, Palpitations Respiratory: Positive for: Shortness of Breath Gastrointestinal: Negative for: Nausea, Vomiting, Diarrhea Psych: Positive for: Withdrawal (alcohol ) Physical Exam - Physical Exam Appears: Non-toxic, No Acute Distress Skin: Normal Color, Warm, Dry Head: Atraumatic, Normacephalic Eye(s): bilateral: Normal Inspection Oral Mucosa: Moist Neck: Supple Chest: Symmetrical, No Deformity, No Tenderness Cardiovascular: Rhythm Regular, No Murmur Respiratory: Normal Breath Sounds, No Rales, No Rhonchi, No Wheezing Back: Normal Inspection Extremity: Normal ROM, No Pedal Edema, Capillary Refill (less than 2 seconds ) Neurological/Psych: Oriented x3, Normal Speech, Normal Cognition Gait: Steady ED Course And Treatment - Laboratory Results Result Diagrams: 12/15/16 11:40 12/15/16 14:04 O2 Sat by Pulse Oximetry: 99 - Other Rad CXR X-Ray: Interpreted by Me, Viewed By Me, Read By Radiologist Interpretation: PROCEDURE: CHEST RADIOGRAPH, 1 VIEW. HISTORY: SOB. COMPARISON: Comparison chest 10/28/2016. FINDINGS: LUNGS: Suspect minor right basilar atelectasis or scarring. PLEURA: No pneumothorax or pleural fluid seen. CARDIOVASCULAR: Normal. . OSSEOUS STRUCTURES: Degenerative changes both shoulder girdles. VISUALIZED UPPER ABDOMEN: Normal. OTHER FINDINGS: None. IMPRESSION: Suspect minor right basilar atelectasis or scarring. Medical Decision Making Medical Decision Making: Impression: 61y/o male with shortness of breath, alcohol withdrawal Differential Diagnoses include but are not limited to: Asthma vs COPD exacerbation with associated alcohol withdrawal Plan: * labs * CXR * Duoneb INH * Solu-Medrol IVP * reassess and disposition Progress: labs, EKG, CXR ordered and reviewed. Patient received Duoneb INH and Solu-Medrol IVP. Patient persistently tremulous. Multiple doses of ativan given in the ED. Disposition Discussed With Dr.: Hiro Turcios Counseled Patient/Family Regarding: Studies Performed - Disposition Disposition: HOSPITALIZED Disposition Time: 16:29 Condition: GUARDED Forms: [facility] (Polish) - Clinical Impression Clinical Impression: SOB (shortness of breath), Alcohol withdrawal, Alcohol abuse, COPD (chronic obstructive pulmonary disease) - Scribe Statement The provider has reviewed the documentation as recorded by the Scribe (Natalya Alan) Provider Attestation: All medical record entries made by the Scribe were at my direction and personally dictated by me. I have reviewed the chart and agree that the record accurately reflects my personal performance of the history, physical exam, medical decision making, and the department course for this patient. I have also personally directed, reviewed, and agree with the discharge instructions and disposition. Decision To Admit - Pt Status Changed To: Hospital Disposition Of: Inpatient - Admit Certification Admit to Inpatient:: After my assessment, the patient will require hospitalization for at least two midnights. This is because of the severity of symptoms shown, intensity of services needed, and/or the medical risk in this patient being treated as an outpatient. - InPatient: Physician Admission Certification: I certify that this patient requires 2 or more midnights of care for the following reason:: sob, etoh withdrawl - . Bed Request Type: Telemetry Patient Diagnosis: SOB (shortness of breath), Alcohol withdrawal, Alcohol abuse, COPD (chronic obstructive pulmonary disease)
[2016-12-15 11:44] LABS: EOS % 0.9 % (0.0-4.0); HEMATOCRIT 35.7 % (35.0-51.0); LYMPH # 2.4 K/uL (1.0-4.3); LYMPH % 34.6 % (20.0-40.0); MEAN CELL VOLUME 76.5 fL (80.0-94.0); MEAN CORPUSCULAR HEMOGLOBIN 24.9 pg (27.0-31.0); MEAN CORPUSCULAR HGB CONC 32.5 g/dL (33.0-37.0); MEAN PLATELET VOLUME 8.5 fL (7.2-11.7); MONO # 0.6 K/uL (0.0-0.8); MONO % 8.5 % (0.0-10.0); NRBC % 0.1 % (0.0-2.0); RED CELL DISTRIBUTION WIDTH 20.5 % (11.5-14.5); WHITE BLOOD COUNT 6.9 K/uL (4.8-10.8)
[2016-12-15 11:45] LABS: BASO # 0.1 K/uL (0.0-0.2); EOS # 0.1 K/uL (0.0-0.7)
[2016-12-15] MEDS ORDERED: Albuterol-Ipratrop 3 mg / 0.5 (3 ml) UD ONE (12:16)
--- NOTE | 2016-12-15 13:23 | RAD ---
PROCEDURE: CHEST RADIOGRAPH, 1 VIEW HISTORY: SOB COMPARISON: Comparison chest 10/28/2016 FINDINGS: LUNGS: Suspect minor right basilar atelectasis or scarring PLEURA: No pneumothorax or pleural fluid seen. CARDIOVASCULAR: Normal. . OSSEOUS STRUCTURES: Degenerative changes both shoulder girdles. VISUALIZED UPPER ABDOMEN: Normal. OTHER FINDINGS: None. IMPRESSION: Suspect minor right basilar atelectasis or scarring.
[2016-12-15] MEDS ORDERED: MethylPREDNISolone 40 mg Vial IM STA (14:10)
[2016-12-15 14:38] LABS: CHLORIDE 104 mmol/L (98-107); POTASSIUM 3.9 mmol/L (3.6-5.2); SODIUM 135 mmol/L (132-148)
[2016-12-15 14:40] LABS: BILIRUBIN,TOTAL 0.6 mg/dL (0.2-1.3); GFR AFRICAN-AMERICAN > 60
[2016-12-15 14:41] LABS: ALB/GLOB RATIO 1.2 (1.0-2.1); ALKALINE PHOSPHATASE 82 U/L (38-126); ALT/SGPT 37 U/L (21-72); AST/SGOT 41 U/L (17-59); BLOOD UREA NITROGEN 22 mg/dL (9-20); CARBON DIOXIDE 21 mmol/L (22-30); GLUCOSE,RANDOM 85 mg/dL (75-110); TOTAL PROTEIN 6.8 g/dL (6.3-8.3)
[2016-12-15 14:42] LABS: CALCIUM 8.1 mg/dl (8.6-10.4)
--- NOTE | 2016-12-15 19:43 | CP.PCM.HP ---
History of Present Illness - History of Present Illness History of Present Illness: COMPREHENSIVE HISTORY & PHYSICAL EXAM HPI 61 y/o male, with PMHx of Asthma, COPD, HTN, and alcohol abuse, presents to the ED for evaluation of shortness of breath which began at around 0500 this morning. Patient was unable to find relief after using his inhaler. Patient also complains of alcohol withdrawal. Patient states he was binge drinking earlier this week and his last drink was yesterday. PAST HIST. PERSONAL HIST: Smoking. y Alcohol. Heavy Allergy N Travel _- . FAMILY HIST : ROS : Constitutional: Negative for weight change, chills, night sweats Eyes: Negative for redness, swelling, itching, discharge, vision changes, blurry vision, double vision, glaucoma, cataracts, Ears: Negative for hearing loss, ringing, , tinnitus, vertigo Nose: Negative for rhinorrhea, stuffiness, sniffing, itching, postnasal drip, discoloration, nasal congestion and epistaxis. Throat: Negative for throat clearing, sore throat, hoarseness, difficulty swallowing and difficulty speaking. Respiratory: Negative for cough, chest tightness, sputum or phlegm, chronic cough, hemoptysis, wheezing, snoring at night, pleuritic chest pain and daytime somnolence. Cardiovascular: Negative for chest pain, orthopnea, PND, Edema of legs, leg cramps, angina, claudication, , irregular heartbeat, Neurology: Negative for irritability, muscle weakness Gastrointestinal: Negative for difficulty swallowing, diarrhea, constipation, black stools, rectal bleeding, nausea, flatulence, reflux, poor appetite, changes in bowel habits, abdominal pain Genitourinary: Negative for frequent urination, hematuria, discharge, incontinence, urinary retention, frequent UTI, Psychiatric: Negative for depression, anxiety/panic, suicidal tendencies, Musculoskeletal: Negative for swollen joints, back pain, , neck pain, morning stiffness of joints, . Skin: Negative for rash, ulcers, itching, dry skin and pigmented lesions. P/E: Constitutional: Appears stated age and in no apparent distress. Head: Normocephalic. Ears: External ear canals patent without inflammation. Tympanic membranes intact with normal light reflex and landmark. Eyes: Pupils are central, bilaterally equal, symmetrical and reacts to light with normal movements and no icterus or pallor. Nose: External nares are patent. Mucosa is pink Mouth-Throat: Good general appearance and condition. No post-pharyngeal/oropharyngeal erythema and tonsillar hypertrophy. Good dental hygiene. Neck-Lymphatic: Neck is supple with normal ROM, no thyromegaly, lymph nodes or masses. JVD is normal with no carotid bruit. Lungs: Clear to percussion and auscultation with bilateral wheezing Cardiovascular: S1 and S2 are normal with no murmurs, gallops and rub. GI Exam: No hepatomegaly. Abdomen is soft and non-tender. No Organomegaly , masses or hernias are evident and bowel sounds are normal and active. Neurology: Higher function and all cranial nerves intact, with no gross motor or sensory deficit. Superficial and deep reflexes are normal with downwards planters. No cerebellar deficit with normal gait. Musculoskeletal: No tender spots with normal curvature of the spine with no swelling or restricted ROM of the small and large joints. Extremities: Homans sign absent. Intact pulses with no pitting edema, calf tenderness or skin color changes. Skin: No rash, eruptions or abnormal skin pigmentation LAB/RADIOLOGY: ASSESMENT : ALCOHOL WITHDRAWAL WITH IMPENDING GTS COPD WITH EXACERBATION HTN ALCOHOL ABUSE PLAN: SEE ORDES Present on Admission - Present on Admission Any Indicators Present on Admission: No Past Patient History - Infectious Disease Hx of Infectious Diseases: None - Past Medical History & Family History Past Medical History?: Yes - Past Social History Smoking Status: Heavy Smoker > 10 Cigarettes Daily - CARDIAC Hx Hypercholesterolemia: Yes Hx Hypertension: Yes - PULMONARY Hx Asthma: Yes Hx Bronchitis: Yes Hx Chronic Obstructive Pulmonary Disease (COPD): Yes (Emphysema) Hx Emphysema: Yes - NEUROLOGICAL Hx Seizures: No - HEENT Hx HEENT Problems: No - RENAL Hx Chronic Kidney Disease: No - ENDOCRINE/METABOLIC Hx Endocrine Disorders: No - HEMATOLOGICAL/ONCOLOGICAL Hx Human Immunodeficiency Virus (HIV): No - INTEGUMENTARY Hx Dermatological Problems: No - MUSCULOSKELETAL/RHEUMATOLOGICAL Hx Musculoskeletal Disorders: Yes Hx Falls: No - GASTROINTESTINAL Hx Gastrointestinal Disorders: No - GENITOURINARY/GYNECOLOGICAL Hx Genitourinary Disorders: No Hx Sexually Transmitted Disorders: No - PSYCHIATRIC Hx Anxiety: Yes Hx Substance Use: No - SURGICAL HISTORY Hx Surgeries: No - ANESTHESIA Hx Anesthesia: No Hx Anesthesia Reactions: No Hx Malignant Hyperthermia: No Has any member of the family had a problem w/ anesthesia?: No Meds Allergies/Adverse Reactions: Allergies Allergy/AdvReac Type Severity Reaction Status Date / Time No Known Allergies Allergy Verified 12/15/16 10:13 Results - Vital Signs Recent Vital Signs: Last Vital Signs Temp 98.7 F 12/15/16 17:36 Pulse 87 12/15/16 17:45 Resp 20 12/15/16 17:44 BP 150/85 12/15/16 17:36 Pulse Ox 95 12/15/16 17:36 - Labs Result Diagrams: 12/15/16 11:40 12/15/16 14:04
[2016-12-15] MEDS: Albuterol-Ipratrop 3 mg / 0.5 (3 ml) UD INH SCH (21:01)
[2016-12-16] MEDS: Albuterol-Ipratrop 3 mg / 0.5 (3 ml) UD INH SCH ×4 (01:07→21:21)
[2016-12-16 06:42] LABS: BASO % 0.2 % (0.0-2.0); HEMATOCRIT 30.7 % (35.0-51.0); LYMPH # 0.4 K/uL (1.0-4.3); LYMPH % 11.6 % (20.0-40.0); MEAN CELL VOLUME 76.1 fL (80.0-94.0); MEAN CORPUSCULAR HEMOGLOBIN 24.8 pg (27.0-31.0); MEAN CORPUSCULAR HGB CONC 32.6 g/dL (33.0-37.0); MEAN PLATELET VOLUME 8.4 fL (7.2-11.7); MONO # 0.1 K/uL (0.0-0.8); MONO % 2.8 % (0.0-10.0); RED CELL DISTRIBUTION WIDTH 19.8 % (11.5-14.5); WHITE BLOOD COUNT 3.3 K/uL (4.8-10.8)
[2016-12-16 06:50] LABS: CHLORIDE 102 mmol/L (98-107)
[2016-12-16 06:51] LABS: POTASSIUM 4.2 mmol/L (3.6-5.2); SODIUM 133 mmol/L (132-148)
[2016-12-16 06:53] LABS: GFR AFRICAN-AMERICAN > 60
[2016-12-16 06:54] LABS: ALB/GLOB RATIO 1.3 (1.0-2.1); ALKALINE PHOSPHATASE 88 U/L (38-126); ALT/SGPT 29 U/L (21-72); AST/SGOT 30 U/L (17-59); BILIRUBIN,TOTAL 0.8 mg/dL (0.2-1.3); BLOOD UREA NITROGEN 22 mg/dL (9-20); CALCIUM 8.9 mg/dl (8.6-10.4); CARBON DIOXIDE 18 mmol/L (22-30); GLUCOSE,RANDOM 190 mg/dL (75-110); TOTAL PROTEIN 6.4 g/dL (6.3-8.3)
[2016-12-16 06:55] LABS: MAGNESIUM 1.8 mg/dL (1.6-2.3)
[2016-12-16] MEDS: Enoxaparin 40 mg Syringe SC SCH (10:01)
--- NOTE | 2016-12-16 14:25 | CP.PCM.PN ---
Subjective - Date & Time of Evaluation Date of Evaluation: 12/16/16 Time of Evaluation: 14:23 - Subjective Subjective: CHIEF COMPLAINTS TODAY : MILD SHAKES LESS WHEEZING ROS. HEENT : N. Resp : No ,pleuritic CP ,or hemoptysis Cardio : No anginal CP, PND, orthopnea, palpitation GI : No abd.pain, n/v ,diarrhea or GI bleeding . 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 Musculoskel : No joint swelling , Derm : No rash Psych : Normal affect. Ext : No swelling ,calf pain PE. Pt. is alert awake in no distress. V.S As noted in the chart Head ,ear nose,throat and eyes : Normal. Neck : Supple with normal carotids. Lungs: RONCHI Heart : S1 & S2 normal with S4. No murmur. Abd : Soft non tender with normal bowel sounds. Neuro : Moves all ext. with no localized deficit. Ext : No edema with intact pulses.Non tender calves TREMORS Derm : No rashes or decubitus ulcer. LABS/RADIOLOGY: ASSESSMENT/PLAN : CONT NEB/LIBRIUM Objective - Vital Signs/Intake and Output Vital Signs (last 24 hours): Temp Pulse Resp BP Pulse Ox 98.5 F 84 18 130/84 97 12/16/16 07:10 12/16/16 08:13 12/16/16 07:10 12/16/16 07:10 12/16/16 07:10 Intake and Output: 12/16/16 12/16/16 11:59 23:59 Output Total 300 Balance -300 - Medications Medications: Current Medications Albuterol/Ipratropium (Duoneb 3 Mg/0.5 Mg (3 Ml) Ud) 3 ml INH RQ6 [facility] Last Admin: 12/16/16 13:44 Dose: 3 ml Chlordiazepoxide (Librium) 25 mg PO Q8 PRN PRN Reason: Anxiety Last Admin: 12/16/16 13:51 Dose: 25 mg Enoxaparin Sodium (Lovenox) 40 mg SC DAILY [facility] Last Admin: 12/16/16 10:01 Dose: 40 mg Methylprednisolone (Solu-Medrol) 60 mg IV Q8H [facility] Last Admin: 12/16/16 13:48 Dose: 60 mg - Labs Labs: 12/16/16 06:28 12/16/16 06:28
[2016-12-17] MEDS: Albuterol-Ipratrop 3 mg / 0.5 (3 ml) UD INH SCH ×4 (01:11→19:38)
[2016-12-17 07:36] LABS: CHLORIDE 105 mmol/L (98-107)
[2016-12-17 07:37] LABS: POTASSIUM 3.9 mmol/L (3.6-5.2); SODIUM 134 mmol/L (132-148)
[2016-12-17 07:39] LABS: ALB/GLOB RATIO 1.2 (1.0-2.1); ALKALINE PHOSPHATASE 88 U/L (38-126); ALT/SGPT 29 U/L (21-72); AST/SGOT 26 U/L (17-59); BILIRUBIN,TOTAL 0.6 mg/dL (0.2-1.3); BLOOD UREA NITROGEN 28 mg/dL (9-20); CALCIUM 8.5 mg/dl (8.6-10.4); CARBON DIOXIDE 20 mmol/L (22-30); GFR AFRICAN-AMERICAN > 60; GLUCOSE,RANDOM 114 mg/dL (75-110); TOTAL PROTEIN 6.8 g/dL (6.3-8.3)
[2016-12-17 07:46] LABS: BASO % 0.1 % (0.0-2.0); HEMATOCRIT 30.8 % (35.0-51.0); LYMPH # 0.9 K/uL (1.0-4.3); LYMPH % 11.2 % (20.0-40.0); MEAN CELL VOLUME 76.2 fL (80.0-94.0); MEAN CORPUSCULAR HGB CONC 32.8 g/dL (33.0-37.0); MEAN PLATELET VOLUME 9.5 fL (7.2-11.7); MONO # 0.2 K/uL (0.0-0.8); MONO % 2.1 % (0.0-10.0); RED CELL DISTRIBUTION WIDTH 19.8 % (11.5-14.5); WHITE BLOOD COUNT 7.8 K/uL (4.8-10.8)
[2016-12-17] MEDS: Enoxaparin 40 mg Syringe SC SCH (09:37)
--- NOTE | 2016-12-17 14:18 | CP.PCM.PN ---
Subjective - Date & Time of Evaluation Date of Evaluation: 12/17/16 Time of Evaluation: 14:17 - Subjective Subjective: CHIEF COMPLAINTS TODAY : MILD SHAKES LESS WHEEZING ROS. HEENT : N. Resp : No ,pleuritic CP ,or hemoptysis Cardio : No anginal CP, PND, orthopnea, palpitation GI : No abd.pain, n/v ,diarrhea or GI bleeding . 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 Musculoskel : No joint swelling , Derm : No rash Psych : Normal affect. Ext : No swelling ,calf pain PE. Pt. is alert awake in no distress. V.S As noted in the chart Head ,ear nose,throat and eyes : Normal. Neck : Supple with normal carotids. Lungs: RONCHI Heart : S1 & S2 normal with S4. No murmur. Abd : Soft non tender with normal bowel sounds. Neuro : Moves all ext. with no localized deficit. Ext : No edema with intact pulses.Non tender calves TREMORS Derm : No rashes or decubitus ulcer. LABS/RADIOLOGY: ASSESSMENT/PLAN : CONT NEB/LIBRIUM /IV STEROIDS Objective - Vital Signs/Intake and Output Vital Signs (last 24 hours): Temp Pulse Resp BP Pulse Ox 98.4 F 85 18 124/73 99 12/17/16 07:10 12/17/16 07:30 12/17/16 07:10 12/17/16 07:10 12/17/16 07:10 - Medications Medications: Current Medications Albuterol/Ipratropium (Duoneb 3 Mg/0.5 Mg (3 Ml) Ud) 3 ml INH RQ6 [facility] Last Admin: 12/17/16 13:05 Dose: 3 ml Chlordiazepoxide (Librium) 25 mg PO Q8 PRN PRN Reason: Anxiety Last Admin: 12/17/16 12:24 Dose: 25 mg Enoxaparin Sodium (Lovenox) 40 mg SC DAILY [facility] Last Admin: 12/17/16 09:37 Dose: 40 mg Methylprednisolone (Solu-Medrol) 60 mg IV Q8H [facility] Last Admin: 12/17/16 12:23 Dose: 60 mg - Labs Labs: 12/17/16 07:09 12/17/16 07:09
[2016-12-18] MEDS: Albuterol-Ipratrop 3 mg / 0.5 (3 ml) UD INH SCH ×4 (01:04→19:38)
[2016-12-18 07:57] LABS: BASO % 0.1 % (0.0-2.0); HEMATOCRIT 28.9 % (35.0-51.0); LYMPH # 0.7 K/uL (1.0-4.3); LYMPH % 6.2 % (20.0-40.0); MEAN CELL VOLUME 76.3 fL (80.0-94.0); MEAN CORPUSCULAR HEMOGLOBIN 24.3 pg (27.0-31.0); MEAN CORPUSCULAR HGB CONC 31.9 g/dL (33.0-37.0); MEAN PLATELET VOLUME 9.3 fL (7.2-11.7); MONO # 0.5 K/uL (0.0-0.8); MONO % 4.7 % (0.0-10.0); PLATELET COUNT 212 K/uL (130-400); RED CELL DISTRIBUTION WIDTH 19.4 % (11.5-14.5)
[2016-12-18 08:10] LABS: CHLORIDE 106 mmol/L (98-107); POTASSIUM 3.7 mmol/L (3.6-5.2); SODIUM 135 mmol/L (132-148)
[2016-12-18 08:12] LABS: ALB/GLOB RATIO 1.2 (1.0-2.1); ALKALINE PHOSPHATASE 92 U/L (38-126); AST/SGOT 23 U/L (17-59); BILIRUBIN,TOTAL 0.4 mg/dL (0.2-1.3); CARBON DIOXIDE 21 mmol/L (22-30); GFR AFRICAN-AMERICAN > 60
[2016-12-18 08:13] LABS: ALT/SGPT 35 U/L (21-72); BLOOD UREA NITROGEN 29 mg/dL (9-20); CALCIUM 7.7 mg/dl (8.6-10.4); GLUCOSE,RANDOM 130 mg/dL (75-110)
[2016-12-18 10:13] LABS: NEUTROPHIL 93 % (50-75); TOTAL CELLS COUNTED 100
[2016-12-18] MEDS: Enoxaparin 40 mg Syringe SC SCH (12:06)
--- NOTE | 2016-12-18 14:47 | CP.PCM.PN ---
Subjective - Date & Time of Evaluation Date of Evaluation: 12/18/16 Time of Evaluation: 14:47 - Subjective Subjective: CHIEF COMPLAINTS TODAY : MILD SHAKES LESS WHEEZING ROS. HEENT : N. Resp : No ,pleuritic CP ,or hemoptysis Cardio : No anginal CP, PND, orthopnea, palpitation GI : No abd.pain, n/v ,diarrhea or GI bleeding . 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 Musculoskel : No joint swelling , Derm : No rash Psych : Normal affect. Ext : No swelling ,calf pain PE. Pt. is alert awake in no distress. V.S As noted in the chart Head ,ear nose,throat and eyes : Normal. Neck : Supple with normal carotids. Lungs: RONCHI Heart : S1 & S2 normal with S4. No murmur. Abd : Soft non tender with normal bowel sounds. Neuro : Moves all ext. with no localized deficit. Ext : No edema with intact pulses.Non tender calves TREMORS Derm : No rashes or decubitus ulcer. LABS/RADIOLOGY: ASSESSMENT/PLAN : CONT NEB/LIBRIUM /IV STEROIDS Objective - Vital Signs/Intake and Output Vital Signs (last 24 hours): Temp Pulse Resp BP Pulse Ox 98.2 F 89 20 123/66 98 12/18/16 07:00 12/18/16 07:30 12/18/16 07:00 12/18/16 07:00 12/18/16 07:00 Intake and Output: 12/18/16 12/18/16 11:59 23:59 Output Total 300 Balance -300 - Medications Medications: Current Medications Albuterol/Ipratropium (Duoneb 3 Mg/0.5 Mg (3 Ml) Ud) 3 ml INH RQ6 [facility] Last Admin: 12/18/16 13:16 Dose: 3 ml Chlordiazepoxide (Librium) 25 mg PO Q8 PRN PRN Reason: Anxiety Last Admin: 12/18/16 12:08 Dose: 25 mg Enoxaparin Sodium (Lovenox) 40 mg SC DAILY [facility] Last Admin: 12/18/16 12:06 Dose: 40 mg Methylprednisolone (Solu-Medrol) 60 mg IV Q8H [facility] Last Admin: 12/18/16 12:07 Dose: 60 mg - Labs Labs: 12/18/16 07:45 12/18/16 07:45
[2016-12-19] MEDS: Albuterol-Ipratrop 3 mg / 0.5 (3 ml) UD INH SCH ×4 (01:57→19:52)
[2016-12-19] MEDS: Enoxaparin 40 mg Syringe SC SCH (09:23)
--- NOTE | 2016-12-19 13:34 | CP.PCM.PN ---
Subjective - Date & Time of Evaluation Date of Evaluation: 12/19/16 Time of Evaluation: 13:34 - Subjective Subjective: CHIEF COMPLAINTS TODAY : MILD SHAKES LESS WHEEZING ROS. HEENT : N. Resp : No ,pleuritic CP ,or hemoptysis Cardio : No anginal CP, PND, orthopnea, palpitation GI : No abd.pain, n/v ,diarrhea or GI bleeding . 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 Musculoskel : No joint swelling , Derm : No rash Psych : Normal affect. Ext : No swelling ,calf pain PE. Pt. is alert awake in no distress. V.S As noted in the chart Head ,ear nose,throat and eyes : Normal. Neck : Supple with normal carotids. Lungs: RONCHI Heart : S1 & S2 normal with S4. No murmur. Abd : Soft non tender with normal bowel sounds. Neuro : Moves all ext. with no localized deficit. Ext : No edema with intact pulses.Non tender calves TREMORS Derm : No rashes or decubitus ulcer. LABS/RADIOLOGY: ASSESSMENT/PLAN : CONT NEB/LIBRIUM /IV STEROIDS Objective - Vital Signs/Intake and Output Vital Signs (last 24 hours): Temp Pulse Resp BP Pulse Ox 98.0 F 69 18 136/89 98 12/19/16 07:10 12/19/16 07:30 12/19/16 07:10 12/19/16 07:10 12/19/16 07:10 Intake and Output: 12/19/16 12/19/16 11:59 23:59 Output Total 300 Balance -300 - Medications Medications: Current Medications Albuterol/Ipratropium (Duoneb 3 Mg/0.5 Mg (3 Ml) Ud) 3 ml INH RQ6 [facility] Last Admin: 12/19/16 07:49 Dose: 3 ml Chlordiazepoxide (Librium) 25 mg PO Q8 PRN PRN Reason: Anxiety Last Admin: 12/19/16 13:06 Dose: 25 mg Enoxaparin Sodium (Lovenox) 40 mg SC DAILY [facility] Last Admin: 12/19/16 09:23 Dose: 40 mg Methylprednisolone (Solu-Medrol) 60 mg IV Q8H [facility] Last Admin: 12/19/16 13:04 Dose: 60 mg - Labs Labs: 12/18/16 07:45 12/18/16 07:45
[2016-12-20 01:36] VITALS: RESP 20
[2016-12-20] MEDS: Albuterol-Ipratrop 3 mg / 0.5 (3 ml) UD INH SCH ×3 (01:38→13:20)
[2016-12-20] MEDS: Enoxaparin 40 mg Syringe SC SCH (10:00)
[2016-12-20 12:25] LABS: BASO % 0.1 % (0.0-2.0); HEMATOCRIT 30.1 % (35.0-51.0); LYMPH # 1.1 K/uL (1.0-4.3); LYMPH % 8.5 % (20.0-40.0); MEAN CELL VOLUME 77.7 fL (80.0-94.0); MEAN CORPUSCULAR HEMOGLOBIN 24.4 pg (27.0-31.0); MEAN CORPUSCULAR HGB CONC 31.4 g/dL (33.0-37.0); MEAN PLATELET VOLUME 9.5 fL (7.2-11.7); MONO # 0.4 K/uL (0.0-0.8); MONO % 3.3 % (0.0-10.0); NRBC % 0.1 % (0.0-2.0); PLATELET COUNT 235 K/uL (130-400); RED CELL DISTRIBUTION WIDTH 19.8 % (11.5-14.5)
[2016-12-20 12:48] LABS: CHLORIDE 101 mmol/L (98-107); POTASSIUM 3.5 mmol/L (3.6-5.2); SODIUM 134 mmol/L (132-148)
[2016-12-20 12:50] LABS: BILIRUBIN,TOTAL 0.3 mg/dL (0.2-1.3); GFR AFRICAN-AMERICAN > 60
[2016-12-20 12:51] LABS: ALB/GLOB RATIO 1.1 (1.0-2.1); ALKALINE PHOSPHATASE 91 U/L (38-126); ALT/SGPT 46 U/L (21-72); AST/SGOT 26 U/L (17-59); BLOOD UREA NITROGEN 27 mg/dL (9-20); CALCIUM 7.5 mg/dl (8.6-10.4); CARBON DIOXIDE 22 mmol/L (22-30); GLUCOSE,RANDOM 203 mg/dL (75-110); NEUTROPHIL 89 % (50-75); NUCLEATED RED BLOOD CELL 1 % (0-0); TOTAL CELLS COUNTED 100; TOTAL PROTEIN 5.8 g/dL (6.3-8.3)
[2016-12-20 12:53] LABS: LARGE PLATELETS PRESENT
--- NOTE | 2016-12-20 12:53 | CP.PCM.PN ---
Subjective - Date & Time of Evaluation Date of Evaluation: 12/20/16 Time of Evaluation: 12:52 - Subjective Subjective: CHIEF COMPLAINTS TODAY : MILD SHAKES LESS WHEEZING ROS. HEENT : N. Resp : No ,pleuritic CP ,or hemoptysis Cardio : No anginal CP, PND, orthopnea, palpitation GI : No abd.pain, n/v ,diarrhea or GI bleeding . INTEGRATION LEAD : No headache, vertigo, focal deficit. Musculoskel : No joint swelling , Derm : No rash Psych : Normal affect. Ext : No swelling ,calf pain PE. Pt. is alert awake in no distress. V.S As noted in the chart Head ,ear nose,throat and eyes : Normal. Neck : Supple with normal carotids. Lungs: RONCHI Heart : S1 & S2 normal with S4. No murmur. Abd : Soft non tender with normal bowel sounds. Neuro : Moves all ext. with no localized deficit. Ext : No edema with intact pulses.Non tender calves TREMORS Derm : No rashes or decubitus ulcer. LABS/RADIOLOGY: ASSESSMENT/PLAN : CONT NEB/LIBRIUM /IV STEROIDS PT FOR AMBULATION Objective - Vital Signs/Intake and Output Vital Signs (last 24 hours): Temp Pulse Resp BP Pulse Ox 98.2 F 72 20 117/71 96 12/20/16 07:00 12/20/16 07:30 12/20/16 07:00 12/20/16 07:00 12/20/16 07:00 - Medications Medications: Current Medications Albuterol/Ipratropium (Duoneb 3 Mg/0.5 Mg (3 Ml) Ud) 3 ml INH RQ6 [facility] Last Admin: 12/20/16 07:17 Dose: 3 ml Chlordiazepoxide (Librium) 25 mg PO Q8 PRN PRN Reason: Anxiety Last Admin: 12/19/16 13:06 Dose: 25 mg Enoxaparin Sodium (Lovenox) 40 mg SC DAILY [facility] Last Admin: 12/19/16 09:23 Dose: 40 mg Methylprednisolone (Solu-Medrol) 60 mg IV Q8H [facility] Last Admin: 12/19/16 21:00 Dose: 60 mg - Labs Labs: 12/20/16 12:17 12/20/16 12:17
--- NOTE | 2016-12-20 13:42 | CP.PCM.PN ---
Subjective - Date & Time of Evaluation Date of Evaluation: 12/20/16 Time of Evaluation: 13:42 - Subjective Subjective: PT SEEN AND CLEARED FOR D/C HOME TODAY. PT RECOMMENDS HOME PT; PT IS NOT HOME BOUND. RX GIVEN FOR OUTPATIENT PT AND PT HAS ALREADY ESTABLISHED HIMSELF W AN OP PT FACILITY IN [place]--HE WILL RETURN THERE. NO TREMORS NOTED. PT IN GOOD SPIRITS AND AGREES W D/C PLAN. WILL F.U WITH PMD DR. LUCIO IN HER OFFICE. DOES NOT NEED REFILLS--PER PT HE HAS ALL "OF MY MEDICINE ALREADY." ONLY REQUESTING VOUCHER FROM HOSPITAL TO TAKE TAXI HOME. NO FURTHER ORDERS. Objective - Vital Signs/Intake and Output Vital Signs (last 24 hours): Temp Pulse Resp BP Pulse Ox 98.2 F 72 20 117/71 96 12/20/16 07:00 12/20/16 07:30 12/20/16 07:00 12/20/16 07:00 12/20/16 07:00 - Medications Medications: Current Medications Albuterol/Ipratropium (Duoneb 3 Mg/0.5 Mg (3 Ml) Ud) 3 ml INH RQ6 [facility] Last Admin: 12/20/16 13:20 Dose: 3 ml Chlordiazepoxide (Librium) 25 mg PO Q8 PRN PRN Reason: Anxiety Last Admin: 12/20/16 13:06 Dose: 25 mg Enoxaparin Sodium (Lovenox) 40 mg SC DAILY [facility] Last Admin: 12/20/16 10:00 Dose: 40 mg Methylprednisolone (Solu-Medrol) 60 mg IV Q8H [facility] Last Admin: 12/20/16 13:03 Dose: 60 mg - Labs Labs: 12/20/16 12:17 12/20/16 12:17
[2016-12-20 15:51] VITALS: BP 126/70; PULSE 80; TEMP 98.1; O2SAT 98
--- NOTE | 2016-12-22 12:30 | CP.PCM.DIS ---
Provider - Provider Date of Admission: 12/15/16 16:31 Attending physician: Hiro Turcios MD Time Spent in preparation of Discharge (in minutes): 30 Hospital Course - Lab Results Lab Results: Most Recent Lab Values WBC 13.0 K/uL (4.8-10.8) H 12/20/16 12:17 RBC 3.88 Mil/uL (4.40-5.90) L 12/20/16 12:17 Hgb 9.5 g/dL (12.0-18.0) L 12/20/16 12:17 Hct 30.1 % (35.0-51.0) L 12/20/16 12:17 MCV 77.7 fL (80.0-94.0) L 12/20/16 12:17 MCH 24.4 pg (27.0-31.0) L 12/20/16 12:17 MCHC 31.4 g/dL (33.0-37.0) L 12/20/16 12:17 RDW 19.8 % (11.5-14.5) H 12/20/16 12:17 Plt Count 235 K/uL (130-400) 12/20/16 12:17 MPV 9.5 fL (7.2-11.7) 12/20/16 12:17 Neut % (Auto) 88.1 % (50.0-75.0) H 12/20/16 12:17 Lymph % (Auto) 8.5 % (20.0-40.0) L 12/20/16 12:17 Bullock % (Auto) 3.3 % (0.0-10.0) 12/20/16 12:17 Eos % (Auto) 0.0 % (0.0-4.0) 12/20/16 12:17 Baso % (Auto) 0.1 % (0.0-2.0) 12/20/16 12:17 Neut # 11.4 K/uL (1.8-7.0) H 12/20/16 12:17 Lymph # 1.1 K/uL (1.0-4.3) 12/20/16 12:17 Bullock # 0.4 K/uL (0.0-0.8) 12/20/16 12:17 Eos # 0.0 K/uL (0.0-0.7) 12/20/16 12:17 Baso # 0.0 K/uL (0.0-0.2) 12/20/16 12:17 Neutrophils % (Manual) 89 % (50-75) H 12/20/16 12:17 Band Neutrophils % 1 % (0-2) 12/20/16 12:17 Lymphocytes % (Manual) 6 % (20-40) L 12/20/16 12:17 Monocytes % (Manual) 4 % (0-10) 12/20/16 12:17 Nucleated RBC % 1 % (0-0) H 12/20/16 12:17 Platelet Estimate Normal (NORMAL) 12/20/16 12:17 Large Platelets Present 12/20/16 12:17 Polychromasia Slight 12/18/16 07:45 Hypochromasia (manual) Slight 12/20/16 12:17 Poikilocytosis (manual Slight 12/20/16 12:17 Anisocytosis (manual) Slight 12/20/16 12:17 Microcytosis (manual) Slight 12/20/16 12:17 Target Cells Slight 12/20/16 12:17 Tear Drop Cells Slight 12/20/16 12:17 Ovalocytes Slight 12/20/16 12:17 Lissa Cells Slight 12/20/16 12:17 Sodium 134 mmol/L (132-148) 12/20/16 12:17 Potassium 3.5 mmol/L (3.6-5.2) L 12/20/16 12:17 Chloride 101 mmol/L (98-107) 12/20/16 12:17 Carbon Dioxide 22 mmol/L (22-30) 12/20/16 12:17 Anion Gap 15 (10-20) 12/20/16 12:17 BUN 27 mg/dL (9-20) H 12/20/16 12:17 Creatinine 1.0 MG/DL (0.8-1.5) 12/20/16 12:17 Est GFR ( Amer) > 60 12/20/16 12:17 Est GFR (Non-Af Amer) > 60 12/20/16 12:17 Random Glucose 203 mg/dL (75-110) H 12/20/16 12:17 Calcium 7.5 mg/dl (8.6-10.4) L 12/20/16 12:17 Magnesium 1.8 mg/dL (1.6-2.3) 12/16/16 06:28 Total Bilirubin 0.3 mg/dL (0.2-1.3) 12/20/16 12:17 AST 26 U/L (17-59) 12/20/16 12:17 ALT 46 U/L (21-72) 12/20/16 12:17 Alkaline Phosphatase 91 U/L (38-126) 12/20/16 12:17 Troponin I < 0.0120 ng/mL (0.00-0.120) 12/15/16 14:04 NT-Pro-B Natriuret Pep 43 pg/mL (0-900) 12/15/16 14:04 Total Protein 5.8 g/dL (6.3-8.3) L 12/20/16 12:17 Albumin 3.1 g/dL (3.5-5.0) L 12/20/16 12:17 Globulin 2.7 gm/dL (2.2-3.9) 12/20/16 12:17 Albumin/Globulin Ratio 1.1 (1.0-2.1) 12/20/16 12:17 Influenza Typ A,B (EIA) Negative for flu a/b (NEGATIVE) 12/15/16 11:00 - Hospital Course Hospital Course: 1 y/o male, with PMHx of Asthma, COPD, HTN, and alcohol abuse, presents to the ED for evaluation of shortness of breath which began at around 0500 this morning. Patient was unable to find relief after using his inhaler. Patient also complains of alcohol withdrawal. Patient states he was binge drinking earlier this week and his last drink was yesterday. PT. HAD UNEVENTFUL STAY IMPROVED ON LIBRIUM AND NEBULISER TREATMENTS PT WAS D/C HOME COUNSELLED TO STOP ALCOHOL Discharge Plan - Follow Up Plan Condition: GUARDED Disposition: HOME/ ROUTINE Instructions: Heart Failure (DC), How to Stop Smoking (DC), Heart Healthy Diet (DC), Cigarette Smoking and Your Health (GEN), COPD (Chronic Obstructive Pulmonary Disease) (DC), Alcohol Intoxication (DC), Abuse of Alcohol (DC) Additional Instructions: FOLLOW UP WITH DR. LUCIO (PRIMARY DOCTOR) IN THE OFFICE WITHIN 1-2WEEKS---CALL FOR APPT TIME. CONTINUE YOUR HOME MEDICATIONS USUAL. REMEMBER TO TAKE THE RIGHT INHALER AT THE RIGHT TIME! MAKE SURE YOU START THE STEROID (MEDROL) TOMORROW AND TAKE EXACTLY DIRECTED ON THE BOX. YOU HAVE BEEN GIVEN A PRESCRIPTION FOR OUTPATIENT PHYSICAL THERAPY----MAKE YOUR ARRANGEMENTS W A FACILITY OF YOUR CHOICE. FOR FURTHER QUESTIONS OR CONCERNS, CONTACT DR. TURCIOS'S OFFICE. Referrals: Carlene Lucio MD [Staff Provider] - Hiro Turcios MD [Staff Provider] -
== END 2016-12-20 18:33 | disposition home or self-care (01) | DRG 191 ==
LOC: C.ER 10:08 → C.6T 16:31
PROVIDERS: ADMIT Internal Medicine Cardiovascular Disease; ATTEND Internal Medicine Cardiovascular Disease
DX: J44.1 Chronic obstructive pulmonary disease with (acute) exacerbation (principal); F10.230 Alcohol dependence with withdrawal, uncomplicated; I10 Essential (primary) hypertension; F17.210 Nicotine dependence, cigarettes, uncomplicated; E78.00 Pure hypercholesterolemia, unspecified; F41.9 Anxiety disorder, unspecified

== ENCOUNTER 2017-01-11 02:53 | Emergency (ER) | payer MEDICARE ==
[2017-01-11 02:54] VITALS: BMI 31.0
[2017-01-11 03:02] VITALS: O2SAT 97
[2017-01-11] MEDS: Albuterol-Ipratrop 3 mg / 0.5 (3 ml) UD IH SCH ×2 (03:30→03:50)
--- NOTE | 2017-01-11 03:30 | C.PDOC ---
History Of Present Illness 61 year old male who presents to the ER with a complaint of groin pain that began today. Patient denies trauma, injury, urinary symptoms, blood in stool, diarrhea, constipation, scrotal pain/swelling, penile discharge, abdominal pain , fever, trauma, injury, or joint pain. Time Seen by Provider: 01/11/17 02:55 Chief Complaint (Nursing): Groin Pain History Per: Patient History/Exam Limitations: no limitations Onset/Duration Of Symptoms: Hrs Current Symptoms Are (Timing): Still Present Quality Of Discomfort: Unable To Describe Associated Symptoms: denies: Fever, Urinary Symptoms, Other (Scrotal pain/ swelling, Penile discharge) Alleviating Factors: None Recent travel outside of the [place]: No Past Medical History Reviewed: Historical Data, Nursing Documentation, Vital Signs Vital Signs: Last Vital Signs Temp 98.9 F 01/11/17 02:59 Pulse 100 H 01/11/17 02:59 Resp 18 01/11/17 02:59 BP 141/77 01/11/17 02:59 Pulse Ox 97 01/11/17 03:36 - Medical History PMH: Anxiety, Asthma, Bronchitis, COPD, Emphysema, HTN, Hypercholesterolemia - [facility] Procedures ALCOHOL DETOXIFICATION (07/16/14) DETOXIFICATION SERVICES FOR SUBSTANCE ABUSE TREATMENT (10/01/15) EXCISION OF TOE NAIL, EXTERNAL APPROACH (02/12/15) FLUOROSCOPY OF SUPERIOR VENA CAVA, GUIDANCE (02/21/15) HOME MANAGEMENT TREATMENT (02/12/15) INFLUENZA VACCINATION (12/19/14) INJECT/INFUSE NEC (02/12/14) INSERTION OF INFUSION DEV INTO SUP VENA CAVA, PERC APPROACH (09/09/15) INTRODUCE OF OTH THERAP SUBST INTO RESP TRACT, VIA OPENING (02/12/15) INTRODUCTION OF ANTI-INFLAM INTO RESP TRACT, VIA OPENING (08/27/15) MEDS MGMT FOR SUBSTANCE ABUSE TREATMENT, OTH REPL MED (01/11/16) NEBULIZER THERAPY (12/19/14) OXYGEN ENRICHMENT NEC (09/25/13) THERAPEUTIC EXERCISE TREATMENT OF MUSCULOSK WHOLE (02/12/15) ULTRASONOGRAPHY OF SUPERIOR VENA CAVA, GUIDANCE (02/21/15) VACCINATION NEC (09/25/13) Family History: States: Unknown Family Hx - Social History Hx Tobacco Use: Yes Hx Alcohol Use: Yes Hx Substance Use: No - Immunization History Hx Tetanus Toxoid Vaccination: Yes Hx Influenza Vaccination: Yes (01/2015) Hx Pneumococcal Vaccination: Yes Review Of Systems Constitutional: Negative for: Fever, Chills Cardiovascular: Negative for: Chest Pain, Palpitations Respiratory: Positive for: Wheezing (chronic wheezing). Negative for: Cough, Shortness of Breath Gastrointestinal: Negative for: Nausea, Vomiting, Abdominal Pain Genitourinary: Positive for: Other (Groin pain). Negative for: Dysuria, Hematuria, Penile Discharge, Scrotal Pain, Penile Pain Musculoskeletal: Negative for: Neck Pain, Back Pain Neurological: Negative for: Weakness, Numbness, Other (Joint pain) Physical Exam - Physical Exam Appears: Non-toxic, Unkempt Skin: Normal Color, Warm, Dry Head: Atraumatic, Normacephalic Oral Mucosa: Moist Neck: Normal, Normal ROM, Supple Lymphatic: No Adenopathy, No Inguinal Node Tenderness Chest: Symmetrical, No Tenderness Cardiovascular: Rhythm Regular Respiratory: No Accessory Muscle Use, No Rales, No Rhonchi, Wheezing (Expiratory ) Gastrointestinal/Abdominal: Soft, Tenderness (Suprapubic), No Guarding, No Rebound Back: Normal Inspection, No Vertebral Tenderness Extremity: Normal ROM (x4), Tenderness (Bilateral hips, mild tenderness, right greater then left) Neurological/Psych: Oriented x3, Normal Speech, Normal Cognition, Normal Cranial Nerves, Normal Motor, Normal Sensation, Other (+tremors noted) ED Course And Treatment - Laboratory Results Lab Interpretation: Normal O2 Sat by Pulse Oximetry: 97 (Room air) Pulse Ox Interpretation: Normal - Other Rad XR b/l hips X-Ray: Interpreted by Me Interpretation: (-) fracture, (-) dislocation Medical Decision Making Medical Decision Making: Plan: * Tylenol * Duoneb * Librium * Prednisone * Urine culture * Hip x-ray * Urinalysis On re-evaluation, patient is still with mild tremors noted, given another dose of librium 100 mg PO. Lungs clear with no wheezing. XR reviewed and show no acute findings, UA is negative. On re-evaluation, patient is able to stand up and ambulate with his walker. Patient advised to f/ u with his pmd or the clinic for further evaluation. 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 - Scribe Statement The provider has reviewed the documentation as recorded by the Scribe Rainer Burns All medical record entries made by the Scribe were at my direction and personally dictated by me. I have reviewed the chart and agree that the record accurately reflects my personal performance of the history, physical exam, medical decision making, and the department course for this patient. I have also personally directed, reviewed, and agree with the discharge instructions and disposition.
[2017-01-11] MEDS ORDERED: Albuterol-Ipratrop 3 mg / 0.5 (3 ml) UD ONE ×2 (03:44→03:48)
[2017-01-11 05:26] LABS: RBC URINE < 1 /hpf (0-3); URINE BILIRUBIN NEGATIVE (NEGATIVE); URINE BLOOD NEGATIVE (NEGATIVE); URINE COLOR Yellow (YELLOW); URINE GLUCOSE (UA) NORMAL (Normal); URINE KETONE TRACE mg/dL (NEGATIVE); URINE LEUKOCYTE ESTERASE NEG Leu/uL (Negative); URINE PROTEIN NEGATIVE (NEGATIVE); WBC URINE < 1 /hpf (0-5)
[2017-01-11 06:47] VITALS: BP 159/91; PULSE 91; RESP 20; TEMP 98.2
--- NOTE | 2017-01-11 14:31 | RAD ---
Pelvis and bilateral hips two views History: Pain. Comparison: None available. Findings: Right hip: Prominent sclerosis seen throughout the right femoral head which may represent underlying avascular necrosis versus osteonecrosis versus severe degenerative change versus subchondral osseous injury versus additional etiology. Correlation with MRI may be helpful if clinically indicated. Severe degenerative changes at the right hip joint space with joint space narrowing and osteophytosis. Suggestion of a prominent geode within the right femoral head. No evidence of acute displaced fracture dislocation. Heterotopic calcification seen at the right greater trochanter. Moderate degenerative changes of the left hip joint space with subchondral sclerosis and osteophytosis. Left hip: Patchy sclerosis at the left femoral head which may represent underlying avascular necrosis versus osteonecrosis versus severe degenerative change versus subchondral osseous injury versus additional etiology. Correlation with MRI may be helpful if clinically indicated. No evidence of acute displaced fracture or dislocation. Degenerative changes in the lower lumbar spine with paravertebral osteophytes. Osteitis pubis. Degenerative changes in lower lumbar spine. Productive change along the bilateral iliac crests. Degenerative changes of the bilateral SI joints with subchondral sclerosis. Impression: 1. Prominent sclerosis seen throughout the right femoral head which may represent underlying avascular necrosis versus osteonecrosis versus severe degenerative change versus subchondral osseous injury versus additional etiology. Correlation with MRI may be helpful if clinically indicated. 2. Severe degenerative changes at the right hip joint space with joint space narrowing and osteophytosis. 3. Suggestion of a prominent geode within the right femoral head. 4. Heterotopic calcification seen at the right greater trochanter. 5. Moderate degenerative changes of the left hip joint space with subchondral sclerosis and osteophytosis. 6. Patchy sclerosis at the left femoral head which may represent underlying avascular necrosis versus osteonecrosis versus severe degenerative change versus subchondral osseous injury versus additional etiology. Correlation with MRI may be helpful if clinically indicated. 7. Degenerative changes in the lower lumbar spine with paravertebral osteophytes. 8. Osteitis pubis. 9. Degenerative changes in lower lumbar spine. 10. Productive change along the bilateral iliac crests. 11. Degenerative changes of the bilateral SI joints with subchondral sclerosis.
== END 2017-01-11 06:30 | disposition home or self-care (01) ==
LOC: C.ER 02:53
DX: R10.30 Lower abdominal pain, unspecified (principal); J45.909 Unspecified asthma, uncomplicated

== ENCOUNTER 2017-01-14 09:24 | Emergency (ER) | payer MEDICARE ==
[2017-01-14 09:24] VITALS: BMI 31.0
[2017-01-14 09:29] VITALS: RESP 20; TEMP 98.8
--- NOTE | 2017-01-14 09:47 | C.PDOC ---
History Of Present Illness 61 year old male presents to the ED SP falling while taking out the garbage, patient states there were egg shells on his steps and that " If I were holding the railing I wouldn't have fallen". 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 He states having the groin pain approximately for 6 months, and the left knee pain and swelling from approximately 1 month. Patient was able to walk into the ED. He denies any associated injury, trauma, LOC/head injury, extremity weakness or numbness. 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 S/P FALL THIS MORNING, PS TRYING TO THROW OUT GARBAGE WHILE HOLDING WALKING AND GARBAGE BAG. "IF I WERE HOLDING THE RAILING I WOULDN'T HAVE FALLEN". PS THERE WERE EGG SHELLS ON STAIR STEPS. PS W GROIN PAIN APPROX 6 MONTHS, L KNEE PAIN AND SWELLING X 1 MO. 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 DENIES OTHER ASSOC INJURY OR SX. PS USING WALKING SINCE DC FROM [place] IN [place] >6 MONTHS AGO. 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 PMHx of Asthma, COPD, HTN, and alcohol abuse CHRONIC LEG, GROIN PAIN EXAM NEG - HPI Time Seen by Provider: 01/14/17 09:45 Chief Complaint (Nursing): Lower Extremity Problem/Injury History Per: Patient History/Exam Limitations: no limitations Onset/Duration Of Symptoms: Persistent Injury Occurred (Timing): Hours Ago: Location Of Injury: Left: Knee Recent travel outside of the [place]: No Additional History Per: Patient - Fall Fall:Prior To Injury: Slipped Past Medical History Reviewed: Historical Data, Nursing Documentation, Vital Signs Vital Signs: Last Vital Signs Temp 98.8 F 01/14/17 09:34 Pulse 89 01/14/17 11:07 Resp 20 01/14/17 11:07 BP 153/87 H 01/14/17 11:07 Pulse Ox 99 01/14/17 14:21 - Medical History PMH: Anxiety, Asthma, Bronchitis, COPD, Emphysema, HTN, Hypercholesterolemia Denies: Diabetes, Hepatitis, HIV, Chronic Kidney Disease, Seizures, Sexually Transmitted Disease Surgical History: No Surg Hx - [facility] Procedures ALCOHOL DETOXIFICATION (07/16/14) DETOXIFICATION SERVICES FOR SUBSTANCE ABUSE TREATMENT (10/01/15) EXCISION OF TOE NAIL, EXTERNAL APPROACH (02/12/15) FLUOROSCOPY OF SUPERIOR VENA CAVA, GUIDANCE (02/21/15) HOME MANAGEMENT TREATMENT (02/12/15) INFLUENZA VACCINATION (12/19/14) INJECT/INFUSE NEC (02/12/14) INSERTION OF INFUSION DEV INTO SUP VENA CAVA, PERC APPROACH (09/09/15) INTRODUCE OF OTH THERAP SUBST INTO RESP TRACT, VIA OPENING (02/12/15) INTRODUCTION OF ANTI-INFLAM INTO RESP TRACT, VIA OPENING (08/27/15) MEDS MGMT FOR SUBSTANCE ABUSE TREATMENT, OTH REPL MED (01/11/16) NEBULIZER THERAPY (12/19/14) OXYGEN ENRICHMENT NEC (09/25/13) THERAPEUTIC EXERCISE TREATMENT OF MUSCULOSK WHOLE (02/12/15) ULTRASONOGRAPHY OF SUPERIOR VENA CAVA, GUIDANCE (02/21/15) VACCINATION NEC (09/25/13) Family History: States: Unknown Family Hx - Social History Hx Tobacco Use: Yes Hx Alcohol Use: Yes Hx Substance Use: No - Immunization History Hx Tetanus Toxoid Vaccination: Yes Hx Influenza Vaccination: Yes (01/2015) Hx Pneumococcal Vaccination: Yes Review Of Systems Constitutional: Negative for: Weakness Eyes: Negative for: Vision Change Gastrointestinal: Negative for: Nausea Musculoskeletal: Positive for: Leg Pain Neurological: Negative for: Weakness, Numbness Physical Exam - Physical Exam Appears: Non-toxic, No Acute Distress Skin: Normal Color, Warm, Dry Head: Atraumatic, Normacephalic Oral Mucosa: Moist Neck: Normal, Supple Back: Normal Inspection Extremity: Normal ROM, No Tenderness, Capillary Refill (less than 2 seconds), No Deformity, No Swelling Neurological/Psych: Oriented x3, Normal Speech, Normal Cognition, Normal Motor, Normal Sensation Gait: Steady ED Course And Treatment O2 Sat by Pulse Oximetry: 99 (On RA) Pulse Ox Interpretation: Normal - Other Rad Left Knee X-Ray X-Ray: Interpreted by Me, Viewed By Me Interpretation: PROCEDURE: Left Knee Radiographs. HISTORY: Pain. COMPARISON : None. FINDINGS: BONES: No evidence of acute fracture or dislocation. JOINTS: Moderate to severe osteoarthritic changes. JOINT EFFUSION: Suprapatellar joint effusion is noted. OTHER FINDINGS: None. IMPRESSION: No evidence of acute fracture or dislocation. Moderate to severe osteoarthritic changes. Small suprapatellar joint effusion noted. Pelvis X-Ray X-Ray: Interpreted by Me, Viewed By Me Interpretation: PROCEDURE: Radiographs of the pelvis. HISTORY: TRAUMA. COMPARISON: None. FINDINGS: BONES: Pelvic Bones: No evidence of acute fracture. Hips: No evidence of acute fracture or dislocation moderate osteoarthritic changes more prominent on the right. JOINTS: Sacroiliac Joints : Arthritic changes. Pubic Symphysis: Arthritic degenerative changes. OTHER FINDINGS: Soft tissue calcification seen adjacent to the greater trochanteric process bilaterally larger on the right. IMPRESSION: No evidence of acute fracture or dislocation. Moderate osteoarthritic changes. Progress - Re-Evaluation Re-evaluation Note: 01/14/17 11:07 NO ACUTE FINDINGS. DC ADVISED FU CLINIC - Data Reviewed Data Reviewed: Diagnostic imaging, Old records Medical Decision Making Medical Decision Making: Impression: 61 y/o presents to the ED after falling Plan : * Left Knee X-ray, and Pelvis X-ray done * Old records reviewed Disposition Counseled Patient/Family Regarding: Studies Performed, Diagnosis, Need For Followup - Disposition Referrals: YOUR,PMD [Other] Disposition: HOME/ ROUTINE Disposition Time: 11:07 Condition: GOOD Instructions: Osteoarthritis (ED), Contusion in Adults (ED) Forms: [employer] (Zambian) - Clinical Impression Clinical Impression: Chronic groin pain, Chronic knee pain - Scribe Statement The provider has reviewed the documentation as recorded by the Scribe Jack Mckinley All medical record entries made by the Scribe were at my direction and personally dictated by me. I have reviewed the chart and agree that the record accurately reflects my personal performance of the history, physical exam, medical decision making, and the department course for this patient. I have also personally directed, reviewed, and agree with the discharge instructions and disposition.
[2017-01-14 11:08] VITALS: BP 153/87; PULSE 89; O2SAT 99
--- NOTE | 2017-01-14 14:17 | RAD ---
PROCEDURE: Left Knee Radiographs. HISTORY: Pain. COMPARISON: None. FINDINGS: BONES: No evidence of acute fracture or dislocation. JOINTS: Moderate to severe osteoarthritic changes. JOINT EFFUSION: Suprapatellar joint effusion is noted. OTHER FINDINGS: None. IMPRESSION: No evidence of acute fracture or dislocation. Moderate to severe osteoarthritic changes. Small suprapatellar joint effusion noted.
--- NOTE | 2017-01-14 14:24 | RAD ---
PROCEDURE: Radiographs of the pelvis. HISTORY: TRAUMA COMPARISON: None. FINDINGS: BONES: Pelvic Bones: No evidence of acute fracture Hips: No evidence of acute fracture or dislocation moderate osteoarthritic changes more prominent on the right. JOINTS: Sacroiliac Joints: Arthritic changes Pubic Symphysis: Arthritic degenerative changes. OTHER FINDINGS: Soft tissue calcification seen adjacent to the greater trochanteric process bilaterally larger on the right IMPRESSION: No evidence of acute fracture or dislocation. Moderate osteoarthritic changes.
== END 2017-01-14 11:49 | disposition home or self-care (01) ==
LOC: C.ER 09:24
DX: G89.29 Other chronic pain (principal); R10.32 Left lower quadrant pain; R10.31 Right lower quadrant pain; M25.562 Pain in left knee